=== PATIENT | female | born 1940 | race Caucasian/White ===

== ENCOUNTER 2017-06-05 17:13 | Inpatient (IN) | payer MEDICARE, OTHER ==
[2017-06-05] MEDS: SOD CHLORIDE 0.9% 1,000 ML IV (17:42)
[2017-06-05] MEDS: ONDANSETRON 4 MG INJ IV ×3 (17:42→21:48)
[2017-06-05] MEDS: morphine 4 MG/ML VIAL IV (17:43)
[2017-06-05 17:53] LABS: ABNORMAL IP MESSAGE 1; HEMATOCRIT 35.2 % (37.0-47.0); HEMOGLOBIN 12.1 g/dl (12.0-16.0); MEAN CORPUSCULAR HGB CONC 34.4 g/dl (32.0-37.0); MEAN CORPUSCULAR VOLUME 87.3 fl (82.0-101.0); MEAN PLATELET VOLUME 11.4 fl (7.4-10.4); NUCLEATED RED BLOOD CELLS% 0.2 /100WBC (0.0-0.0); PLATELET COUNT 253 10^3/UL (140-415); RED BLOOD COUNT 4.03 10^6/ul (4.20-5.40); RED CELL DISTRIBUTION WIDTH 13.7 % (11.5-14.5)
[2017-06-05 17:53] LABS: WHITE BLOOD COUNT 27.1 10^3/ul (4.8-10.8)
[2017-06-05 18:00] LABS: ADD MAN DIFF? YES; POSITIVE DIFF @See below
[2017-06-05 18:11] LABS: ALANINE AMINOTRANSFERASE 562 IU/L (13-69); ALBUMIN 3.3 g/dl (3.3-4.9); ALBUMIN/GLOBULIN RATIO 0.84; ALKALINE PHOSPHATASE 451 IU/L (42-121); ANION GAP 24 (8-16); ASPARTATE AMINO TRANSFERASE 499 IU/L (15-46); BILIRUBIN,INDIRECT 0.5 mg/dl (0-1.1); BLOOD UREA NITROGEN 67 mg/dl (7-20); CALCIUM 8.9 mg/dl (8.4-10.2); CARBON DIOXIDE 19 mmol/L (21-31); CHLORIDE 98 mmol/L (97-110); CREATININE 3.68 mg/dl (0.44-1.00); GLUCOSE 133 mg/dl (70-220); LIPASE 42 U/L (23-300); POTASSIUM 3.8 mmol/L (3.5-5.1); SODIUM 137 mmol/L (135-144); TOTAL PROTEIN 7.2 g/dl (6.1-8.1)
[2017-06-05 18:13] LABS: INR 1.17; PROTIME 15.1 Sec (11.9-14.9); PT RATIO 1.2
[2017-06-05 18:14] LABS: PARTIAL THROMBOPLASTIN TIME 28.7 Sec (25.0-35.0)
[2017-06-05 18:29] LABS: BAND NEUTROPHILS #M 4.8 10^3/ul (0.0-0.6); BAND NEUTROPHILS % (M) 18 % (0-4); GIANT THROMBO% (M) 1 % (0-0); LYMPHOCYTES #M 1.3 10^3/ul (0.8-2.9); LYMPHOCYTES % (M) 5 % (15-51); METAMYELOCYTES #M 0.5 10^3/ul (0.0-0.0); METAMYELOCYTES %M 2 % (0-0); MONOCYTE #M 2.4 10^3/ul (0.3-0.9); MONOCYTES % (M) 9 % (0-11); PLATELET ESTIMATE NORMAL; SEG NEUT #M 19.2 10^3/ul (1.6-7.5); SEGMENTED NEUTROPHILS (M) % 66 % (39-77); SMUDGE%M 1 % (0-0)
[2017-06-05] MEDS: PIPER-TAZO 3.375 GM IV (PMX) 100 ML IVPB (18:51)
[2017-06-05] MEDS: LACTATED RINGER'S 2,330 ML IV (18:53)
[2017-06-05 19:28] LABS: LACTIC ACID 4.1 mmol/L (0.5-2.0)
[2017-06-05 19:30] LABS: TROPONIN-I < 0.012 ng/ml (0.00-0.12)
[2017-06-05] MEDS: ACETAMINOPHEN 325 MG TAB PO (21:44)
[2017-06-05 22:06] LABS: LACTIC ACID 3.2 mmol/L (0.5-2.0)
[2017-06-06 00:29] LABS: LACTIC ACID 2.7 mmol/L (0.5-2.0)
[2017-06-06] MEDS: SOD CHLORIDE 0.9% 1,000 ML IV ×3 (01:46→16:00)
[2017-06-06] MEDS: ENOXAPARIN 80 MG/0.8 ML SYG SC (02:35)
[2017-06-06] MEDS: PIPER-TAZO 3.375 GM IV (PMX) 100 ML IVPB ×2 (06:30→18:21)
[2017-06-06] MEDS: PANTOPRAZOLE 40 MG INJ IV (06:30)
[2017-06-06 06:35] LABS: HAAIG REFLEX REFLEX FILED
[2017-06-06 06:39] LABS: ADD UMIC YES; UR ASCORBIC ACID NEGATIVE (NEGATIVE); UR BACTERIA FEW /HPF (NONE SEEN); UR BILIRUBIN (Dip) NEGATIVE (NEGATIVE); UR BLOOD (Dip) NEGATIVE (NEGATIVE); UR CLARITY CLOUDY (CLEAR); UR COLOR AMBER (YELLOW); UR GLUCOSE (Dip) NEGATIVE (NEGATIVE); UR KETONES (Dip) NEGATIVE (NEGATIVE); UR LEUKOCYTE ESTERASE (Dip) NEGATIVE Leu/ul (NEGATIVE); UR NITRITE (Dip) NEGATIVE (NEGATIVE); UR RBC 1 /HPF (0-5); UR SPECIFIC GRAVITY (Dip) 1.014 (1.003-1.030); UR SQUAMOUS EPITHELIAL CELL FEW /HPF (FEW); UR TOTAL PROTEIN (Dip) NEGATIVE (NEGATIVE); UR UROBILINOGEN (Dip) NEGATIVE (NEGATIVE); UR WBC 4 /HPF (0-5)
[2017-06-06 06:41] LABS: ABNORMAL IP MESSAGE 1; HEMATOCRIT 29.6 % (37.0-47.0); HEMOGLOBIN 10.4 g/dl (12.0-16.0); MEAN CORPUSCULAR HEMOGLOBIN 30.3 pg (29.0-33.0); MEAN CORPUSCULAR HGB CONC 35.1 g/dl (32.0-37.0); MEAN CORPUSCULAR VOLUME 86.3 fl (82.0-101.0); MEAN PLATELET VOLUME 11.4 fl (7.4-10.4); NUCLEATED RED BLOOD CELLS% 0.1 /100WBC (0.0-0.0); PLATELET COUNT 226 10^3/UL (140-415); RED BLOOD COUNT 3.43 10^6/ul (4.20-5.40)
[2017-06-06 06:41] LABS: WHITE BLOOD COUNT 33.9 10^3/ul (4.8-10.8)
[2017-06-06 06:52] LABS: ADD MAN DIFF? YES; POSITIVE DIFF @See below
[2017-06-06 07:01] LABS: ALANINE AMINOTRANSFERASE 425 IU/L (13-69); ALBUMIN 2.7 g/dl (3.3-4.9); ALBUMIN/GLOBULIN RATIO 0.79; ALKALINE PHOSPHATASE 341 IU/L (42-121); ANION GAP 19 (8-16); ASPARTATE AMINO TRANSFERASE 344 IU/L (15-46); BILIRUBIN,INDIRECT 0.5 mg/dl (0-1.1); BILIRUBIN,TOTAL 2.8 mg/dl (0.2-1.3); BLOOD UREA NITROGEN 72 mg/dl (7-20); CALCIUM 8.3 mg/dl (8.4-10.2); CARBON DIOXIDE 18 mmol/L (21-31); CHLORIDE 106 mmol/L (97-110); CREATININE 3.33 mg/dl (0.44-1.00); GLUCOSE 118 mg/dl (70-220); MAGNESIUM 2.2 mg/dl (1.7-2.5); POTASSIUM 4.6 mmol/L (3.5-5.1); SODIUM 138 mmol/L (135-144); TOTAL PROTEIN 6.1 g/dl (6.1-8.1)
[2017-06-06 07:11] LABS: BILIRUBIN,INDIRECT 0.4 mg/dl (0-1.1); BILIRUBIN,TOTAL 2.6 mg/dl (0.2-1.3)
[2017-06-06 07:21] LABS: AMYLASE < 30 U/L (11-123)
[2017-06-06 07:22] LABS: IRON 25 ug/dl (35-150)
[2017-06-06 07:29] LABS: CARCINOEMBRYONIC ANTIGEN 0.5 ng/ml (0.0-5.0)
[2017-06-06 07:33] LABS: % IRON SATURATION 13 % SAT (22-52); TOTAL IRON BINDING CAPACITY 186 ug/dl (241-421)
[2017-06-06 08:12] LABS: HEPATITIS B CORE ANTIBODY NEGATIVE (NEGATIVE); HEPATITIS C VIRAL ANTIBODY NEGATIVE (NEGATIVE)
[2017-06-06 08:13] LABS: BAND NEUTROPHILS #M 11.8 10^3/ul (0.0-0.6); BAND NEUTROPHILS % (M) 35 % (0-4); GIANT THROMBO% (M) 2 % (0-0); LYMPHOCYTES #M 2.3 10^3/ul (0.8-2.9); LYMPHOCYTES % (M) 7 % (15-51); MONOCYTE #M 0.6 10^3/ul (0.3-0.9); MONOCYTES % (M) 2 % (0-11); PLATELET ESTIMATE NORMAL; REACTIVE LYMPHOCYTES #M 0.3 10^3/ul (0.0-0.0); REACTIVE LYMPHOCYTES% (M) 1 % (0-0); SEG NEUT #M 22.6 10^3/ul (1.6-7.5); SEGMENTED NEUTROPHILS (M) % 55 % (39-77); SMUDGE%M 3 % (0-0)
[2017-06-06 08:18] LABS: HEPATITIS B SURFACE ANTIGEN NEGATIVE (NEGATIVE)
[2017-06-06] MEDS: SOD FERRIC GLUC COMPLX 125 MG in SOD CHLORIDE 0.9% 100 ML IVPB (16:49)
[2017-06-06 17:51] LABS: ALPHA FETOPROTEIN < 0.83 IU/L (0.00-7.21)
[2017-06-06 17:52] LABS: CANCER ANTIGEN 19-9 < 1.4 U/ml (0.0-37.0)
[2017-06-06 19:18] LABS: CREATININE,URINE RANDOM 91.14 mg/dl (20-320); PROTEIN/CREAT RATIO 0.29 RATIO
[2017-06-06] MEDS: ACETAMINOPHEN 650 MG SUPP PR (22:43)
[2017-06-06 23:58] LABS: LIPASE 38 U/L (23-300)
[2017-06-07] MEDS ORDERED: ENOXAPARIN 30 MG/0.3 ML SYG SC
[2017-06-07] MEDS: morphine 2 MG INJ IV (00:08)
[2017-06-07] MEDS: SOD CHLORIDE 0.9% 1,000 ML IV ×3 (00:19→18:11)
[2017-06-07 00:47] LABS: HEPATITIS C VIRAL ANTIBODY NEGATIVE (NEGATIVE)
[2017-06-07] MEDS: PIPER-TAZO 3.375 GM IV (PMX) 100 ML IVPB ×2 (05:22→18:11)
[2017-06-07] MEDS: PANTOPRAZOLE 40 MG INJ IV (05:22)
[2017-06-07] MEDS ORDERED: VANCOMYCIN IV PER PHARMACY XX (07:00)
[2017-06-07] MEDS: ENOXAPARIN 30 MG/0.3 ML SYG SC (08:20)
[2017-06-07 08:27] LABS: WHITE BLOOD COUNT 40.7 10^3/ul (4.8-10.8)
[2017-06-07 08:27] LABS: ABNORMAL IP MESSAGE 1; HEMATOCRIT 30.8 % (37.0-47.0); HEMOGLOBIN 10.9 g/dl (12.0-16.0); MEAN CORPUSCULAR HEMOGLOBIN 30.4 pg (29.0-33.0); MEAN CORPUSCULAR HGB CONC 35.4 g/dl (32.0-37.0); MEAN PLATELET VOLUME 11.7 fl (7.4-10.4); NUCLEATED RED BLOOD CELLS% 0.1 /100WBC (0.0-0.0); PLATELET COUNT 221 10^3/UL (140-415); RED BLOOD COUNT 3.58 10^6/ul (4.20-5.40); RED CELL DISTRIBUTION WIDTH 14.2 % (11.5-14.5)
[2017-06-07 08:36] LABS: ADD MAN DIFF? YES; POSITIVE DIFF @See below
[2017-06-07 08:46] LABS: AMYLASE 31 U/L (11-123)
[2017-06-07 09:18] LABS: HEMOGLOBIN A1C 5.5 % (0-5.9)
[2017-06-07 09:43] LABS: CARCINOEMBRYONIC ANTIGEN 0.4 ng/ml (0.0-5.0)
[2017-06-07] MEDS: VANCOMYCIN 1.75 GM in SOD CHLORIDE 0.9% 500 ML IVPB (09:47)
[2017-06-07 09:50] LABS: ALPHA FETOPROTEIN < 0.83 IU/L (0.00-7.21)
[2017-06-07 10:11] LABS: BAND NEUTROPHILS #M 13.4 10^3/ul (0.0-0.6); BAND NEUTROPHILS % (M) 33 % (0-4); HYPOCHROMASIA 1+ (0-0); LYMPHOCYTES #M 1.2 10^3/ul (0.8-2.9); LYMPHOCYTES % (M) 3 % (15-51); MONOCYTE #M 0.4 10^3/ul (0.3-0.9); MONOCYTES % (M) 1 % (0-11); PLATELET ESTIMATE NORMAL; POLYCHROMASIA 3+ (0-0); SEG NEUT #M 31.1 10^3/ul (1.6-7.5); SEGMENTED NEUTROPHILS (M) % 63 % (39-77); SMUDGE%M 4 % (0-0)
[2017-06-07 10:41] LABS: ALANINE AMINOTRANSFERASE 290 IU/L (13-69); ALBUMIN 2.1 g/dl (3.3-4.9); ALBUMIN/GLOBULIN RATIO 0.72; ALKALINE PHOSPHATASE 301 IU/L (42-121); ANION GAP 18 (8-16); ASPARTATE AMINO TRANSFERASE 161 IU/L (15-46); BILIRUBIN,INDIRECT 0.4 mg/dl (0-1.1); BILIRUBIN,TOTAL 2.9 mg/dl (0.2-1.3); BLOOD UREA NITROGEN 85 mg/dl (7-20); CALCIUM 7.8 mg/dl (8.4-10.2); CARBON DIOXIDE 18 mmol/L (21-31); CHLORIDE 112 mmol/L (97-110); CREATININE 2.72 mg/dl (0.44-1.00); GLUCOSE 104 mg/dl (70-220); MAGNESIUM 2.4 mg/dl (1.7-2.5); POTASSIUM 4.2 mmol/L (3.5-5.1); SODIUM 144 mmol/L (135-144)
[2017-06-07 16:30] LABS: RETICULOCYTE COUNT # 0.048 X10^6 (0.020-0.110); RETICULOCYTE COUNT % 1.4 % (0.5-1.5)
[2017-06-07 16:30] LABS: RETICULOCYTE RBC 3.43
[2017-06-07] MEDS: SOD FERRIC GLUC COMPLX 125 MG in SOD CHLORIDE 0.9% 100 ML IVPB (16:53)
[2017-06-07 17:13] LABS: IRON 44 ug/dl (35-150)
[2017-06-07 17:14] LABS: LACTATE DEHYDROGENASE 1128 IU/L (313-618)
[2017-06-07 17:14] LABS: URIC ACID 9.7 mg/dl (3.1-7.9)
[2017-06-07 17:22] LABS: % IRON SATURATION 26 % SAT (22-52); TOTAL IRON BINDING CAPACITY 170 ug/dl (241-421)
[2017-06-07 17:33] LABS: ERYTHROCYTE SEDIMENTATION RATE 115 mm/Hr (0-30)
[2017-06-07 17:41] LABS: THYROID STIMULATING HORMONE 0.375 MIU/L (0.465-4.680)
[2017-06-07 18:31] LABS: CANCER ANTIGEN 125 42.3 U/ml (0.0-35.0); CANCER ANTIGEN 19-9 < 1.4 U/ml (0.0-37.0)
[2017-06-07 20:01] LABS: FOLATE 19.2 ng/ml (2.8-20.0)
[2017-06-08] MEDS: SOD CHLORIDE 0.9% 1,000 ML IV (04:40)
[2017-06-08] MEDS: PIPER-TAZO 3.375 GM IV (PMX) 100 ML IVPB (04:47)
[2017-06-08] MEDS: PANTOPRAZOLE 40 MG INJ IV (04:47)
[2017-06-08 05:32] LABS: PROTEIN, TOTAL 4.9 g/dL (6.1-8.1)
[2017-06-08 09:09] LABS: WHITE BLOOD COUNT 48.6 10^3/ul (4.8-10.8)
[2017-06-08 09:09] LABS: ABNORMAL IP MESSAGE 1; HEMATOCRIT 27.4 % (37.0-47.0); HEMOGLOBIN 9.7 g/dl (12.0-16.0); MEAN CORPUSCULAR HEMOGLOBIN 30.1 pg (29.0-33.0); MEAN CORPUSCULAR HGB CONC 35.4 g/dl (32.0-37.0); MEAN CORPUSCULAR VOLUME 85.1 fl (82.0-101.0); MEAN PLATELET VOLUME 11.7 fl (7.4-10.4); NUCLEATED RED BLOOD CELLS% 0.2 /100WBC (0.0-0.0); PLATELET COUNT 213 10^3/UL (140-415); RED BLOOD COUNT 3.22 10^6/ul (4.20-5.40); RED CELL DISTRIBUTION WIDTH 14.5 % (11.5-14.5)
[2017-06-08 09:10] LABS: ADD MAN DIFF? YES; POSITIVE DIFF @See below
[2017-06-08] MEDS: ENOXAPARIN 30 MG/0.3 ML SYG SC (09:32)
[2017-06-08 09:33] LABS: ALANINE AMINOTRANSFERASE 241 IU/L (13-69); ALBUMIN 2.3 g/dl (3.3-4.9); ALBUMIN/GLOBULIN RATIO 0.67; ALKALINE PHOSPHATASE 378 IU/L (42-121); ANION GAP 18 (8-16); ASPARTATE AMINO TRANSFERASE 159 IU/L (15-46); BILIRUBIN,INDIRECT 0.5 mg/dl (0-1.1); BILIRUBIN,TOTAL 2.8 mg/dl (0.2-1.3); BLOOD UREA NITROGEN 84 mg/dl (7-20); CALCIUM 8.1 mg/dl (8.4-10.2); CARBON DIOXIDE 18 mmol/L (21-31); CHLORIDE 112 mmol/L (97-110); CREATININE 2.83 mg/dl (0.44-1.00); GLUCOSE 105 mg/dl (70-220); MAGNESIUM 2.6 mg/dl (1.7-2.5); PHOSPHORUS 6.8 mg/dl (2.5-4.9); POTASSIUM 3.7 mmol/L (3.5-5.1); SODIUM 144 mmol/L (135-144); TOTAL PROTEIN 5.7 g/dl (6.1-8.1)
[2017-06-08] MEDS: FUROSEMIDE 40 MG INJ IV (09:33)
[2017-06-08 09:53] LABS: ANISOCYTOSIS 1+ (0-0); BAND NEUTROPHILS #M 6.8 10^3/ul (0.0-0.6); BAND NEUTROPHILS % (M) 14 % (0-4); BASOPHIL #M 0.4 10^3/ul (0.0-0.0); BASOPHILS % (M) 1 % (0-2); LYMPHOCYTES #M 1.4 10^3/ul (0.8-2.9); LYMPHOCYTES % (M) 3 % (15-51); METAMYELOCYTES #M 2.4 10^3/ul (0.0-0.0); METAMYELOCYTES %M 5 % (0-0); MONOCYTE #M 0.4 10^3/ul (0.3-0.9); MONOCYTES % (M) 1 % (0-11); MYELOCYTES #M 0.9 10^3/ul (0.0-0.0); MYELOCYTES % (M) 2 % (0-0); PLATELET ESTIMATE NORMAL; POIKILOCYTOSIS 1+ (0-0); PROMYELOCYTES #M 1.4 10^3/ul (0-0); PROMYELOCYTES % (M) 3 % (0-0); SEG NEUT #M 37.8 10^3/ul (1.6-7.5); SEGMENTED NEUTROPHILS (M) % 71 % (39-77)
[2017-06-08] MEDS: PIPER-TAZO 2.25 GM (PMX) 50 ML IVPB ×2 (11:53→17:40)
[2017-06-08 12:33] LABS: CA27.29 39 U/mL (<38)
[2017-06-08] MEDS: SOD FERRIC GLUC COMPLX 125 MG in SOD CHLORIDE 0.9% 100 ML IVPB (17:38)
[2017-06-08 20:38] LABS: CANCER ANTIGEN 15-3 23 U/mL (<32)
[2017-06-08 21:22] LABS: PTH CALCIUM 7.7 mg/dL (8.6-10.4)
[2017-06-08] MEDS: NA PHOSPHATE/BIPHOS 133 ML ENEMA PR (22:00)
[2017-06-08] MEDS: GUAIFENESIN/CODEINE 5ML CUP PO (22:25)
[2017-06-08] MEDS: DOCUSATE SODIUM 100 MG CAP PO (22:25)
[2017-06-09] MEDS: PIPER-TAZO 2.25 GM (PMX) 50 ML IVPB ×4 (00:57→18:14)
[2017-06-09 06:15] LABS: ABNORMAL IP MESSAGE 1; HEMATOCRIT 27.7 % (37.0-47.0); MEAN CORPUSCULAR HEMOGLOBIN 30.6 pg (29.0-33.0); MEAN CORPUSCULAR HGB CONC 36.1 g/dl (32.0-37.0); MEAN CORPUSCULAR VOLUME 84.7 fl (82.0-101.0); MEAN PLATELET VOLUME 11.8 fl (7.4-10.4); NUCLEATED RED BLOOD CELLS% 0.2 /100WBC (0.0-0.0); PLATELET COUNT 204 10^3/UL (140-415); RED BLOOD COUNT 3.27 10^6/ul (4.20-5.40); RED CELL DISTRIBUTION WIDTH 14.2 % (11.5-14.5)
[2017-06-09 06:15] LABS: WHITE BLOOD COUNT 49.8 10^3/ul (4.8-10.8)
[2017-06-09] MEDS: PANTOPRAZOLE 40 MG INJ IV (06:16)
[2017-06-09 06:20] LABS: ADD MAN DIFF? YES; POSITIVE DIFF @See below
[2017-06-09 06:32] LABS: ALANINE AMINOTRANSFERASE 273 IU/L (13-69); ALBUMIN 2.4 g/dl (3.3-4.9); ALKALINE PHOSPHATASE 465 IU/L (42-121); ANION GAP 17 (8-16); ASPARTATE AMINO TRANSFERASE 218 IU/L (15-46); BLOOD UREA NITROGEN 78 mg/dl (7-20); CARBON DIOXIDE 20 mmol/L (21-31); CHLORIDE 112 mmol/L (97-110); CREATININE 2.65 mg/dl (0.44-1.00); GLUCOSE 116 mg/dl (70-220); MAGNESIUM 2.4 mg/dl (1.7-2.5); PHOSPHORUS 6.3 mg/dl (2.5-4.9); POTASSIUM 3.7 mmol/L (3.5-5.1); SODIUM 145 mmol/L (135-144); TOTAL PROTEIN 5.8 g/dl (6.1-8.1)
[2017-06-09 06:43] LABS: VANCOMYCIN,RANDOM 10.5 ug/ml
[2017-06-09 06:46] LABS: BILIRUBIN,INDIRECT 0.8 mg/dl (0-1.1); BILIRUBIN,TOTAL 4.1 mg/dl (0.2-1.3)
[2017-06-09 08:00] LABS: CREATININE,URINE RANDOM 67.96 mg/dl (20-320)
[2017-06-09 08:09] LABS: SODIUM,URINE RANDOM < 13 mmol/L (30-90)
[2017-06-09] MEDS: ENOXAPARIN 30 MG/0.3 ML SYG SC (09:00)
[2017-06-09 09:01] LABS: ANISOCYTOSIS 1+ (0-0); BAND NEUTROPHILS #M 4.9 10^3/ul (0.0-0.6); BAND NEUTROPHILS % (M) 10 % (0-4); BASOPHIL #M 0.4 10^3/ul (0.0-0.0); BASOPHILS % (M) 1 % (0-2); GIANT THROMBO% (M) 2 % (0-0); HYPOCHROMASIA 1+ (0-0); LYMPHOCYTES #M 2.9 10^3/ul (0.8-2.9); LYMPHOCYTES % (M) 6 % (15-51); METAMYELOCYTES #M 0.9 10^3/ul (0.0-0.0); METAMYELOCYTES %M 2 % (0-0); MONOCYTE #M 2.4 10^3/ul (0.3-0.9); MONOCYTES % (M) 5 % (0-11); MYELOCYTES #M 0.9 10^3/ul (0.0-0.0); MYELOCYTES % (M) 2 % (0-0); PLATELET ESTIMATE NORMAL; POLYCHROMASIA 1+ (0-0); PROMYELOCYTES #M 1.9 10^3/ul (0-0); PROMYELOCYTES % (M) 4 % (0-0); REACTIVE LYMPHOCYTES #M 0.9 10^3/ul (0.0-0.0); REACTIVE LYMPHOCYTES% (M) 2 % (0-0); SEG NEUT #M 36.3 10^3/ul (1.6-7.5); SEGMENTED NEUTROPHILS (M) % 68 % (39-77); SPHEROCYTES 1+ (0-0)
[2017-06-09 09:02] LABS: ALBUMIN 1.8 g/dL (3.8-4.8); ALBUMIN 1.9 g/dL (3.8-4.8); ALPHA-1-GLOBULINS 0.5 g/dL (0.2-0.3); ALPHA-1-GLOBULINS 0.6 g/dL (0.2-0.3); ALPHA-2-GLOBULINS 0.9 g/dL (0.5-0.9); BETA 2 GLOBULINS 0.5 g/dL (0.2-0.5); BETA 2 GLOBULINS 0.6 g/dL (0.2-0.5); BETA GLOBULINS 0.3 g/dL (0.4-0.6); GAMMA GLOBULINS 0.8 g/dL (0.8-1.7)
[2017-06-09] MEDS: DOCUSATE SODIUM 100 MG CAP PO ×2 (09:29→21:00)
[2017-06-09] MEDS: LACTULOSE 30ML CUP PO (12:45)
[2017-06-09] MEDS: FUROSEMIDE 20 MG INJ IV (12:46)
[2017-06-09 12:53] LABS: PTH INTACT 111 pg/mL (14-64)
[2017-06-09] MEDS: LACTATED RINGER'S 500 ML IV (18:14)
[2017-06-09] MEDS: VANCOMYCIN 1.25 GM in SOD CHLORIDE 0.9% 250 ML IVPB (18:14)
[2017-06-09 19:42] LABS: ERYTHROPOIETIN 44.9 mIU/mL (2.6-18.5)
[2017-06-10] MEDS: PIPER-TAZO 2.25 GM (PMX) 50 ML IVPB ×4 (00:18→17:35)
[2017-06-10] MEDS: PANTOPRAZOLE 40 MG INJ IV (05:54)
[2017-06-10] MEDS: DOCUSATE SODIUM 100 MG CAP PO ×2 (08:41→21:46)
[2017-06-10 09:08] LABS: WHITE BLOOD COUNT 42.1 10^3/ul (4.8-10.8)
[2017-06-10 09:08] LABS: ABNORMAL IP MESSAGE 1; HEMATOCRIT 27.5 % (37.0-47.0); HEMOGLOBIN 9.9 g/dl (12.0-16.0); MEAN CORPUSCULAR HEMOGLOBIN 30.7 pg (29.0-33.0); MEAN CORPUSCULAR VOLUME 85.1 fl (82.0-101.0); MEAN PLATELET VOLUME 11.7 fl (7.4-10.4); NUCLEATED RED BLOOD CELLS% 0.1 /100WBC (0.0-0.0); PLATELET COUNT 213 10^3/UL (140-415); RED BLOOD COUNT 3.23 10^6/ul (4.20-5.40); RED CELL DISTRIBUTION WIDTH 14.5 % (11.5-14.5)
[2017-06-10 09:14] LABS: POSITIVE DIFF @See below
[2017-06-10 09:15] LABS: ADD MAN DIFF? YES
[2017-06-10 09:27] LABS: ANION GAP 15 (8-16); BLOOD UREA NITROGEN 64 mg/dl (7-20); CARBON DIOXIDE 23 mmol/L (21-31); CHLORIDE 112 mmol/L (97-110); CREATININE 1.94 mg/dl (0.44-1.00); GLUCOSE 118 mg/dl (70-220); POTASSIUM 3.5 mmol/L (3.5-5.1); SODIUM 146 mmol/L (135-144)
[2017-06-10] MEDS: ENOXAPARIN 30 MG/0.3 ML SYG SC (09:49)
[2017-06-10 10:21] LABS: ANISOCYTOSIS 1+ (0-0); BAND NEUTROPHILS % (M) 12 % (0-4); EOSINOPHILS % (M) 2 % (0-7); ERYTHROBLAST% (NRBC) (M) 1 % (0-0); GIANT THROMBO% (M) 1 % (0-0); HYPOCHROMASIA 1+ (0-0); LYMPHOCYTES #M 4.2 10^3/ul (0.8-2.9); LYMPHOCYTES % (M) 10 % (15-51); METAMYELOCYTES #M 1.2 10^3/ul (0.0-0.0); METAMYELOCYTES %M 3 % (0-0); MONOCYTE #M 1.2 10^3/ul (0.3-0.9); MONOCYTES % (M) 3 % (0-11); MYELOCYTES #M 0.4 10^3/ul (0.0-0.0); MYELOCYTES % (M) 1 % (0-0); PLATELET ESTIMATE NORMAL; POLYCHROMASIA 2+ (0-0); SEG NEUT #M 31.2 10^3/ul (1.6-7.5); SEGMENTED NEUTROPHILS (M) % 69 % (39-77); SMUDGE%M 2 % (0-0); TARGET CELLS 1+ (0-0)
[2017-06-10] MEDS: SOD CHLORIDE 0.45% 1,000 ML IV (12:57)
[2017-06-10 13:41] LABS: OCCULT BLOOD STOOL NEGATIVE (NEGATIVE)
[2017-06-10 14:32] LABS: PROLACTIN 38.3 ng/mL
[2017-06-10] MEDS: FUROSEMIDE 20 MG INJ IV (18:04)
[2017-06-10] MEDS: LUBIPROSTONE 24 MCG CAP PO (21:46)
[2017-06-11] MEDS: PIPER-TAZO 2.25 GM (PMX) 50 ML IVPB ×4 (01:18→17:30)
[2017-06-11] MEDS: SOD CHLORIDE 0.45% 1,000 ML IV (02:50)
[2017-06-11] MEDS: PANTOPRAZOLE 40 MG INJ IV (05:38)
[2017-06-11 05:50] LABS: ABNORMAL IP MESSAGE 1; HEMATOCRIT 26.9 % (37.0-47.0); HEMOGLOBIN 9.7 g/dl (12.0-16.0); MEAN CORPUSCULAR HEMOGLOBIN 30.4 pg (29.0-33.0); MEAN CORPUSCULAR HGB CONC 36.1 g/dl (32.0-37.0); MEAN CORPUSCULAR VOLUME 84.3 fl (82.0-101.0); MEAN PLATELET VOLUME 11.8 fl (7.4-10.4); NUCLEATED RED BLOOD CELLS% 0.1 /100WBC (0.0-0.0); PLATELET COUNT 223 10^3/UL (140-415); RED BLOOD COUNT 3.19 10^6/ul (4.20-5.40); RED CELL DISTRIBUTION WIDTH 14.1 % (11.5-14.5)
[2017-06-11 05:50] LABS: WHITE BLOOD COUNT 39.1 10^3/ul (4.8-10.8)
[2017-06-11 05:52] LABS: ADD MAN DIFF? YES; POSITIVE DIFF @See below
[2017-06-11 06:11] LABS: VANCOMYCIN,RANDOM 11.4 ug/ml
[2017-06-11 06:12] LABS: ALANINE AMINOTRANSFERASE 188 IU/L (13-69); ALBUMIN 2.4 g/dl (3.3-4.9); ALBUMIN/GLOBULIN RATIO 0.66; ALKALINE PHOSPHATASE 571 IU/L (42-121); ANION GAP 17 (8-16); ASPARTATE AMINO TRANSFERASE 106 IU/L (15-46); BILIRUBIN,INDIRECT 1.1 mg/dl (0-1.1); BILIRUBIN,TOTAL 4.9 mg/dl (0.2-1.3); BLOOD UREA NITROGEN 56 mg/dl (7-20); CARBON DIOXIDE 22 mmol/L (21-31); CHLORIDE 110 mmol/L (97-110); CREATININE 1.79 mg/dl (0.44-1.00); GLUCOSE 113 mg/dl (70-220); SODIUM 146 mmol/L (135-144)
[2017-06-11 07:34] LABS: ANISOCYTOSIS 1+ (0-0); BAND NEUTROPHILS #M 3.9 10^3/ul (0.0-0.6); BAND NEUTROPHILS % (M) 10 % (0-4); GIANT THROMBO% (M) 1 % (0-0); LYMPHOCYTES #M 1.5 10^3/ul (0.8-2.9); LYMPHOCYTES % (M) 4 % (15-51); METAMYELOCYTES #M 0.7 10^3/ul (0.0-0.0); METAMYELOCYTES %M 2 % (0-0); MONOCYTE #M 1.1 10^3/ul (0.3-0.9); MONOCYTES % (M) 3 % (0-11); MYELOCYTES #M 1.1 10^3/ul (0.0-0.0); MYELOCYTES % (M) 3 % (0-0); PLATELET ESTIMATE NORMAL; POLYCHROMASIA 2+ (0-0); SEGMENTED NEUTROPHILS (M) % 78 % (39-77); SMUDGE%M 2 % (0-0)
[2017-06-11] MEDS: LUBIPROSTONE 24 MCG CAP PO ×2 (08:19→22:27)
[2017-06-11] MEDS: CHOLECALCIFEROL 2,000 UNIT CAP PO (08:19)
[2017-06-11] MEDS: DOCUSATE SODIUM 100 MG CAP PO ×2 (08:19→22:27)
[2017-06-11] MEDS: POTASSIUM CHLORIDE 20 MEQ POWDER FOR ORAL SOLN PO (08:20)
[2017-06-11] MEDS: ENOXAPARIN 30 MG/0.3 ML SYG SC (08:36)
[2017-06-11] MEDS: D5W + KCL 20 MEQ 1,000 ML IV (11:17)
[2017-06-11] MEDS: VANCOMYCIN 1.25 GM in SOD CHLORIDE 0.9% 250 ML IVPB (14:04)
[2017-06-12] MEDS: D5W + KCL 20 MEQ 1,000 ML IV ×3 (02:06→23:10)
[2017-06-12] MEDS: PIPER-TAZO 2.25 GM (PMX) 50 ML IVPB ×5 (02:06→23:18)
[2017-06-12] MEDS: PANTOPRAZOLE 40 MG INJ IV (06:28)
[2017-06-12 06:53] LABS: WHITE BLOOD COUNT 30.7 10^3/ul (4.8-10.8)
[2017-06-12 06:53] LABS: ABNORMAL IP MESSAGE 1; HEMATOCRIT 25.1 % (37.0-47.0); HEMOGLOBIN 8.8 g/dl (12.0-16.0); MEAN CORPUSCULAR HGB CONC 35.1 g/dl (32.0-37.0); MEAN CORPUSCULAR VOLUME 85.7 fl (82.0-101.0); MEAN PLATELET VOLUME 11.9 fl (7.4-10.4); NUCLEATED RED BLOOD CELLS% 0.1 /100WBC (0.0-0.0); PLATELET COUNT 252 10^3/UL (140-415); RED BLOOD COUNT 2.93 10^6/ul (4.20-5.40); RED CELL DISTRIBUTION WIDTH 14.8 % (11.5-14.5)
[2017-06-12 07:05] LABS: ADD MAN DIFF? YES; POSITIVE DIFF @See below
[2017-06-12 07:10] LABS: ALANINE AMINOTRANSFERASE 134 IU/L (13-69); ALBUMIN 2.3 g/dl (3.3-4.9); ALBUMIN/GLOBULIN RATIO 0.62; ALKALINE PHOSPHATASE 645 IU/L (42-121); ANION GAP 13 (8-16); ASPARTATE AMINO TRANSFERASE 88 IU/L (15-46); BILIRUBIN,TOTAL 2.6 mg/dl (0.2-1.3); BLOOD UREA NITROGEN 43 mg/dl (7-20); CALCIUM 7.8 mg/dl (8.4-10.2); CARBON DIOXIDE 24 mmol/L (21-31); CHLORIDE 111 mmol/L (97-110); GLUCOSE 141 mg/dl (70-220); MAGNESIUM 1.7 mg/dl (1.7-2.5); POTASSIUM 3.5 mmol/L (3.5-5.1); SODIUM 144 mmol/L (135-144)
[2017-06-12] MEDS: ENOXAPARIN 30 MG/0.3 ML SYG SC (08:42)
[2017-06-12] MEDS: DOCUSATE SODIUM 100 MG CAP PO ×2 (08:42→20:22)
[2017-06-12] MEDS: LUBIPROSTONE 24 MCG CAP PO ×2 (08:42→20:21)
[2017-06-12] MEDS: CHOLECALCIFEROL 2,000 UNIT CAP PO (08:42)
[2017-06-12 10:28] LABS: ANISOCYTOSIS 1+ (0-0); BAND NEUTROPHILS #M 2.4 10^3/ul (0.0-0.6); BAND NEUTROPHILS % (M) 8 % (0-4); LYMPHOCYTES #M 1.8 10^3/ul (0.8-2.9); LYMPHOCYTES % (M) 6 % (15-51); METAMYELOCYTES #M 0.3 10^3/ul (0.0-0.0); METAMYELOCYTES %M 1 % (0-0); MONOCYTE #M 0.3 10^3/ul (0.3-0.9); MONOCYTES % (M) 1 % (0-11); PLATELET ESTIMATE NORMAL; REACTIVE LYMPHOCYTES #M 0.3 10^3/ul (0.0-0.0); REACTIVE LYMPHOCYTES% (M) 1 % (0-0); SEG NEUT #M 26.2 10^3/ul (1.6-7.5); SEGMENTED NEUTROPHILS (M) % 83 % (39-77); SMUDGE%M 7 % (0-0)
[2017-06-12] MEDS: LIDOCAINE 1% (MDV) 10 ML INJ (10:40)
[2017-06-12] MEDS: FENTAnyl 50 MCG/ML VIAL (10:45)
[2017-06-12] MEDS: MIDAZOLAM 1 MG/ML 2 ML INJ (10:50)
[2017-06-12] MEDS: POTASSIUM CHLORIDE (SR) 10 MEQ TAB PO (12:11)
[2017-06-12] MEDS: VANCOMYCIN 1 GM 250 ML IVPB (15:00)
[2017-06-13] MEDS: PIPER-TAZO 2.25 GM (PMX) 50 ML IVPB ×3 (05:43→18:01)
[2017-06-13] MEDS: PANTOPRAZOLE 40 MG INJ IV (05:43)
[2017-06-13] MEDS: LUBIPROSTONE 24 MCG CAP PO ×2 (09:13→22:15)
[2017-06-13] MEDS: CHOLECALCIFEROL 2,000 UNIT CAP PO (09:14)
[2017-06-13] MEDS: DOCUSATE SODIUM 100 MG CAP PO ×2 (09:19→21:00)
[2017-06-13] MEDS: ENOXAPARIN 30 MG/0.3 ML SYG SC (09:34)
[2017-06-13] MEDS: VANCOMYCIN 1 GM 250 ML IVPB (14:46)
[2017-06-13] MEDS: D5W + KCL 20 MEQ 1,000 ML IV ×2 (15:50→18:59)
[2017-06-14] MEDS: PIPER-TAZO 2.25 GM (PMX) 50 ML IVPB ×4 (06:33→18:18)
[2017-06-14] MEDS: PANTOPRAZOLE 40 MG INJ IV (06:33)
[2017-06-14 07:10] LABS: ABNORMAL IP MESSAGE 1; HEMATOCRIT 27.4 % (37.0-47.0); HEMOGLOBIN 9.4 g/dl (12.0-16.0); MEAN CORPUSCULAR HEMOGLOBIN 31.2 pg (29.0-33.0); MEAN CORPUSCULAR HGB CONC 34.3 g/dl (32.0-37.0); MEAN PLATELET VOLUME 11.4 fl (7.4-10.4); NUCLEATED RED BLOOD CELLS% 0.1 /100WBC (0.0-0.0); PLATELET COUNT 327 10^3/UL (140-415); POSITIVE DIFF @See below; RED BLOOD COUNT 3.01 10^6/ul (4.20-5.40); RED CELL DISTRIBUTION WIDTH 17.6 % (11.5-14.5)
[2017-06-14 07:10] LABS: WHITE BLOOD COUNT 28.9 10^3/ul (4.8-10.8)
[2017-06-14 07:11] LABS: ADD MAN DIFF? YES
[2017-06-14 07:33] LABS: BLOOD UREA NITROGEN 25 mg/dl (7-20)
[2017-06-14 07:33] LABS: CREATININE 0.91 mg/dl (0.44-1.00)
[2017-06-14] MEDS: DOCUSATE SODIUM 100 MG CAP PO ×2 (08:31→21:00)
[2017-06-14] MEDS: LUBIPROSTONE 24 MCG CAP PO ×2 (08:31→21:00)
[2017-06-14] MEDS: CHOLECALCIFEROL 2,000 UNIT CAP PO (08:31)
[2017-06-14] MEDS: ENOXAPARIN 30 MG/0.3 ML SYG SC (08:34)
[2017-06-14 09:39] LABS: ANISOCYTOSIS 2+ (0-0); BAND NEUTROPHILS #M 2.3 10^3/ul (0.0-0.6); BAND NEUTROPHILS % (M) 8 % (0-4); GIANT THROMBO% (M) 1 % (0-0); HYPOCHROMASIA 1+ (0-0); LYMPHOCYTES #M 1.4 10^3/ul (0.8-2.9); LYMPHOCYTES % (M) 5 % (15-51); PLATELET ESTIMATE NORMAL; POLYCHROMASIA 1+ (0-0); REACTIVE LYMPHOCYTES #M 0.2 10^3/ul (0.0-0.0); REACTIVE LYMPHOCYTES% (M) 1 % (0-0); SEG NEUT #M 25.5 10^3/ul (1.6-7.5); SEGMENTED NEUTROPHILS (M) % 86 % (39-77); SMUDGE%M 1 % (0-0)
[2017-06-14] MEDS: FUROSEMIDE 20 MG INJ IV ×2 (13:54→18:18)
[2017-06-14] MEDS: VANCOMYCIN 1 GM 250 ML IVPB (15:06)
[2017-06-14] MEDS ORDERED: AMIODARONE 900 MG in DEXTROSE 5% 482 ML IV (18:00)
[2017-06-14 18:39] LABS: ADD MAN DIFF? NO
[2017-06-14 18:43] LABS: ABNORMAL IP MESSAGE 1; BASOPHIL # 0.1 10^3/ul (0.0-0.1); BASOPHILS % 0.2 % (0.0-2.0); EOSINOPHILS % 0.1 % (0.0-7.0); HEMATOCRIT 30.6 % (37.0-47.0); HEMOGLOBIN 10.4 g/dl (12.0-16.0); LYMPHOCYTES # 1.7 10^3/ul (0.8-2.9); LYMPHOCYTES % 5.8 % (15.0-51.0); MEAN CORPUSCULAR HEMOGLOBIN 31.1 pg (29.0-33.0); MEAN CORPUSCULAR VOLUME 91.6 fl (82.0-101.0); MEAN PLATELET VOLUME 11.5 fl (7.4-10.4); MONOCYTE # 0.8 10^3/ul (0.3-0.9); MONOCYTES % 2.6 % (0.0-11.0); NEUTROPHIL # 26.3 10^3/ul (1.6-7.5); NEUTROPHILS % 89.7 % (39.0-77.0); NUCLEATED RED BLOOD CELLS% 0.1 /100WBC (0.0-0.0); PLATELET COUNT 374 10^3/UL (140-415); RED BLOOD COUNT 3.34 10^6/ul (4.20-5.40); RED CELL DISTRIBUTION WIDTH 17.5 % (11.5-14.5)
[2017-06-14 18:43] LABS: WHITE BLOOD COUNT 29.4 10^3/ul (4.8-10.8)
[2017-06-14 18:50] LABS: POSITIVE DIFF @See below
[2017-06-14 19:10] LABS: ANION GAP 16 (8-16)
[2017-06-14 19:11] LABS: CHLORIDE 109 mmol/L (97-110); POTASSIUM 3.9 mmol/L (3.5-5.1); SODIUM 141 mmol/L (135-144)
[2017-06-14 19:12] LABS: BLOOD UREA NITROGEN 25 mg/dl (7-20); CARBON DIOXIDE 20 mmol/L (21-31); CREATININE 1.05 mg/dl (0.44-1.00); GLUCOSE 157 mg/dl (70-220)
[2017-06-14] MEDS: METOPROLOL 5 MG INJ IV (19:29)
[2017-06-15] MEDS: PIPER-TAZO 2.25 GM (PMX) 50 ML IVPB ×4 (00:56→19:35)
[2017-06-15] MEDS: GUAIFENESIN/CODEINE 5ML CUP PO ×2 (06:42→19:33)
[2017-06-15] MEDS: PANTOPRAZOLE 40 MG INJ IV (06:44)
[2017-06-15 08:21] LABS: ADD MAN DIFF? NO
[2017-06-15 08:30] LABS: WHITE BLOOD COUNT 25.1 10^3/ul (4.8-10.8)
[2017-06-15 08:30] LABS: ABNORMAL IP MESSAGE 1; BASOPHIL # 0.1 10^3/ul (0.0-0.1); BASOPHILS % 0.2 % (0.0-2.0); EOSINOPHILS % 0.1 % (0.0-7.0); HEMATOCRIT 27.7 % (37.0-47.0); HEMOGLOBIN 9.2 g/dl (12.0-16.0); LYMPHOCYTES # 1.9 10^3/ul (0.8-2.9); LYMPHOCYTES % 7.5 % (15.0-51.0); MEAN CORPUSCULAR HEMOGLOBIN 30.7 pg (29.0-33.0); MEAN CORPUSCULAR HGB CONC 33.2 g/dl (32.0-37.0); MEAN CORPUSCULAR VOLUME 92.3 fl (82.0-101.0); MEAN PLATELET VOLUME 11.3 fl (7.4-10.4); MONOCYTE # 0.9 10^3/ul (0.3-0.9); MONOCYTES % 3.6 % (0.0-11.0); NEUTROPHIL # 21.9 10^3/ul (1.6-7.5); NEUTROPHILS % 87.1 % (39.0-77.0); PLATELET COUNT 373 10^3/UL (140-415); RED CELL DISTRIBUTION WIDTH 18.2 % (11.5-14.5)
[2017-06-15 08:49] LABS: POSITIVE DIFF @See below
[2017-06-15] MEDS: CHOLECALCIFEROL 2,000 UNIT CAP PO (08:59)
[2017-06-15] MEDS: DOCUSATE SODIUM 100 MG CAP PO ×2 (09:00→19:57)
[2017-06-15] MEDS: LUBIPROSTONE 24 MCG CAP PO ×2 (09:00→19:57)
[2017-06-15] MEDS: ENOXAPARIN 30 MG/0.3 ML SYG SC (09:01)
[2017-06-15] MEDS: METOPROLOL 5 MG INJ IV (10:42)
[2017-06-15] MEDS: VANCOMYCIN 1 GM 250 ML IVPB (14:00)
[2017-06-15] MEDS: FUROSEMIDE 40 MG INJ IV ×2 (14:18→19:26)
[2017-06-15] MEDS: METOPROLOL 25 MG TAB PO ×2 (14:18→22:00)
[2017-06-15] MEDS: AMIODARONE 900 MG in DEXTROSE 5% 482 ML IV ×2 (14:30→14:45)
[2017-06-15 14:33] LABS: VANCOMYCIN,TROUGH 11.6 ug/ml (10.0-20.0)
[2017-06-15] MEDS: AMIODARONE 150MG/D5W BOLUS 100 ML IV (14:53)
[2017-06-15] MEDS: VANCOMYCIN 1.25 GM in SOD CHLORIDE 0.9% 250 ML IVPB (16:13)
[2017-06-16] MEDS: PIPER-TAZO 2.25 GM (PMX) 50 ML IVPB ×5 (00:01→23:33)
[2017-06-16] MEDS: METOPROLOL 5 MG INJ IV (04:10)
[2017-06-16] MEDS: PANTOPRAZOLE 40 MG INJ IV (06:10)
[2017-06-16] MEDS: FUROSEMIDE 40 MG INJ IV ×3 (06:11→22:00)
[2017-06-16] MEDS: DOCUSATE SODIUM 100 MG CAP PO ×2 (08:49→21:00)
[2017-06-16] MEDS: LUBIPROSTONE 24 MCG CAP PO ×2 (08:49→22:03)
[2017-06-16] MEDS: CHOLECALCIFEROL 2,000 UNIT CAP PO (08:49)
[2017-06-16] MEDS: METOPROLOL 25 MG TAB PO ×3 (08:50→17:07)
[2017-06-16] MEDS: ENOXAPARIN 30 MG/0.3 ML SYG SC (08:59)
[2017-06-16] MEDS: AMIODARONE 900 MG in DEXTROSE 5% 482 ML IV (14:43)
[2017-06-16 15:34] LABS: ADD MAN DIFF? NO
[2017-06-16 15:36] LABS: BASOPHILS % 0.2 % (0.0-2.0); EOSINOPHILS % 0.1 % (0.0-7.0); HEMATOCRIT 28.4 % (37.0-47.0); HEMOGLOBIN 9.5 g/dl (12.0-16.0); LYMPHOCYTES # 1.2 10^3/ul (0.8-2.9); LYMPHOCYTES % 6.1 % (15.0-51.0); MEAN CORPUSCULAR HEMOGLOBIN 31.1 pg (29.0-33.0); MEAN CORPUSCULAR HGB CONC 33.5 g/dl (32.0-37.0); MEAN CORPUSCULAR VOLUME 93.1 fl (82.0-101.0); MONOCYTE # 0.9 10^3/ul (0.3-0.9); MONOCYTES % 4.4 % (0.0-11.0); NEUTROPHIL # 16.9 10^3/ul (1.6-7.5); NEUTROPHILS % 88.3 % (39.0-77.0); PLATELET COUNT 430 10^3/UL (140-415); RED BLOOD COUNT 3.05 10^6/ul (4.20-5.40); RED CELL DISTRIBUTION WIDTH 18.8 % (11.5-14.5)
[2017-06-16 15:36] LABS: WHITE BLOOD COUNT 19.1 10^3/ul (4.8-10.8)
[2017-06-16 15:56] LABS: ALANINE AMINOTRANSFERASE 92 IU/L (13-69); ALBUMIN 2.5 g/dl (3.3-4.9); ALKALINE PHOSPHATASE 872 IU/L (42-121); ANION GAP 13 (8-16); ASPARTATE AMINO TRANSFERASE 86 IU/L (15-46); BILIRUBIN,INDIRECT 0.8 mg/dl (0-1.1); BILIRUBIN,TOTAL 0.8 mg/dl (0.2-1.3); BLOOD UREA NITROGEN 29 mg/dl (7-20); CALCIUM 7.6 mg/dl (8.4-10.2); CARBON DIOXIDE 26 mmol/L (21-31); CHLORIDE 109 mmol/L (97-110); CREATININE 1.33 mg/dl (0.44-1.00); GLUCOSE 113 mg/dl (70-220); POTASSIUM 3.3 mmol/L (3.5-5.1); SODIUM 145 mmol/L (135-144); TOTAL PROTEIN 6.6 g/dl (6.1-8.1)
[2017-06-16] MEDS: VANCOMYCIN 1.25 GM in SOD CHLORIDE 0.9% 250 ML IVPB (16:00)
[2017-06-16] MEDS: POTASSIUM CHLORIDE (SR) 20 MEQ TAB PO ×2 (18:08→22:03)
[2017-06-17] MEDS: METOPROLOL 25 MG TAB PO ×2 (01:19→09:19)
[2017-06-17] MEDS: PANTOPRAZOLE 40 MG INJ IV (06:02)
[2017-06-17] MEDS: PIPER-TAZO 2.25 GM (PMX) 50 ML IVPB ×3 (06:02→18:19)
[2017-06-17] MEDS: FUROSEMIDE 40 MG INJ IV ×3 (06:03→21:35)
[2017-06-17 08:21] LABS: ADD MAN DIFF? NO
[2017-06-17 08:33] LABS: WHITE BLOOD COUNT 16.5 10^3/ul (4.8-10.8)
[2017-06-17 08:33] LABS: BASOPHILS % 0.1 % (0.0-2.0); EOSINOPHILS % 0.1 % (0.0-7.0); HEMATOCRIT 28.1 % (37.0-47.0); HEMOGLOBIN 9.2 g/dl (12.0-16.0); LYMPHOCYTES # 1.2 10^3/ul (0.8-2.9); LYMPHOCYTES % 7.4 % (15.0-51.0); MEAN CORPUSCULAR HEMOGLOBIN 30.6 pg (29.0-33.0); MEAN CORPUSCULAR HGB CONC 32.7 g/dl (32.0-37.0); MEAN CORPUSCULAR VOLUME 93.4 fl (82.0-101.0); MEAN PLATELET VOLUME 10.9 fl (7.4-10.4); MONOCYTE # 0.8 10^3/ul (0.3-0.9); MONOCYTES % 4.6 % (0.0-11.0); NEUTROPHIL # 14.4 10^3/ul (1.6-7.5); PLATELET COUNT 444 10^3/UL (140-415); RED BLOOD COUNT 3.01 10^6/ul (4.20-5.40); RED CELL DISTRIBUTION WIDTH 19.4 % (11.5-14.5)
[2017-06-17 08:51] LABS: ANION GAP 16 (8-16); BLOOD UREA NITROGEN 30 mg/dl (7-20); CALCIUM 7.7 mg/dl (8.4-10.2); CARBON DIOXIDE 27 mmol/L (21-31); CHLORIDE 108 mmol/L (97-110); CREATININE 1.28 mg/dl (0.44-1.00); GLUCOSE 117 mg/dl (70-220); POTASSIUM 3.5 mmol/L (3.5-5.1); SODIUM 147 mmol/L (135-144)
[2017-06-17 08:54] LABS: MAGNESIUM 1.4 mg/dl (1.7-2.5)
[2017-06-17] MEDS: DOCUSATE SODIUM 100 MG CAP PO ×2 (09:00→21:00)
[2017-06-17 09:01] LABS: IRON 74 ug/dl (35-150)
[2017-06-17 09:10] LABS: % IRON SATURATION 34 % SAT (22-52); TOTAL IRON BINDING CAPACITY 220 ug/dl (241-421)
[2017-06-17] MEDS: CHOLECALCIFEROL 2,000 UNIT CAP PO (09:17)
[2017-06-17] MEDS: LUBIPROSTONE 24 MCG CAP PO ×2 (09:17→21:34)
[2017-06-17] MEDS: ENOXAPARIN 30 MG/0.3 ML SYG SC (09:24)
[2017-06-17] MEDS: AMIODARONE 900 MG in DEXTROSE 5% 482 ML IV (10:00)
[2017-06-17 10:21] LABS: ERYTHROCYTE SEDIMENTATION RATE 117 mm/Hr (0-30)
[2017-06-17 11:15] LABS: PHOSPHORUS 3.9 mg/dl (2.5-4.9)
[2017-06-17] MEDS: POTASSIUM CHLORIDE (SR) 20 MEQ TAB PO ×2 (11:19→21:35)
[2017-06-17] MEDS: FUROSEMIDE 40 MG INJ IM (11:19)
[2017-06-17] MEDS: MAGNESIUM SULFATE 2 GM/50 ML 50 ML IVPB (11:20)
[2017-06-17 11:29] LABS: C-REACTIVE PROTEIN 7.9 mg/dl (0.0-0.9)
[2017-06-17] MEDS: VANCOMYCIN 1.25 GM in SOD CHLORIDE 0.9% 250 ML IVPB (16:28)
[2017-06-17] MEDS: METOPROLOL 50 MG TAB PO (18:21)
[2017-06-18] MEDS: METOPROLOL 50 MG TAB PO ×4 (00:39→18:00)
[2017-06-18] MEDS: PIPER-TAZO 2.25 GM (PMX) 50 ML IVPB ×4 (00:39→18:38)
[2017-06-18] MEDS: METOPROLOL 5 MG INJ IV (01:56)
[2017-06-18] MEDS: DIGOXIN 500 MCG INJ IV (04:38)
[2017-06-18] MEDS: PANTOPRAZOLE 40 MG INJ IV (06:16)
[2017-06-18] MEDS: FUROSEMIDE 40 MG INJ IV ×3 (06:17→20:46)
[2017-06-18] MEDS: LUBIPROSTONE 24 MCG CAP PO ×2 (08:15→20:44)
[2017-06-18] MEDS: ENOXAPARIN 30 MG/0.3 ML SYG SC (08:16)
[2017-06-18] MEDS: POTASSIUM CHLORIDE (SR) 20 MEQ TAB PO ×2 (08:16→20:46)
[2017-06-18] MEDS: DOCUSATE SODIUM 100 MG CAP PO ×2 (08:16→20:44)
[2017-06-18] MEDS: CHOLECALCIFEROL 2,000 UNIT CAP PO (08:16)
[2017-06-18] MEDS: MAGNESIUM SULFATE 2 GM/50 ML 50 ML IVPB (09:20)
[2017-06-18 09:26] LABS: ADD MAN DIFF? NO
[2017-06-18 09:31] LABS: BASOPHILS % 0.3 % (0.0-2.0); EOSINOPHILS % 0.1 % (0.0-7.0); HEMATOCRIT 29.1 % (37.0-47.0); HEMOGLOBIN 9.4 g/dl (12.0-16.0); LYMPHOCYTES # 0.8 10^3/ul (0.8-2.9); LYMPHOCYTES % 6.6 % (15.0-51.0); MEAN CORPUSCULAR HEMOGLOBIN 30.6 pg (29.0-33.0); MEAN CORPUSCULAR HGB CONC 32.3 g/dl (32.0-37.0); MEAN CORPUSCULAR VOLUME 94.8 fl (82.0-101.0); MEAN PLATELET VOLUME 10.6 fl (7.4-10.4); MONOCYTE # 0.5 10^3/ul (0.3-0.9); MONOCYTES % 4.1 % (0.0-11.0); NEUTROPHIL # 10.3 10^3/ul (1.6-7.5); PLATELET COUNT 419 10^3/UL (140-415); RED BLOOD COUNT 3.07 10^6/ul (4.20-5.40); RED CELL DISTRIBUTION WIDTH 19.9 % (11.5-14.5)
[2017-06-18 09:31] LABS: WHITE BLOOD COUNT 11.7 10^3/ul (4.8-10.8)
[2017-06-18 09:46] LABS: IRON 52 ug/dl (35-150)
[2017-06-18 09:56] LABS: % IRON SATURATION 24 % SAT (22-52); TOTAL IRON BINDING CAPACITY 218 ug/dl (241-421)
[2017-06-18] MEDS: MIDAZOLAM 1 MG/ML 2 ML INJ (11:11)
[2017-06-18] MEDS: FENTAnyl 50 MCG/ML VIAL ×2 (11:12)
[2017-06-18] MEDS: LIDOCAINE 1% (MDV) 10 ML INJ ×2 (11:52→15:00)
[2017-06-18] MEDS ORDERED: FENTAnyl 50 MCG/ML VIAL (13:09)
[2017-06-18] MEDS ORDERED: METOCLOPRAMIDE 10 MG INJ IV (13:30)
[2017-06-18] MEDS ORDERED: DIPHENHYDRAMINE 50 MG INJ IV (13:30)
[2017-06-18] MEDS ORDERED: FENTAnyl 50 MCG/ML VIAL IV ×3 (13:30)
[2017-06-18] MEDS ORDERED: ONDANSETRON 4 MG INJ IV (13:30)
[2017-06-18] MEDS ORDERED: MEPERIDINE 25 MG INJ IV (13:30)
[2017-06-18] MEDS ORDERED: LABETALOL HCL 20MG INJ IV (13:30)
[2017-06-18] MEDS ORDERED: HYDROmorphONE (0.2 MG/ML) 10ML SYG IV ×3 (13:30)
[2017-06-18] MEDS ORDERED: EPHEDrine SULFATE 50 MG/5 ML SYG IV (13:30)
[2017-06-18] MEDS: FENTAnyl 50 MCG/ML VIAL IV (13:58)
[2017-06-18] MEDS: VANCOMYCIN 1.25 GM in SOD CHLORIDE 0.9% 250 ML IVPB (20:46)
[2017-06-19] MEDS: PIPER-TAZO 2.25 GM (PMX) 50 ML IVPB ×4 (00:42→17:12)
[2017-06-19] MEDS: METOPROLOL 50 MG TAB PO ×4 (00:42→17:13)
[2017-06-19] MEDS: PANTOPRAZOLE 40 MG INJ IV (05:11)
[2017-06-19] MEDS: FUROSEMIDE 40 MG INJ IV ×3 (05:12→22:04)
[2017-06-19] MEDS: MAGNESIUM SULFATE 2 GM/50 ML 50 ML IVPB (08:44)
[2017-06-19] MEDS: DOCUSATE SODIUM 100 MG CAP PO ×2 (08:45→20:19)
[2017-06-19] MEDS: CHOLECALCIFEROL 2,000 UNIT CAP PO (08:45)
[2017-06-19] MEDS: LUBIPROSTONE 24 MCG CAP PO ×2 (08:45→20:19)
[2017-06-19] MEDS: POTASSIUM CHLORIDE (SR) 20 MEQ TAB PO ×2 (08:45→20:21)
[2017-06-19] MEDS: ENOXAPARIN 30 MG/0.3 ML SYG SC (08:56)
[2017-06-19 12:26] LABS: ADD MAN DIFF? NO
[2017-06-19 12:38] LABS: BASOPHILS % 0.1 % (0.0-2.0); EOSINOPHILS % 0.3 % (0.0-7.0); HEMATOCRIT 29.5 % (37.0-47.0); HEMOGLOBIN 9.6 g/dl (12.0-16.0); LYMPHOCYTES # 0.6 10^3/ul (0.8-2.9); LYMPHOCYTES % 6.3 % (15.0-51.0); MEAN CORPUSCULAR HEMOGLOBIN 31.6 pg (29.0-33.0); MEAN CORPUSCULAR HGB CONC 32.5 g/dl (32.0-37.0); MEAN PLATELET VOLUME 10.6 fl (7.4-10.4); MONOCYTE # 0.4 10^3/ul (0.3-0.9); MONOCYTES % 3.7 % (0.0-11.0); NEUTROPHIL # 8.8 10^3/ul (1.6-7.5); NUCLEATED RED BLOOD CELLS # 0.1 10^3/ul (0.0-0.0); NUCLEATED RED BLOOD CELLS% 0.5 /100WBC (0.0-0.0); PLATELET COUNT 327 10^3/UL (140-415); RED BLOOD COUNT 3.04 10^6/ul (4.20-5.40)
[2017-06-19 12:38] LABS: WHITE BLOOD COUNT 9.9 10^3/ul (4.8-10.8)
[2017-06-19 12:54] LABS: BLOOD UREA NITROGEN 32 mg/dl (7-20)
[2017-06-19 12:54] LABS: CREATININE 1.33 mg/dl (0.44-1.00)
[2017-06-19 15:44] LABS: VANCOMYCIN,TROUGH 20.3 ug/ml (10.0-20.0)
[2017-06-19] MEDS: VANCOMYCIN 1 GM 250 ML IVPB (20:21)
[2017-06-20] MEDS: PIPER-TAZO 2.25 GM (PMX) 50 ML IVPB ×5 (00:18→23:45)
[2017-06-20] MEDS: METOPROLOL 50 MG TAB PO ×5 (00:21→23:43)
[2017-06-20] MEDS: FUROSEMIDE 40 MG INJ IV ×3 (05:52→22:40)
[2017-06-20] MEDS: PANTOPRAZOLE 40 MG INJ IV (05:53)
[2017-06-20 07:15] LABS: ADD MAN DIFF? NO
[2017-06-20 07:19] LABS: WHITE BLOOD COUNT 8.6 10^3/ul (4.8-10.8)
[2017-06-20 07:19] LABS: EOSINOPHILS # 0.1 10^3/ul (0.0-0.5); EOSINOPHILS % 0.6 % (0.0-7.0); HEMATOCRIT 26.3 % (37.0-47.0); HEMOGLOBIN 8.5 g/dl (12.0-16.0); LYMPHOCYTES # 0.7 10^3/ul (0.8-2.9); LYMPHOCYTES % 8.1 % (15.0-51.0); MEAN CORPUSCULAR HEMOGLOBIN 31.4 pg (29.0-33.0); MEAN CORPUSCULAR HGB CONC 32.3 g/dl (32.0-37.0); MEAN PLATELET VOLUME 10.8 fl (7.4-10.4); MONOCYTE # 0.4 10^3/ul (0.3-0.9); MONOCYTES % 4.8 % (0.0-11.0); NEUTROPHIL # 7.4 10^3/ul (1.6-7.5); PLATELET COUNT 257 10^3/UL (140-415); RED BLOOD COUNT 2.71 10^6/ul (4.20-5.40); RED CELL DISTRIBUTION WIDTH 19.9 % (11.5-14.5)
[2017-06-20] MEDS: DOCUSATE SODIUM 100 MG CAP PO ×2 (08:15→20:20)
[2017-06-20] MEDS: LUBIPROSTONE 24 MCG CAP PO ×2 (08:15→20:20)
[2017-06-20] MEDS: POTASSIUM CHLORIDE (SR) 20 MEQ TAB PO ×2 (08:16→20:18)
[2017-06-20] MEDS: CHOLECALCIFEROL 2,000 UNIT CAP PO (08:16)
[2017-06-20] MEDS: ENOXAPARIN 30 MG/0.3 ML SYG SC (08:18)
[2017-06-20] MEDS: VANCOMYCIN 1 GM 250 ML IVPB (20:14)
[2017-06-21] MEDS: PANTOPRAZOLE 40 MG INJ IV (05:40)
[2017-06-21] MEDS: FUROSEMIDE 40 MG INJ IV (05:41)
[2017-06-21] MEDS: METOPROLOL 50 MG TAB PO ×2 (05:41→20:11)
[2017-06-21 06:10] LABS: ADD MAN DIFF? NO
[2017-06-21 06:13] LABS: WHITE BLOOD COUNT 7.2 10^3/ul (4.8-10.8)
[2017-06-21 06:13] LABS: BASOPHILS % 0.1 % (0.0-2.0); EOSINOPHILS % 0.4 % (0.0-7.0); HEMOGLOBIN 8.8 g/dl (12.0-16.0); LYMPHOCYTES # 0.9 10^3/ul (0.8-2.9); LYMPHOCYTES % 12.7 % (15.0-51.0); MEAN CORPUSCULAR HEMOGLOBIN 31.5 pg (29.0-33.0); MEAN CORPUSCULAR HGB CONC 32.6 g/dl (32.0-37.0); MEAN CORPUSCULAR VOLUME 96.8 fl (82.0-101.0); MEAN PLATELET VOLUME 10.9 fl (7.4-10.4); MONOCYTE # 0.3 10^3/ul (0.3-0.9); MONOCYTES % 3.9 % (0.0-11.0); NEUTROPHILS % 82.6 % (39.0-77.0); PLATELET COUNT 224 10^3/UL (140-415); RED BLOOD COUNT 2.79 10^6/ul (4.20-5.40); RED CELL DISTRIBUTION WIDTH 19.5 % (11.5-14.5)
[2017-06-21] MEDS: PIPER-TAZO 2.25 GM (PMX) 50 ML IVPB (06:22)
[2017-06-21 06:43] LABS: ALANINE AMINOTRANSFERASE 59 IU/L (13-69); ALBUMIN 2.3 g/dl (3.3-4.9); ALBUMIN/GLOBULIN RATIO 0.63; ALKALINE PHOSPHATASE 446 IU/L (42-121); ASPARTATE AMINO TRANSFERASE 48 IU/L (15-46); BILIRUBIN,INDIRECT 0.5 mg/dl (0-1.1); BILIRUBIN,TOTAL 0.5 mg/dl (0.2-1.3); BLOOD UREA NITROGEN 27 mg/dl (7-20); CALCIUM 7.4 mg/dl (8.4-10.2); CHLORIDE 100 mmol/L (97-110); CREATININE 1.36 mg/dl (0.44-1.00); GLUCOSE 99 mg/dl (70-220); MAGNESIUM 1.5 mg/dl (1.7-2.5); PHOSPHORUS 3.4 mg/dl (2.5-4.9); SODIUM 147 mmol/L (135-144); TOTAL PROTEIN 5.9 g/dl (6.1-8.1)
[2017-06-21 06:44] LABS: IRON 44 ug/dl (35-150)
[2017-06-21 06:52] LABS: ANION GAP 9 (8-16)
[2017-06-21 06:53] LABS: % IRON SATURATION 22 % SAT (22-52); TOTAL IRON BINDING CAPACITY 200 ug/dl (241-421)
[2017-06-21 06:54] LABS: CARBON DIOXIDE 41 mmol/L (21-31); POTASSIUM 2.6 mmol/L (3.5-5.1)
[2017-06-21] MEDS ORDERED: POTASSIUM CHLORIDE (SR) 20 MEQ TAB PO ×3 (06:57→21:00)
[2017-06-21] MEDS ORDERED: POTASSIUM CHLORIDE 100 ML IVPB (08:30)
[2017-06-21] MEDS: DOCUSATE SODIUM 100 MG CAP PO ×3 (09:00→20:13)
[2017-06-21] MEDS: POTASSIUM CHLORIDE (SR) 20 MEQ TAB PO ×2 (09:09→12:49)
[2017-06-21] MEDS: LUBIPROSTONE 24 MCG CAP PO ×2 (09:09→20:12)
[2017-06-21] MEDS: POTASSIUM CHLORIDE 100 ML IVPB (09:09)
[2017-06-21] MEDS: CHOLECALCIFEROL 2,000 UNIT CAP PO (09:09)
[2017-06-21] MEDS: ENOXAPARIN 30 MG/0.3 ML SYG SC (09:11)
[2017-06-21] MEDS: CEFTRIAXONE 2 GM/50 ML (PMX) 50 ML IVPB (12:49)
[2017-06-21] MEDS: MAGNESIUM SULFATE 2 GM/50 ML 50 ML IVPB (13:43)
[2017-06-22] MEDS: PANTOPRAZOLE 40 MG INJ IV (05:53)
[2017-06-22 06:10] LABS: ADD MAN DIFF? NO
[2017-06-22 06:13] LABS: WHITE BLOOD COUNT 6.8 10^3/ul (4.8-10.8)
[2017-06-22 06:13] LABS: BASOPHILS % 0.1 % (0.0-2.0); EOSINOPHILS # 0.1 10^3/ul (0.0-0.5); EOSINOPHILS % 0.7 % (0.0-7.0); HEMATOCRIT 26.8 % (37.0-47.0); HEMOGLOBIN 8.5 g/dl (12.0-16.0); LYMPHOCYTES # 1.1 10^3/ul (0.8-2.9); LYMPHOCYTES % 16.6 % (15.0-51.0); MEAN CORPUSCULAR HEMOGLOBIN 31.3 pg (29.0-33.0); MEAN CORPUSCULAR HGB CONC 31.7 g/dl (32.0-37.0); MEAN CORPUSCULAR VOLUME 98.5 fl (82.0-101.0); MEAN PLATELET VOLUME 10.9 fl (7.4-10.4); MONOCYTE # 0.4 10^3/ul (0.3-0.9); MONOCYTES % 5.1 % (0.0-11.0); NEUTROPHIL # 5.3 10^3/ul (1.6-7.5); NEUTROPHILS % 77.2 % (39.0-77.0); PLATELET COUNT 172 10^3/UL (140-415); RED BLOOD COUNT 2.72 10^6/ul (4.20-5.40); RED CELL DISTRIBUTION WIDTH 19.1 % (11.5-14.5)
[2017-06-22] MEDS: MAGNESIUM SULFATE 2 GM/50 ML 50 ML IVPB (08:45)
[2017-06-22] MEDS: ENOXAPARIN 30 MG/0.3 ML SYG SC (08:48)
[2017-06-22] MEDS: CHOLECALCIFEROL 2,000 UNIT CAP PO (08:49)
[2017-06-22] MEDS: METOPROLOL 50 MG TAB PO ×2 (08:50→20:28)
[2017-06-22] MEDS: DOCUSATE SODIUM 100 MG CAP PO (08:51)
[2017-06-22] MEDS: LUBIPROSTONE 24 MCG CAP PO (08:56)
[2017-06-22] MEDS: CEFTRIAXONE 2 GM/50 ML (PMX) 50 ML IVPB (12:44)
[2017-06-22 15:24] LABS: ANION GAP 8 (8-16)
[2017-06-22 15:25] LABS: ALANINE AMINOTRANSFERASE 54 IU/L (13-69); ALBUMIN 2.3 g/dl (3.3-4.9); ALKALINE PHOSPHATASE 386 IU/L (42-121); ASPARTATE AMINO TRANSFERASE 44 IU/L (15-46); BILIRUBIN,INDIRECT 0.2 mg/dl (0-1.1); BILIRUBIN,TOTAL 0.2 mg/dl (0.2-1.3); BLOOD UREA NITROGEN 22 mg/dl (7-20); CALCIUM 7.5 mg/dl (8.4-10.2); CARBON DIOXIDE 36 mmol/L (21-31); CHLORIDE 101 mmol/L (97-110); CREATININE 1.06 mg/dl (0.44-1.00); GLUCOSE 125 mg/dl (70-220); POTASSIUM 3.1 mmol/L (3.5-5.1); SODIUM 142 mmol/L (135-144); TOTAL PROTEIN 6.1 g/dl (6.1-8.1)
[2017-06-22] MEDS: POTASSIUM CHLORIDE 20 MEQ POWDER FOR ORAL SOLN PO (17:52)
[2017-06-22] MEDS: POTASSIUM CHLORIDE 100 ML IVPB (17:52)
[2017-06-23 06:17] LABS: ADD MAN DIFF? NO
[2017-06-23 06:20] LABS: BASOPHILS % 0.3 % (0.0-2.0); EOSINOPHILS # 0.1 10^3/ul (0.0-0.5); EOSINOPHILS % 1.1 % (0.0-7.0); HEMATOCRIT 28.7 % (37.0-47.0); HEMOGLOBIN 9.2 g/dl (12.0-16.0); LYMPHOCYTES # 1.3 10^3/ul (0.8-2.9); LYMPHOCYTES % 18.2 % (15.0-51.0); MEAN CORPUSCULAR HEMOGLOBIN 31.6 pg (29.0-33.0); MEAN CORPUSCULAR HGB CONC 32.1 g/dl (32.0-37.0); MEAN CORPUSCULAR VOLUME 98.6 fl (82.0-101.0); MEAN PLATELET VOLUME 11.2 fl (7.4-10.4); MONOCYTE # 0.4 10^3/ul (0.3-0.9); MONOCYTES % 5.7 % (0.0-11.0); NEUTROPHIL # 5.2 10^3/ul (1.6-7.5); NEUTROPHILS % 74.1 % (39.0-77.0); PLATELET COUNT 166 10^3/UL (140-415); RED BLOOD COUNT 2.91 10^6/ul (4.20-5.40); RED CELL DISTRIBUTION WIDTH 18.8 % (11.5-14.5)
[2017-06-23 06:50] LABS: ALANINE AMINOTRANSFERASE 49 IU/L (13-69); ALBUMIN 2.5 g/dl (3.3-4.9); ALBUMIN/GLOBULIN RATIO 0.64; ALKALINE PHOSPHATASE 392 IU/L (42-121); ANION GAP 11 (8-16); ASPARTATE AMINO TRANSFERASE 45 IU/L (15-46); BILIRUBIN,INDIRECT 0.3 mg/dl (0-1.1); BILIRUBIN,TOTAL 0.3 mg/dl (0.2-1.3); BLOOD UREA NITROGEN 22 mg/dl (7-20); CALCIUM 7.6 mg/dl (8.4-10.2); CARBON DIOXIDE 32 mmol/L (21-31); CHLORIDE 100 mmol/L (97-110); CREATININE 1.07 mg/dl (0.44-1.00); GLUCOSE 116 mg/dl (70-220); POTASSIUM 3.8 mmol/L (3.5-5.1); SODIUM 139 mmol/L (135-144); TOTAL PROTEIN 6.4 g/dl (6.1-8.1)
[2017-06-23] MEDS: METOPROLOL 50 MG TAB PO ×2 (08:58→21:25)
[2017-06-23] MEDS: CHOLECALCIFEROL 2,000 UNIT CAP PO (08:58)
[2017-06-23] MEDS: ENOXAPARIN 30 MG/0.3 ML SYG SC (09:02)
[2017-06-23] MEDS: MAGNESIUM SULFATE 2 GM/50 ML 50 ML IVPB (09:25)
[2017-06-23] MEDS: FUROSEMIDE 20 MG INJ IV (11:51)
[2017-06-23] MEDS: CEFTRIAXONE 2 GM/50 ML (PMX) 50 ML IVPB (11:52)
[2017-06-23] MEDS ORDERED: VANCOMYCIN IV PER PHARMACY XX (13:00)
[2017-06-23] MEDS: MEROPENEM 500MG/50 ML (PMX) 50 ML IVPB ×2 (14:33→21:28)
[2017-06-23] MEDS: VANCOMYCIN 1.5 GM in SOD CHLORIDE 0.9% 250 ML IVPB (16:08)
[2017-06-23] MEDS: ACETAMINOPHEN 500 MG TAB PO (21:25)
[2017-06-24] MEDS: MEROPENEM 500MG/50 ML (PMX) 50 ML IVPB ×3 (05:19→21:35)
[2017-06-24 06:32] LABS: ADD MAN DIFF? NO
[2017-06-24 06:40] LABS: BASOPHILS % 0.3 % (0.0-2.0); EOSINOPHILS # 0.1 10^3/ul (0.0-0.5); EOSINOPHILS % 1.6 % (0.0-7.0); HEMATOCRIT 27.9 % (37.0-47.0); HEMOGLOBIN 8.9 g/dl (12.0-16.0); LYMPHOCYTES # 1.7 10^3/ul (0.8-2.9); LYMPHOCYTES % 21.7 % (15.0-51.0); MEAN CORPUSCULAR HEMOGLOBIN 31.4 pg (29.0-33.0); MEAN CORPUSCULAR HGB CONC 31.9 g/dl (32.0-37.0); MEAN CORPUSCULAR VOLUME 98.6 fl (82.0-101.0); MEAN PLATELET VOLUME 11.4 fl (7.4-10.4); MONOCYTE # 0.4 10^3/ul (0.3-0.9); NEUTROPHIL # 5.4 10^3/ul (1.6-7.5); NEUTROPHILS % 70.7 % (39.0-77.0); PLATELET COUNT 157 10^3/UL (140-415); RED BLOOD COUNT 2.83 10^6/ul (4.20-5.40); RED CELL DISTRIBUTION WIDTH 18.6 % (11.5-14.5)
[2017-06-24 06:40] LABS: WHITE BLOOD COUNT 7.6 10^3/ul (4.8-10.8)
[2017-06-24 07:02] LABS: ALANINE AMINOTRANSFERASE 47 IU/L (13-69); ALBUMIN 2.2 g/dl (3.3-4.9); ALBUMIN/GLOBULIN RATIO 0.57; ALKALINE PHOSPHATASE 358 IU/L (42-121); ANION GAP 9 (8-16); ASPARTATE AMINO TRANSFERASE 38 IU/L (15-46); BILIRUBIN,INDIRECT 0.3 mg/dl (0-1.1); BILIRUBIN,TOTAL 0.3 mg/dl (0.2-1.3); BLOOD UREA NITROGEN 23 mg/dl (7-20); CALCIUM 7.5 mg/dl (8.4-10.2); CARBON DIOXIDE 34 mmol/L (21-31); CHLORIDE 102 mmol/L (97-110); CREATININE 1.08 mg/dl (0.44-1.00); GLUCOSE 119 mg/dl (70-220); POTASSIUM 3.6 mmol/L (3.5-5.1); SODIUM 141 mmol/L (135-144)
[2017-06-24] MEDS ORDERED: FUROSEMIDE 20 MG TAB PO (09:00)
[2017-06-24] MEDS: CHOLECALCIFEROL 2,000 UNIT CAP PO (09:50)
[2017-06-24] MEDS: METOPROLOL 50 MG TAB PO ×2 (09:51→21:35)
[2017-06-24] MEDS: POTASSIUM CHLORIDE 20 MEQ POWDER FOR ORAL SOLN PO (09:51)
[2017-06-24] MEDS: ENOXAPARIN 30 MG/0.3 ML SYG SC (10:00)
[2017-06-24] MEDS: FUROSEMIDE 20 MG INJ IV ×2 (10:01→17:59)
[2017-06-24 10:40] LABS: PHOSPHORUS 3.2 mg/dl (2.5-4.9)
[2017-06-24 10:40] LABS: MAGNESIUM 2.5 mg/dl (1.7-2.5)
[2017-06-24] MEDS: ACETAMINOPHEN 500 MG TAB PO (14:44)
[2017-06-24] MEDS: VANCOMYCIN 1.25 GM in SOD CHLORIDE 0.9% 250 ML IVPB (16:38)
[2017-06-25] MEDS: MEROPENEM 500MG/50 ML (PMX) 50 ML IVPB ×3 (05:05→21:40)
[2017-06-25] MEDS: FUROSEMIDE 20 MG INJ IV ×3 (05:05→21:02)
[2017-06-25 06:30] LABS: ADD MAN DIFF? NO
[2017-06-25 06:31] LABS: WHITE BLOOD COUNT 7.7 10^3/ul (4.8-10.8)
[2017-06-25 06:31] LABS: BASOPHILS % 0.4 % (0.0-2.0); EOSINOPHILS # 0.1 10^3/ul (0.0-0.5); EOSINOPHILS % 1.2 % (0.0-7.0); HEMATOCRIT 29.4 % (37.0-47.0); HEMOGLOBIN 9.2 g/dl (12.0-16.0); LYMPHOCYTES # 1.9 10^3/ul (0.8-2.9); LYMPHOCYTES % 24.3 % (15.0-51.0); MEAN CORPUSCULAR HEMOGLOBIN 31.2 pg (29.0-33.0); MEAN CORPUSCULAR HGB CONC 31.3 g/dl (32.0-37.0); MEAN CORPUSCULAR VOLUME 99.7 fl (82.0-101.0); MEAN PLATELET VOLUME 11.3 fl (7.4-10.4); MONOCYTE # 0.4 10^3/ul (0.3-0.9); MONOCYTES % 5.7 % (0.0-11.0); NEUTROPHIL # 5.2 10^3/ul (1.6-7.5); NEUTROPHILS % 67.4 % (39.0-77.0); PLATELET COUNT 165 10^3/UL (140-415); RED BLOOD COUNT 2.95 10^6/ul (4.20-5.40); RED CELL DISTRIBUTION WIDTH 18.5 % (11.5-14.5)
[2017-06-25 07:42] LABS: ALANINE AMINOTRANSFERASE 51 IU/L (13-69); ALBUMIN 2.3 g/dl (3.3-4.9); ALKALINE PHOSPHATASE 399 IU/L (42-121); ANION GAP 13 (8-16); ASPARTATE AMINO TRANSFERASE 61 IU/L (15-46); BILIRUBIN,INDIRECT 0.3 mg/dl (0-1.1); BILIRUBIN,TOTAL 0.3 mg/dl (0.2-1.3); BLOOD UREA NITROGEN 26 mg/dl (7-20); CALCIUM 7.4 mg/dl (8.4-10.2); CARBON DIOXIDE 29 mmol/L (21-31); CHLORIDE 100 mmol/L (97-110); CREATININE 0.98 mg/dl (0.44-1.00); GLUCOSE 100 mg/dl (70-220); POTASSIUM 4.2 mmol/L (3.5-5.1); SODIUM 138 mmol/L (135-144); TOTAL PROTEIN 6.1 g/dl (6.1-8.1)
[2017-06-25] MEDS: CHOLECALCIFEROL 2,000 UNIT CAP PO (09:41)
[2017-06-25] MEDS: METOPROLOL 50 MG TAB PO ×2 (09:42→21:02)
[2017-06-25] MEDS: ENOXAPARIN 30 MG/0.3 ML SYG SC (09:43)
[2017-06-25] MEDS: VANCOMYCIN 1.25 GM in SOD CHLORIDE 0.9% 250 ML IVPB (16:07)
[2017-06-26] MEDS: FUROSEMIDE 20 MG INJ IV (04:29)
[2017-06-26] MEDS: MEROPENEM 500MG/50 ML (PMX) 50 ML IVPB ×3 (05:38→21:28)
[2017-06-26] MEDS: CHOLECALCIFEROL 2,000 UNIT CAP PO (09:15)
[2017-06-26] MEDS: METOPROLOL 50 MG TAB PO ×2 (09:15→21:29)
[2017-06-26] MEDS: ENOXAPARIN 30 MG/0.3 ML SYG SC (09:17)
[2017-06-26 11:02] LABS: ADD MAN DIFF? NO
[2017-06-26 11:06] LABS: WHITE BLOOD COUNT 8.6 10^3/ul (4.8-10.8)
[2017-06-26 11:06] LABS: BASOPHILS % 0.2 % (0.0-2.0); EOSINOPHILS # 0.2 10^3/ul (0.0-0.5); HEMATOCRIT 27.6 % (37.0-47.0); HEMOGLOBIN 8.7 g/dl (12.0-16.0); LYMPHOCYTES # 1.8 10^3/ul (0.8-2.9); LYMPHOCYTES % 21.3 % (15.0-51.0); MEAN CORPUSCULAR HEMOGLOBIN 31.2 pg (29.0-33.0); MEAN CORPUSCULAR HGB CONC 31.5 g/dl (32.0-37.0); MEAN CORPUSCULAR VOLUME 98.9 fl (82.0-101.0); MEAN PLATELET VOLUME 10.7 fl (7.4-10.4); MONOCYTE # 0.6 10^3/ul (0.3-0.9); MONOCYTES % 6.5 % (0.0-11.0); NEUTROPHILS % 69.1 % (39.0-77.0); PLATELET COUNT 214 10^3/UL (140-415); RED BLOOD COUNT 2.79 10^6/ul (4.20-5.40); RED CELL DISTRIBUTION WIDTH 18.2 % (11.5-14.5)
[2017-06-26 11:35] LABS: ALANINE AMINOTRANSFERASE 49 IU/L (13-69); ALBUMIN 2.3 g/dl (3.3-4.9); ALBUMIN/GLOBULIN RATIO 0.62; ALKALINE PHOSPHATASE 410 IU/L (42-121); ANION GAP 10 (8-16); ASPARTATE AMINO TRANSFERASE 55 IU/L (15-46); BILIRUBIN,INDIRECT 0.2 mg/dl (0-1.1); BILIRUBIN,TOTAL 0.2 mg/dl (0.2-1.3); BLOOD UREA NITROGEN 27 mg/dl (7-20); CALCIUM 7.4 mg/dl (8.4-10.2); CARBON DIOXIDE 33 mmol/L (21-31); CHLORIDE 99 mmol/L (97-110); CREATININE 1.01 mg/dl (0.44-1.00); GLUCOSE 135 mg/dl (70-220); POTASSIUM 3.2 mmol/L (3.5-5.1); SODIUM 139 mmol/L (135-144)
[2017-06-26] MEDS ORDERED: POTASSIUM CHLORIDE (SR) 20 MEQ TAB PO (13:00)
[2017-06-26] MEDS: POTASSIUM CHLORIDE 20 MEQ POWDER FOR ORAL SOLN PO (13:25)
[2017-06-26] MEDS: POTASSIUM CHLORIDE 100 ML IVPB (14:01)
[2017-06-26 15:42] LABS: VANCOMYCIN,TROUGH 14.6 ug/ml (10.0-20.0)
[2017-06-26] MEDS: VANCOMYCIN 1.25 GM in SOD CHLORIDE 0.9% 250 ML IVPB (16:45)
[2017-06-26] MEDS: FUROSEMIDE 40 MG INJ IV (18:14)
[2017-06-27 04:29] LABS: ADD MAN DIFF? NO
[2017-06-27 04:30] LABS: BASOPHILS % 0.4 % (0.0-2.0); EOSINOPHILS # 0.2 10^3/ul (0.0-0.5); EOSINOPHILS % 2.1 % (0.0-7.0); HEMATOCRIT 27.8 % (37.0-47.0); HEMOGLOBIN 8.6 g/dl (12.0-16.0); LYMPHOCYTES # 2.8 10^3/ul (0.8-2.9); LYMPHOCYTES % 27.9 % (15.0-51.0); MEAN CORPUSCULAR HEMOGLOBIN 30.6 pg (29.0-33.0); MEAN CORPUSCULAR HGB CONC 30.9 g/dl (32.0-37.0); MEAN CORPUSCULAR VOLUME 98.9 fl (82.0-101.0); MONOCYTE # 0.7 10^3/ul (0.3-0.9); MONOCYTES % 6.5 % (0.0-11.0); NEUTROPHIL # 6.2 10^3/ul (1.6-7.5); NEUTROPHILS % 62.1 % (39.0-77.0); PLATELET COUNT 237 10^3/UL (140-415); RED BLOOD COUNT 2.81 10^6/ul (4.20-5.40); RED CELL DISTRIBUTION WIDTH 18.1 % (11.5-14.5)
[2017-06-27 04:53] LABS: POTASSIUM 4.2 mmol/L (3.5-5.1)
[2017-06-27 04:53] LABS: MAGNESIUM 1.8 mg/dl (1.7-2.5)
[2017-06-27 04:55] LABS: C-REACTIVE PROTEIN 5.9 mg/dl (0.0-0.9)
[2017-06-27 04:55] LABS: ALANINE AMINOTRANSFERASE 61 IU/L (13-69); ALBUMIN 2.3 g/dl (3.3-4.9); ALBUMIN/GLOBULIN RATIO 0.62; ALKALINE PHOSPHATASE 426 IU/L (42-121); ANION GAP 10 (8-16); ASPARTATE AMINO TRANSFERASE 58 IU/L (15-46); BILIRUBIN,INDIRECT 0.3 mg/dl (0-1.1); BILIRUBIN,TOTAL 0.3 mg/dl (0.2-1.3); BLOOD UREA NITROGEN 28 mg/dl (7-20); CALCIUM 7.6 mg/dl (8.4-10.2); CARBON DIOXIDE 33 mmol/L (21-31); CHLORIDE 101 mmol/L (97-110); CREATININE 1.03 mg/dl (0.44-1.00); GLUCOSE 94 mg/dl (70-220); POTASSIUM 4.2 mmol/L (3.5-5.1); SODIUM 140 mmol/L (135-144)
[2017-06-27] MEDS: MEROPENEM 500MG/50 ML (PMX) 50 ML IVPB ×3 (05:28→21:59)
[2017-06-27] MEDS: FUROSEMIDE 40 MG INJ IV ×3 (05:29→21:58)
[2017-06-27 06:01] LABS: ERYTHROCYTE SEDIMENTATION RATE 95 mm/Hr (0-30)
[2017-06-27] MEDS: METOPROLOL 50 MG TAB PO ×2 (08:52→20:22)
[2017-06-27] MEDS: CHOLECALCIFEROL 2,000 UNIT CAP PO (08:52)
[2017-06-27] MEDS: ENOXAPARIN 30 MG/0.3 ML SYG SC (08:53)
[2017-06-27] MEDS ORDERED: POTASSIUM CHLORIDE 100 ML IVPB (15:00)
[2017-06-27] MEDS ORDERED: MAGNESIUM SULFATE 2 GM/50 ML 50 ML IVPB (16:00)
[2017-06-27] MEDS: KETOCONAZOLE 2% 15 GM CR TOP ×2 (16:50→21:59)
[2017-06-27] MEDS: HYDROCORTISONE 1% 28 GM CR TOP ×2 (16:50→21:58)
[2017-06-27] MEDS: MAGNESIUM SULFATE 2 GM/50 ML 50 ML IVPB (16:51)
[2017-06-27] MEDS: POTASSIUM PHOSPHATE 40 MEQ in SOD CHLORIDE 0.9% 250 ML IVPB (18:59)
[2017-06-27] MEDS: ACETAMINOPHEN 500 MG TAB PO (20:21)
[2017-06-28] MEDS: MEROPENEM 500MG/50 ML (PMX) 50 ML IVPB ×3 (05:37→22:14)
[2017-06-28] MEDS: FUROSEMIDE 40 MG INJ IV ×3 (05:37→22:15)
[2017-06-28 05:45] LABS: ADD MAN DIFF? NO
[2017-06-28 06:10] LABS: WHITE BLOOD COUNT 9.6 10^3/ul (4.8-10.8)
[2017-06-28 06:10] LABS: BASOPHIL # 0.1 10^3/ul (0.0-0.1); BASOPHILS % 0.5 % (0.0-2.0); EOSINOPHILS # 0.3 10^3/ul (0.0-0.5); EOSINOPHILS % 3.4 % (0.0-7.0); HEMATOCRIT 27.3 % (37.0-47.0); HEMOGLOBIN 8.6 g/dl (12.0-16.0); LYMPHOCYTES # 2.4 10^3/ul (0.8-2.9); LYMPHOCYTES % 25.4 % (15.0-51.0); MEAN CORPUSCULAR HEMOGLOBIN 31.2 pg (29.0-33.0); MEAN CORPUSCULAR HGB CONC 31.5 g/dl (32.0-37.0); MEAN CORPUSCULAR VOLUME 98.9 fl (82.0-101.0); MEAN PLATELET VOLUME 10.2 fl (7.4-10.4); MONOCYTE # 0.7 10^3/ul (0.3-0.9); MONOCYTES % 6.8 % (0.0-11.0); NEUTROPHILS % 62.7 % (39.0-77.0); PLATELET COUNT 268 10^3/UL (140-415); RED BLOOD COUNT 2.76 10^6/ul (4.20-5.40); RED CELL DISTRIBUTION WIDTH 18.3 % (11.5-14.5)
[2017-06-28 06:41] LABS: ALANINE AMINOTRANSFERASE 65 IU/L (13-69); ALBUMIN 2.1 g/dl (3.3-4.9); ALBUMIN/GLOBULIN RATIO 0.56; ALKALINE PHOSPHATASE 401 IU/L (42-121); ANION GAP 9 (8-16); ASPARTATE AMINO TRANSFERASE 73 IU/L (15-46); BILIRUBIN,INDIRECT 0.3 mg/dl (0-1.1); BILIRUBIN,TOTAL 0.3 mg/dl (0.2-1.3); BLOOD UREA NITROGEN 32 mg/dl (7-20); CALCIUM 7.6 mg/dl (8.4-10.2); CARBON DIOXIDE 34 mmol/L (21-31); CHLORIDE 103 mmol/L (97-110); CREATININE 0.89 mg/dl (0.44-1.00); GLUCOSE 93 mg/dl (70-220); POTASSIUM 4.7 mmol/L (3.5-5.1); SODIUM 141 mmol/L (135-144); TOTAL PROTEIN 5.8 g/dl (6.1-8.1)
[2017-06-28] MEDS: METOPROLOL 50 MG TAB PO ×2 (08:29→22:15)
[2017-06-28] MEDS: HYDROCORTISONE 1% 28 GM CR TOP ×2 (08:29→21:00)
[2017-06-28] MEDS: CHOLECALCIFEROL 2,000 UNIT CAP PO (08:29)
[2017-06-28] MEDS: KETOCONAZOLE 2% 15 GM CR TOP ×2 (08:30→21:00)
[2017-06-28] MEDS: ENOXAPARIN 30 MG/0.3 ML SYG SC (08:31)
[2017-06-28] MEDS: ACETAMINOPHEN 500 MG TAB PO (08:38)
[2017-06-28] MEDS: IOHEXOL 14.3 MG(I)/ML (ADULT) BTL PO (12:37)
[2017-06-28] MEDS: SOD CHLORIDE 0.9% 100 ML (18:23)
[2017-06-28] MEDS: IOHEXOL 300MG/ML 150 ML BTL (18:25)
[2017-06-29] MEDS: MEROPENEM 500MG/50 ML (PMX) 50 ML IVPB ×3 (05:28→22:00)
[2017-06-29] MEDS: FUROSEMIDE 40 MG INJ IV ×3 (06:03→22:02)
[2017-06-29 06:11] LABS: ADD MAN DIFF? NO
[2017-06-29 06:22] LABS: BASOPHILS % 0.3 % (0.0-2.0); EOSINOPHILS # 0.2 10^3/ul (0.0-0.5); HEMATOCRIT 29.5 % (37.0-47.0); HEMOGLOBIN 9.3 g/dl (12.0-16.0); LYMPHOCYTES # 2.6 10^3/ul (0.8-2.9); LYMPHOCYTES % 22.5 % (15.0-51.0); MEAN CORPUSCULAR HGB CONC 31.5 g/dl (32.0-37.0); MEAN CORPUSCULAR VOLUME 98.3 fl (82.0-101.0); MONOCYTE # 0.8 10^3/ul (0.3-0.9); MONOCYTES % 6.5 % (0.0-11.0); NEUTROPHILS % 67.8 % (39.0-77.0); PLATELET COUNT 305 10^3/UL (140-415)
[2017-06-29 06:22] LABS: WHITE BLOOD COUNT 11.7 10^3/ul (4.8-10.8)
[2017-06-29 06:50] LABS: ALANINE AMINOTRANSFERASE 68 IU/L (13-69); ALBUMIN 2.4 g/dl (3.3-4.9); ALBUMIN/GLOBULIN RATIO 0.63; ALKALINE PHOSPHATASE 463 IU/L (42-121); ANION GAP 8 (8-16); ASPARTATE AMINO TRANSFERASE 53 IU/L (15-46); BILIRUBIN,INDIRECT 0.3 mg/dl (0-1.1); BILIRUBIN,TOTAL 0.3 mg/dl (0.2-1.3); BLOOD UREA NITROGEN 31 mg/dl (7-20); CALCIUM 7.7 mg/dl (8.4-10.2); CARBON DIOXIDE 35 mmol/L (21-31); CHLORIDE 100 mmol/L (97-110); CREATININE 1.13 mg/dl (0.44-1.00); GLUCOSE 131 mg/dl (70-220); POTASSIUM 3.8 mmol/L (3.5-5.1); SODIUM 139 mmol/L (135-144); TOTAL PROTEIN 6.2 g/dl (6.1-8.1)
[2017-06-29] MEDS: HYDROCORTISONE 1% 28 GM CR TOP ×2 (09:00→22:00)
[2017-06-29] MEDS: KETOCONAZOLE 2% 15 GM CR TOP ×2 (09:00→22:00)
[2017-06-29] MEDS: CHOLECALCIFEROL 2,000 UNIT CAP PO (09:55)
[2017-06-29] MEDS: METOPROLOL 50 MG TAB PO ×2 (09:55→22:01)
[2017-06-29] MEDS: ENOXAPARIN 30 MG/0.3 ML SYG SC (09:56)
[2017-06-30 06:06] LABS: ADD MAN DIFF? NO
[2017-06-30 06:07] LABS: WHITE BLOOD COUNT 11.2 10^3/ul (4.8-10.8)
[2017-06-30 06:07] LABS: BASOPHILS % 0.4 % (0.0-2.0); EOSINOPHILS # 0.3 10^3/ul (0.0-0.5); EOSINOPHILS % 2.8 % (0.0-7.0); HEMATOCRIT 26.9 % (37.0-47.0); HEMOGLOBIN 8.5 g/dl (12.0-16.0); LYMPHOCYTES # 2.5 10^3/ul (0.8-2.9); LYMPHOCYTES % 22.3 % (15.0-51.0); MEAN CORPUSCULAR HEMOGLOBIN 30.9 pg (29.0-33.0); MEAN CORPUSCULAR HGB CONC 31.6 g/dl (32.0-37.0); MEAN CORPUSCULAR VOLUME 97.8 fl (82.0-101.0); MEAN PLATELET VOLUME 9.5 fl (7.4-10.4); MONOCYTE # 0.8 10^3/ul (0.3-0.9); MONOCYTES % 7.5 % (0.0-11.0); NEUTROPHIL # 7.3 10^3/ul (1.6-7.5); NEUTROPHILS % 65.6 % (39.0-77.0); PLATELET COUNT 293 10^3/UL (140-415); RED BLOOD COUNT 2.75 10^6/ul (4.20-5.40); RED CELL DISTRIBUTION WIDTH 17.7 % (11.5-14.5)
[2017-06-30 06:32] LABS: INR 1.12; PROTIME 14.6 Sec (11.9-14.9); PT RATIO 1.1
[2017-06-30 06:33] LABS: ANION GAP 8 (8-16); BLOOD UREA NITROGEN 32 mg/dl (7-20); CALCIUM 7.7 mg/dl (8.4-10.2); CARBON DIOXIDE 37 mmol/L (21-31); CHLORIDE 99 mmol/L (97-110); CREATININE 1.02 mg/dl (0.44-1.00); GLUCOSE 107 mg/dl (70-220); PARTIAL THROMBOPLASTIN TIME 34.4 Sec (25.0-35.0); POTASSIUM 3.5 mmol/L (3.5-5.1); SODIUM 140 mmol/L (135-144)
[2017-06-30] MEDS: MEROPENEM 500MG/50 ML (PMX) 50 ML IVPB ×3 (07:00→21:19)
[2017-06-30] MEDS: FUROSEMIDE 40 MG INJ IV ×3 (07:04→21:20)
[2017-06-30] MEDS: ENOXAPARIN 30 MG/0.3 ML SYG SC (07:47)
[2017-06-30] MEDS: LIDOCAINE 1% (MDV) 10 ML INJ (09:38)
[2017-06-30] MEDS: CHOLECALCIFEROL 2,000 UNIT CAP PO (10:37)
[2017-06-30] MEDS: KETOCONAZOLE 2% 15 GM CR TOP ×2 (10:37→21:20)
[2017-06-30] MEDS: HYDROCORTISONE 1% 28 GM CR TOP ×2 (10:37→21:20)
[2017-06-30] MEDS: METOPROLOL 50 MG TAB PO ×2 (10:38→21:21)
[2017-06-30 16:24] LABS: FLD RBC 5000 /uL; FLD WBC 1204 /cmm
[2017-06-30 17:04] LABS: FLD TYPE THORACENTHESIS
[2017-06-30 17:05] LABS: FLD CLARITY HAZY; FLD COLOR YELLOW
[2017-07-01] MEDS: FUROSEMIDE 40 MG INJ IV ×3 (06:10→22:08)
[2017-07-01] MEDS: MEROPENEM 500MG/50 ML (PMX) 50 ML IVPB (06:10)
[2017-07-01 07:15] LABS: ADD MAN DIFF? NO
[2017-07-01 07:22] LABS: WHITE BLOOD COUNT 11.9 10^3/ul (4.8-10.8)
[2017-07-01 07:22] LABS: BASOPHILS % 0.3 % (0.0-2.0); EOSINOPHILS # 0.3 10^3/ul (0.0-0.5); EOSINOPHILS % 2.5 % (0.0-7.0); HEMATOCRIT 27.6 % (37.0-47.0); HEMOGLOBIN 8.7 g/dl (12.0-16.0); LYMPHOCYTES # 2.7 10^3/ul (0.8-2.9); LYMPHOCYTES % 22.7 % (15.0-51.0); MEAN CORPUSCULAR HEMOGLOBIN 30.5 pg (29.0-33.0); MEAN CORPUSCULAR HGB CONC 31.5 g/dl (32.0-37.0); MEAN CORPUSCULAR VOLUME 96.8 fl (82.0-101.0); MEAN PLATELET VOLUME 9.9 fl (7.4-10.4); MONOCYTE # 0.7 10^3/ul (0.3-0.9); MONOCYTES % 6.2 % (0.0-11.0); NEUTROPHILS % 67.5 % (39.0-77.0); PLATELET COUNT 298 10^3/UL (140-415); RED BLOOD COUNT 2.85 10^6/ul (4.20-5.40); RED CELL DISTRIBUTION WIDTH 17.3 % (11.5-14.5)
[2017-07-01 07:51] LABS: C-REACTIVE PROTEIN 6.2 mg/dl (0.0-0.9)
[2017-07-01 08:32] LABS: ERYTHROCYTE SEDIMENTATION RATE 68 mm/Hr (0-30)
[2017-07-01] MEDS: METOPROLOL 50 MG TAB PO ×2 (09:00→20:30)
[2017-07-01] MEDS: CHOLECALCIFEROL 2,000 UNIT CAP PO (09:01)
[2017-07-01] MEDS: HYDROCORTISONE 1% 28 GM CR TOP ×2 (09:01→22:07)
[2017-07-01] MEDS: KETOCONAZOLE 2% 15 GM CR TOP (09:02)
[2017-07-01] MEDS: ENOXAPARIN 30 MG/0.3 ML SYG SC (09:05)
[2017-07-01] MEDS: ALBUMIN HUMAN 25% 100 ML IV ×2 (09:50→18:02)
[2017-07-01] MEDS: DIPHENHYDRAMINE 50 MG INJ IV ×2 (09:55→22:08)
[2017-07-01] MEDS: LORATADINE 10 MG TAB PO (14:32)
[2017-07-01] MEDS: CLINDAMYCIN 600 MG/D5W (PMX) 50 ML IVPB (22:08)
[2017-07-02] MEDS: ALBUMIN HUMAN 25% 100 ML IV (01:43)
[2017-07-02] MEDS: FUROSEMIDE 40 MG INJ IV ×3 (05:37→21:47)
[2017-07-02] MEDS: CLINDAMYCIN 600 MG/D5W (PMX) 50 ML IVPB ×3 (05:38→21:51)
[2017-07-02] MEDS: DIPHENHYDRAMINE 50 MG INJ IV (05:38)
[2017-07-02] MEDS: LORATADINE 10 MG TAB PO (09:10)
[2017-07-02] MEDS: HYDROCORTISONE 1% 28 GM CR TOP ×2 (09:11→21:26)
[2017-07-02] MEDS: CHOLECALCIFEROL 2,000 UNIT CAP PO (09:11)
[2017-07-02] MEDS: METOPROLOL 50 MG TAB PO ×2 (09:11→21:22)
[2017-07-02] MEDS: ENOXAPARIN 30 MG/0.3 ML SYG SC (09:14)
[2017-07-02] MEDS: SPIRONOLACTONE 25 MG TAB PO ×2 (11:21→18:02)
[2017-07-03 06:04] LABS: ADD MAN DIFF? NO
[2017-07-03] MEDS: SPIRONOLACTONE 25 MG TAB PO ×2 (06:21→17:09)
[2017-07-03] MEDS: CLINDAMYCIN 600 MG/D5W (PMX) 50 ML IVPB ×3 (06:21→21:26)
[2017-07-03 06:23] LABS: BASOPHILS % 0.3 % (0.0-2.0); EOSINOPHILS # 0.4 10^3/ul (0.0-0.5); EOSINOPHILS % 3.4 % (0.0-7.0); HEMATOCRIT 27.5 % (37.0-47.0); HEMOGLOBIN 8.8 g/dl (12.0-16.0); LYMPHOCYTES # 2.7 10^3/ul (0.8-2.9); LYMPHOCYTES % 22.8 % (15.0-51.0); MEAN CORPUSCULAR HEMOGLOBIN 31.5 pg (29.0-33.0); MEAN CORPUSCULAR VOLUME 98.6 fl (82.0-101.0); MEAN PLATELET VOLUME 9.8 fl (7.4-10.4); MONOCYTE # 0.7 10^3/ul (0.3-0.9); MONOCYTES % 6.3 % (0.0-11.0); NEUTROPHIL # 7.7 10^3/ul (1.6-7.5); NEUTROPHILS % 65.7 % (39.0-77.0); PLATELET COUNT 267 10^3/UL (140-415); RED BLOOD COUNT 2.79 10^6/ul (4.20-5.40); RED CELL DISTRIBUTION WIDTH 16.7 % (11.5-14.5)
[2017-07-03 06:23] LABS: WHITE BLOOD COUNT 11.7 10^3/ul (4.8-10.8)
[2017-07-03] MEDS: FUROSEMIDE 40 MG INJ IV ×3 (06:25→21:29)
[2017-07-03 07:00] LABS: ALANINE AMINOTRANSFERASE 58 IU/L (13-69); ALBUMIN 2.4 g/dl (3.3-4.9); ALBUMIN/GLOBULIN RATIO 0.82; ALKALINE PHOSPHATASE 280 IU/L (42-121); ASPARTATE AMINO TRANSFERASE 52 IU/L (15-46); BILIRUBIN,INDIRECT 0.4 mg/dl (0-1.1); BILIRUBIN,TOTAL 0.4 mg/dl (0.2-1.3); BLOOD UREA NITROGEN 29 mg/dl (7-20); CALCIUM 7.7 mg/dl (8.4-10.2); CHLORIDE 98 mmol/L (97-110); GLUCOSE 110 mg/dl (70-220); SODIUM 145 mmol/L (135-144); TOTAL PROTEIN 5.3 g/dl (6.1-8.1)
[2017-07-03 07:23] LABS: ANION GAP 10 (8-16); CARBON DIOXIDE 40 mmol/L (21-31)
[2017-07-03 07:57] LABS: POTASSIUM 2.8 mmol/L (3.5-5.1)
[2017-07-03] MEDS: POTASSIUM CHLORIDE 100 ML IVPB ×2 (09:16→11:17)
[2017-07-03] MEDS: CHOLECALCIFEROL 2,000 UNIT CAP PO (09:17)
[2017-07-03] MEDS: METOPROLOL 50 MG TAB PO ×2 (09:17→21:30)
[2017-07-03] MEDS: LORATADINE 10 MG TAB PO (09:17)
[2017-07-03] MEDS: ENOXAPARIN 30 MG/0.3 ML SYG SC (09:19)
[2017-07-03] MEDS: HYDROCORTISONE 1% 28 GM CR TOP ×2 (09:20→21:24)
[2017-07-04] MEDS: CLINDAMYCIN 600 MG/D5W (PMX) 50 ML IVPB ×3 (05:38→21:15)
[2017-07-04] MEDS: FUROSEMIDE 40 MG INJ IV ×3 (05:39→21:15)
[2017-07-04] MEDS: SPIRONOLACTONE 25 MG TAB PO ×2 (05:40→17:59)
[2017-07-04 05:49] LABS: ADD MAN DIFF? NO
[2017-07-04 05:54] LABS: WHITE BLOOD COUNT 10.9 10^3/ul (4.8-10.8)
[2017-07-04 05:54] LABS: BASOPHILS % 0.3 % (0.0-2.0); EOSINOPHILS # 0.4 10^3/ul (0.0-0.5); EOSINOPHILS % 3.8 % (0.0-7.0); HEMATOCRIT 27.6 % (37.0-47.0); HEMOGLOBIN 8.7 g/dl (12.0-16.0); LYMPHOCYTES # 2.8 10^3/ul (0.8-2.9); LYMPHOCYTES % 25.4 % (15.0-51.0); MEAN CORPUSCULAR HEMOGLOBIN 30.7 pg (29.0-33.0); MEAN CORPUSCULAR HGB CONC 31.5 g/dl (32.0-37.0); MEAN CORPUSCULAR VOLUME 97.5 fl (82.0-101.0); MONOCYTE # 0.7 10^3/ul (0.3-0.9); MONOCYTES % 6.3 % (0.0-11.0); NEUTROPHIL # 6.9 10^3/ul (1.6-7.5); PLATELET COUNT 270 10^3/UL (140-415); RED BLOOD COUNT 2.83 10^6/ul (4.20-5.40); RED CELL DISTRIBUTION WIDTH 16.9 % (11.5-14.5)
[2017-07-04] MEDS: LORATADINE 10 MG TAB PO (08:36)
[2017-07-04] MEDS: CHOLECALCIFEROL 2,000 UNIT CAP PO (08:36)
[2017-07-04] MEDS: METOPROLOL 50 MG TAB PO ×2 (08:36→21:15)
[2017-07-04] MEDS: ENOXAPARIN 30 MG/0.3 ML SYG SC (08:38)
[2017-07-04] MEDS: HYDROCORTISONE 1% 28 GM CR TOP ×2 (08:39→21:16)
[2017-07-04] MEDS: POTASSIUM CHLORIDE 100 ML IVPB (14:21)
[2017-07-04] MEDS: DIPHENHYDRAMINE 25 MG CAP PO ×2 (14:28→21:15)
[2017-07-04] MEDS: MAGNESIUM SULFATE 2 GM/50 ML 50 ML IVPB (17:36)
[2017-07-05] MEDS: DIPHENHYDRAMINE 25 MG CAP PO ×3 (05:19→22:04)
[2017-07-05] MEDS: CLINDAMYCIN 600 MG/D5W (PMX) 50 ML IVPB ×3 (05:19→22:04)
[2017-07-05] MEDS: SPIRONOLACTONE 25 MG TAB PO ×2 (05:19→18:33)
[2017-07-05] MEDS: FUROSEMIDE 40 MG INJ IV ×2 (05:20→18:34)
[2017-07-05 05:47] LABS: ADD MAN DIFF? NO
[2017-07-05 06:02] LABS: BASOPHIL # 0.1 10^3/ul (0.0-0.1); BASOPHILS % 0.4 % (0.0-2.0); EOSINOPHILS # 0.5 10^3/ul (0.0-0.5); EOSINOPHILS % 3.9 % (0.0-7.0); HEMATOCRIT 31.4 % (37.0-47.0); HEMOGLOBIN 9.9 g/dl (12.0-16.0); LYMPHOCYTES # 3.5 10^3/ul (0.8-2.9); LYMPHOCYTES % 28.8 % (15.0-51.0); MEAN CORPUSCULAR HEMOGLOBIN 30.4 pg (29.0-33.0); MEAN CORPUSCULAR HGB CONC 31.5 g/dl (32.0-37.0); MEAN CORPUSCULAR VOLUME 96.3 fl (82.0-101.0); MEAN PLATELET VOLUME 9.9 fl (7.4-10.4); MONOCYTE # 0.6 10^3/ul (0.3-0.9); MONOCYTES % 4.8 % (0.0-11.0); NEUTROPHIL # 7.2 10^3/ul (1.6-7.5); NEUTROPHILS % 60.3 % (39.0-77.0); PLATELET COUNT 281 10^3/UL (140-415); RED BLOOD COUNT 3.26 10^6/ul (4.20-5.40)
[2017-07-05 06:26] LABS: IRON 39 ug/dl (35-150)
[2017-07-05 06:30] LABS: ALANINE AMINOTRANSFERASE 60 IU/L (13-69); ALBUMIN 2.4 g/dl (3.3-4.9); ALBUMIN/GLOBULIN RATIO 0.75; ALKALINE PHOSPHATASE 291 IU/L (42-121); ASPARTATE AMINO TRANSFERASE 56 IU/L (15-46); BILIRUBIN,INDIRECT 0.3 mg/dl (0-1.1); BILIRUBIN,TOTAL 0.3 mg/dl (0.2-1.3); BLOOD UREA NITROGEN 30 mg/dl (7-20); CHLORIDE 98 mmol/L (97-110); CREATININE 1.09 mg/dl (0.44-1.00); GLUCOSE 106 mg/dl (70-220); MAGNESIUM 2.1 mg/dl (1.7-2.5); SODIUM 143 mmol/L (135-144); TOTAL PROTEIN 5.6 g/dl (6.1-8.1)
[2017-07-05 06:35] LABS: % IRON SATURATION 22 % SAT (22-52); TOTAL IRON BINDING CAPACITY 177 ug/dl (241-421)
[2017-07-05 06:47] LABS: ANION GAP 7 (8-16)
[2017-07-05 06:50] LABS: CARBON DIOXIDE 42 mmol/L (21-31)
[2017-07-05] MEDS: LORATADINE 10 MG TAB PO (09:42)
[2017-07-05] MEDS: CHOLECALCIFEROL 2,000 UNIT CAP PO (09:42)
[2017-07-05] MEDS: POTASSIUM CHLORIDE 100 ML IVPB (09:42)
[2017-07-05] MEDS: METOPROLOL 50 MG TAB PO ×2 (09:42→20:43)
[2017-07-05] MEDS: ENOXAPARIN 30 MG/0.3 ML SYG SC (09:46)
[2017-07-05] MEDS: HYDROCORTISONE 1% 28 GM CR TOP ×2 (09:47→20:44)
[2017-07-05] MEDS: SOD FERRIC GLUC COMPLX 125 MG in SOD CHLORIDE 0.9% 100 ML IVPB (16:27)
[2017-07-05] MEDS: ACETAZOLAMIDE 250 MG TAB PO ×2 (16:29→20:42)
[2017-07-06] MEDS: SPIRONOLACTONE 25 MG TAB PO ×2 (05:45→17:31)
[2017-07-06] MEDS: DIPHENHYDRAMINE 25 MG CAP PO ×3 (05:45→21:15)
[2017-07-06] MEDS: FUROSEMIDE 40 MG INJ IV ×2 (06:54→17:32)
[2017-07-06] MEDS: CLINDAMYCIN 600 MG/D5W (PMX) 50 ML IVPB ×3 (06:54→21:10)
[2017-07-06] MEDS: CHOLECALCIFEROL 2,000 UNIT CAP PO (08:18)
[2017-07-06] MEDS: METOPROLOL 50 MG TAB PO ×2 (08:18→21:10)
[2017-07-06] MEDS: ACETAZOLAMIDE 250 MG TAB PO ×2 (08:19→21:10)
[2017-07-06] MEDS: HYDROCORTISONE 1% 28 GM CR TOP ×2 (08:19→21:10)
[2017-07-06] MEDS: LORATADINE 10 MG TAB PO (08:19)
[2017-07-06] MEDS: ENOXAPARIN 30 MG/0.3 ML SYG SC (08:22)
[2017-07-06] MEDS: POTASSIUM CHLORIDE 100 ML IVPB (08:22)
[2017-07-06] MEDS ORDERED: LIDOCAINE 2% (SDV) 5 ML INJ (11:56)
[2017-07-06] MEDS ORDERED: PROPOFOL 40 ML (11:56)
[2017-07-06] MEDS: SOD FERRIC GLUC COMPLX 125 MG in SOD CHLORIDE 0.9% 100 ML IVPB (17:30)
[2017-07-07] MEDS: DIPHENHYDRAMINE 25 MG CAP PO ×3 (05:24→22:20)
[2017-07-07] MEDS: CLINDAMYCIN 600 MG/D5W (PMX) 50 ML IVPB ×3 (05:24→21:37)
[2017-07-07] MEDS: SPIRONOLACTONE 25 MG TAB PO ×2 (05:24→18:06)
[2017-07-07] MEDS: FUROSEMIDE 40 MG INJ IV (05:28)
[2017-07-07 05:37] LABS: ADD MAN DIFF? NO
[2017-07-07 05:46] LABS: WHITE BLOOD COUNT 16.7 10^3/ul (4.8-10.8)
[2017-07-07 05:46] LABS: BASOPHIL # 0.1 10^3/ul (0.0-0.1); BASOPHILS % 0.4 % (0.0-2.0); EOSINOPHILS # 0.7 10^3/ul (0.0-0.5); EOSINOPHILS % 4.1 % (0.0-7.0); HEMATOCRIT 25.5 % (37.0-47.0); HEMOGLOBIN 8.1 g/dl (12.0-16.0); LYMPHOCYTES # 3.9 10^3/ul (0.8-2.9); LYMPHOCYTES % 23.4 % (15.0-51.0); MEAN CORPUSCULAR HEMOGLOBIN 30.7 pg (29.0-33.0); MEAN CORPUSCULAR HGB CONC 31.8 g/dl (32.0-37.0); MEAN CORPUSCULAR VOLUME 96.6 fl (82.0-101.0); MEAN PLATELET VOLUME 10.3 fl (7.4-10.4); MONOCYTES % 6.1 % (0.0-11.0); NEUTROPHIL # 10.6 10^3/ul (1.6-7.5); NEUTROPHILS % 63.4 % (39.0-77.0); NUCLEATED RED BLOOD CELLS% 0.2 /100WBC (0.0-0.0); PLATELET COUNT 262 10^3/UL (140-415); RED BLOOD COUNT 2.64 10^6/ul (4.20-5.40); RED CELL DISTRIBUTION WIDTH 17.2 % (11.5-14.5)
[2017-07-07 06:14] LABS: ALANINE AMINOTRANSFERASE 42 IU/L (13-69); ALBUMIN/GLOBULIN RATIO 0.66; ALKALINE PHOSPHATASE 220 IU/L (42-121); ANION GAP 9 (8-16); ASPARTATE AMINO TRANSFERASE 38 IU/L (15-46); BILIRUBIN,INDIRECT 0.4 mg/dl (0-1.1); BILIRUBIN,TOTAL 0.4 mg/dl (0.2-1.3); BLOOD UREA NITROGEN 30 mg/dl (7-20); CALCIUM 7.5 mg/dl (8.4-10.2); CARBON DIOXIDE 33 mmol/L (21-31); CHLORIDE 102 mmol/L (97-110); CREATININE 1.37 mg/dl (0.44-1.00); GLUCOSE 112 mg/dl (70-220); POTASSIUM 4.1 mmol/L (3.5-5.1); SODIUM 140 mmol/L (135-144)
[2017-07-07] MEDS: LORATADINE 10 MG TAB PO (08:22)
[2017-07-07] MEDS: CHOLECALCIFEROL 2,000 UNIT CAP PO (08:22)
[2017-07-07] MEDS: METOPROLOL 50 MG TAB PO ×2 (08:23→22:21)
[2017-07-07] MEDS: HYDROCORTISONE 1% 28 GM CR TOP ×2 (08:24→22:22)
[2017-07-07] MEDS: POTASSIUM CHLORIDE 100 ML IVPB (08:26)
[2017-07-07] MEDS: ACETAZOLAMIDE 250 MG TAB PO ×2 (08:27→22:20)
[2017-07-07] MEDS: ENOXAPARIN 30 MG/0.3 ML SYG SC (08:32)
[2017-07-07] MEDS: ALBUMIN HUMAN 25% 100 ML IV ×2 (13:13→20:05)
[2017-07-07] MEDS: SOD FERRIC GLUC COMPLX 125 MG in SOD CHLORIDE 0.9% 100 ML IVPB (18:06)
[2017-07-07] MEDS: FUROSEMIDE 20 MG INJ IV (18:09)
[2017-07-08] MEDS: ALBUMIN HUMAN 25% 100 ML IV (04:04)
[2017-07-08] MEDS: SPIRONOLACTONE 25 MG TAB PO ×2 (06:00→08:58)
[2017-07-08] MEDS: DIPHENHYDRAMINE 25 MG CAP PO ×3 (06:00→21:38)
[2017-07-08] MEDS: CLINDAMYCIN 600 MG/D5W (PMX) 50 ML IVPB ×3 (06:09→21:39)
[2017-07-08] MEDS: FUROSEMIDE 20 MG INJ IV ×2 (06:13→09:49)
[2017-07-08 06:42] LABS: ADD MAN DIFF? NO
[2017-07-08 06:47] LABS: BASOPHIL # 0.1 10^3/ul (0.0-0.1); BASOPHILS % 0.7 % (0.0-2.0); EOSINOPHILS # 0.9 10^3/ul (0.0-0.5); EOSINOPHILS % 6.1 % (0.0-7.0); HEMATOCRIT 24.2 % (37.0-47.0); HEMOGLOBIN 7.6 g/dl (12.0-16.0); LYMPHOCYTES # 3.6 10^3/ul (0.8-2.9); LYMPHOCYTES % 24.1 % (15.0-51.0); MEAN CORPUSCULAR HEMOGLOBIN 30.9 pg (29.0-33.0); MEAN CORPUSCULAR HGB CONC 31.4 g/dl (32.0-37.0); MEAN CORPUSCULAR VOLUME 98.4 fl (82.0-101.0); MEAN PLATELET VOLUME 10.1 fl (7.4-10.4); MONOCYTES % 6.5 % (0.0-11.0); NEUTROPHIL # 8.7 10^3/ul (1.6-7.5); NEUTROPHILS % 58.3 % (39.0-77.0); NUCLEATED RED BLOOD CELLS% 0.3 /100WBC (0.0-0.0); PLATELET COUNT 265 10^3/UL (140-415); RED BLOOD COUNT 2.46 10^6/ul (4.20-5.40); RED CELL DISTRIBUTION WIDTH 17.3 % (11.5-14.5)
[2017-07-08 07:26] LABS: ALANINE AMINOTRANSFERASE 37 IU/L (13-69); ALKALINE PHOSPHATASE 193 IU/L (42-121); ANION GAP 12 (8-16); ASPARTATE AMINO TRANSFERASE 25 IU/L (15-46); BILIRUBIN,INDIRECT 0.5 mg/dl (0-1.1); BILIRUBIN,TOTAL 0.5 mg/dl (0.2-1.3); BLOOD UREA NITROGEN 25 mg/dl (7-20); CALCIUM 8.4 mg/dl (8.4-10.2); CARBON DIOXIDE 32 mmol/L (21-31); CHLORIDE 106 mmol/L (97-110); CREATININE 1.41 mg/dl (0.44-1.00); GLUCOSE 91 mg/dl (70-220); MAGNESIUM 2.2 mg/dl (1.7-2.5); POTASSIUM 3.5 mmol/L (3.5-5.1); SODIUM 146 mmol/L (135-144)
[2017-07-08] MEDS: METOPROLOL 50 MG TAB PO ×2 (08:58→20:34)
[2017-07-08] MEDS: POTASSIUM CHLORIDE 100 ML IVPB (08:58)
[2017-07-08] MEDS: CHOLECALCIFEROL 2,000 UNIT CAP PO (08:58)
[2017-07-08] MEDS: LORATADINE 10 MG TAB PO (08:58)
[2017-07-08] MEDS: HYDROCORTISONE 1% 28 GM CR TOP ×2 (08:59→21:39)
[2017-07-08] MEDS: ENOXAPARIN 30 MG/0.3 ML SYG SC (09:04)
[2017-07-08] MEDS: FUROSEMIDE 40 MG INJ IV (17:09)
[2017-07-09] MEDS: SPIRONOLACTONE 25 MG TAB PO ×2 (05:43→17:30)
[2017-07-09] MEDS: CLINDAMYCIN 600 MG/D5W (PMX) 50 ML IVPB ×3 (05:43→21:21)
[2017-07-09] MEDS: DIPHENHYDRAMINE 25 MG CAP PO ×3 (05:43→21:16)
[2017-07-09] MEDS: FUROSEMIDE 40 MG INJ IV ×2 (05:43→17:39)
[2017-07-09 05:48] LABS: WHITE BLOOD COUNT 19.1 10^3/ul (4.8-10.8)
[2017-07-09 05:48] LABS: HEMATOCRIT 25.6 % (37.0-47.0); MEAN CORPUSCULAR HEMOGLOBIN 30.8 pg (29.0-33.0); MEAN CORPUSCULAR HGB CONC 31.3 g/dl (32.0-37.0); MEAN CORPUSCULAR VOLUME 98.5 fl (82.0-101.0); MEAN PLATELET VOLUME 10.4 fl (7.4-10.4); NUCLEATED RED BLOOD CELLS% 0.1 /100WBC (0.0-0.0); PLATELET COUNT 293 10^3/UL (140-415); RED CELL DISTRIBUTION WIDTH 17.8 % (11.5-14.5)
[2017-07-09 05:49] LABS: ADD MAN DIFF? YES; POSITIVE DIFF @See below
[2017-07-09 07:27] LABS: ANISOCYTOSIS 1+ (0-0); BAND NEUTROPHILS #M 0.5 10^3/ul (0.0-0.6); BAND NEUTROPHILS % (M) 3 % (0-4); EOSINOPHILS % (M) 10 % (0-7); GIANT THROMBO% (M) 3 % (0-0); LYMPHOCYTES #M 3.6 10^3/ul (0.8-2.9); LYMPHOCYTES % (M) 19 % (15-51); MONOCYTE #M 1.3 10^3/ul (0.3-0.9); MONOCYTES % (M) 7 % (0-11); MYELOCYTES #M 0.1 10^3/ul (0.0-0.0); MYELOCYTES % (M) 1 % (0-0); PLATELET ESTIMATE NORMAL; POLYCHROMASIA 1+ (0-0); PROMYELOCYTES #M 0.1 10^3/ul (0-0); PROMYELOCYTES % (M) 1 % (0-0); SEG NEUT #M 11.4 10^3/ul (1.6-7.5); SEGMENTED NEUTROPHILS (M) % 59 % (39-77); SMUDGE%M 6 % (0-0)
[2017-07-09 07:43] LABS: ALANINE AMINOTRANSFERASE 34 IU/L (13-69); ALBUMIN 2.8 g/dl (3.3-4.9); ALBUMIN/GLOBULIN RATIO 0.84; ALKALINE PHOSPHATASE 217 IU/L (42-121); ANION GAP 13 (8-16); ASPARTATE AMINO TRANSFERASE 31 IU/L (15-46); BILIRUBIN,INDIRECT 0.3 mg/dl (0-1.1); BILIRUBIN,TOTAL 0.3 mg/dl (0.2-1.3); BLOOD UREA NITROGEN 25 mg/dl (7-20); CALCIUM 8.3 mg/dl (8.4-10.2); CARBON DIOXIDE 30 mmol/L (21-31); CHLORIDE 105 mmol/L (97-110); CREATININE 1.42 mg/dl (0.44-1.00); GLUCOSE 102 mg/dl (70-220); MAGNESIUM 2.2 mg/dl (1.7-2.5); POTASSIUM 3.6 mmol/L (3.5-5.1); SODIUM 144 mmol/L (135-144); TOTAL PROTEIN 6.1 g/dl (6.1-8.1)
[2017-07-09] MEDS: POTASSIUM CHLORIDE 100 ML IVPB (09:09)
[2017-07-09] MEDS: LORATADINE 10 MG TAB PO (09:09)
[2017-07-09] MEDS: CHOLECALCIFEROL 2,000 UNIT CAP PO (09:09)
[2017-07-09] MEDS: METOPROLOL 50 MG TAB PO ×2 (09:10→21:17)
[2017-07-09] MEDS: HYDROCORTISONE 1% 28 GM CR TOP ×2 (09:11→21:18)
[2017-07-09] MEDS: ENOXAPARIN 30 MG/0.3 ML SYG SC (09:14)
[2017-07-09] MEDS: GUAIFENESIN/CODEINE 5ML CUP PO (16:04)
[2017-07-09] MEDS: IOHEXOL 14.3 MG(I)/ML (ADULT) BTL PO (23:56)
[2017-07-09] MEDS: SOD CHLORIDE 0.9% 1,000 ML IV (23:56)
[2017-07-10] MEDS: IODIXANOL LOCM 100 ML BTL (02:44)
[2017-07-10] MEDS: SOD CHLORIDE 0.9% 100 ML (02:44)
[2017-07-10] MEDS: SOD CHLORIDE 0.9% 1,000 ML IV (03:04)
[2017-07-10] MEDS: SPIRONOLACTONE 25 MG TAB PO ×2 (05:56→18:06)
[2017-07-10] MEDS: DIPHENHYDRAMINE 25 MG CAP PO ×3 (05:56→20:58)
[2017-07-10] MEDS: CLINDAMYCIN 600 MG/D5W (PMX) 50 ML IVPB ×3 (05:56→20:58)
[2017-07-10] MEDS: FUROSEMIDE 40 MG INJ IV ×2 (06:11→18:06)
[2017-07-10 06:14] LABS: HEMATOCRIT 25.6 % (37.0-47.0); HEMOGLOBIN 8.3 g/dl (12.0-16.0); MEAN CORPUSCULAR HEMOGLOBIN 31.8 pg (29.0-33.0); MEAN CORPUSCULAR HGB CONC 32.4 g/dl (32.0-37.0); MEAN CORPUSCULAR VOLUME 98.1 fl (82.0-101.0); MEAN PLATELET VOLUME 10.3 fl (7.4-10.4); NUCLEATED RED BLOOD CELLS% 0.1 /100WBC (0.0-0.0); PLATELET COUNT 300 10^3/UL (140-415); RED BLOOD COUNT 2.61 10^6/ul (4.20-5.40)
[2017-07-10 06:14] LABS: WHITE BLOOD COUNT 16.1 10^3/ul (4.8-10.8)
[2017-07-10 06:25] LABS: ADD MAN DIFF? YES; POSITIVE DIFF @See below
[2017-07-10 06:36] LABS: ALANINE AMINOTRANSFERASE 34 IU/L (13-69); ALBUMIN 2.7 g/dl (3.3-4.9); ALBUMIN/GLOBULIN RATIO 0.79; ALKALINE PHOSPHATASE 207 IU/L (42-121); ANION GAP 12 (8-16); ASPARTATE AMINO TRANSFERASE 25 IU/L (15-46); BILIRUBIN,INDIRECT 0.4 mg/dl (0-1.1); BILIRUBIN,TOTAL 0.4 mg/dl (0.2-1.3); BLOOD UREA NITROGEN 23 mg/dl (7-20); CALCIUM 7.9 mg/dl (8.4-10.2); CARBON DIOXIDE 30 mmol/L (21-31); CHLORIDE 105 mmol/L (97-110); GLUCOSE 86 mg/dl (70-220); MAGNESIUM 1.9 mg/dl (1.7-2.5); POTASSIUM 3.6 mmol/L (3.5-5.1); SODIUM 143 mmol/L (135-144); TOTAL PROTEIN 6.1 g/dl (6.1-8.1)
[2017-07-10 07:09] LABS: ANISOCYTOSIS 1+ (0-0); BAND NEUTROPHILS #M 0.6 10^3/ul (0.0-0.6); BAND NEUTROPHILS % (M) 4 % (0-4); BASOPHIL #M 0.3 10^3/ul (0.0-0.0); BASOPHILS % (M) 2 % (0-2); EOSINOPHILS % (M) 6 % (0-7); LYMPHOCYTES #M 4.5 10^3/ul (0.8-2.9); LYMPHOCYTES % (M) 28 % (15-51); METAMYELOCYTES #M 0.3 10^3/ul (0.0-0.0); METAMYELOCYTES %M 2 % (0-0); MONOCYTE #M 0.4 10^3/ul (0.3-0.9); MONOCYTES % (M) 3 % (0-11); MYELOCYTES #M 0.3 10^3/ul (0.0-0.0); MYELOCYTES % (M) 2 % (0-0); PLATELET ESTIMATE NORMAL; POLYCHROMASIA 3+ (0-0); SEG NEUT #M 8.6 10^3/ul (1.6-7.5); SEGMENTED NEUTROPHILS (M) % 53 % (39-77); SMUDGE%M 17 % (0-0)
[2017-07-10] MEDS: ENOXAPARIN 30 MG/0.3 ML SYG SC (09:24)
[2017-07-10] MEDS: METOPROLOL 50 MG TAB PO ×2 (09:25→20:58)
[2017-07-10] MEDS: CHOLECALCIFEROL 2,000 UNIT CAP PO (09:25)
[2017-07-10] MEDS: LORATADINE 10 MG TAB PO (09:25)
[2017-07-10] MEDS: HYDROCORTISONE 1% 28 GM CR TOP ×2 (09:26→20:59)
[2017-07-10] MEDS: POTASSIUM CHLORIDE 100 ML IVPB (09:30)
[2017-07-11] MEDS: CLINDAMYCIN 600 MG/D5W (PMX) 50 ML IVPB ×3 (05:16→22:03)
[2017-07-11] MEDS: DIPHENHYDRAMINE 25 MG CAP PO ×3 (05:18→22:08)
[2017-07-11] MEDS: FUROSEMIDE 40 MG INJ IV ×2 (05:18→17:52)
[2017-07-11] MEDS: SPIRONOLACTONE 25 MG TAB PO ×2 (05:18→17:51)
[2017-07-11 05:55] LABS: ADD MAN DIFF? NO
[2017-07-11 05:58] LABS: ABNORMAL IP MESSAGE 1; BASOPHIL # 0.1 10^3/ul (0.0-0.1); BASOPHILS % 0.5 % (0.0-2.0); EOSINOPHILS # 1.6 10^3/ul (0.0-0.5); EOSINOPHILS % 9.7 % (0.0-7.0); HEMATOCRIT 26.8 % (37.0-47.0); HEMOGLOBIN 8.5 g/dl (12.0-16.0); LYMPHOCYTES # 5.1 10^3/ul (0.8-2.9); LYMPHOCYTES % 30.6 % (15.0-51.0); MEAN CORPUSCULAR HEMOGLOBIN 30.8 pg (29.0-33.0); MEAN CORPUSCULAR HGB CONC 31.7 g/dl (32.0-37.0); MEAN CORPUSCULAR VOLUME 97.1 fl (82.0-101.0); MEAN PLATELET VOLUME 9.9 fl (7.4-10.4); MONOCYTE # 0.9 10^3/ul (0.3-0.9); MONOCYTES % 5.2 % (0.0-11.0); NEUTROPHIL # 8.5 10^3/ul (1.6-7.5); NEUTROPHILS % 51.5 % (39.0-77.0); PLATELET COUNT 309 10^3/UL (140-415); POSITIVE DIFF @See below; RED BLOOD COUNT 2.76 10^6/ul (4.20-5.40); RED CELL DISTRIBUTION WIDTH 18.1 % (11.5-14.5)
[2017-07-11 05:58] LABS: WHITE BLOOD COUNT 16.5 10^3/ul (4.8-10.8)
[2017-07-11 06:29] LABS: ALANINE AMINOTRANSFERASE 31 IU/L (13-69); ALBUMIN 2.8 g/dl (3.3-4.9); ALBUMIN/GLOBULIN RATIO 0.75; ALKALINE PHOSPHATASE 222 IU/L (42-121); ANION GAP 13 (8-16); ASPARTATE AMINO TRANSFERASE 25 IU/L (15-46); BILIRUBIN,INDIRECT 0.4 mg/dl (0-1.1); BILIRUBIN,TOTAL 0.4 mg/dl (0.2-1.3); BLOOD UREA NITROGEN 24 mg/dl (7-20); CALCIUM 8.2 mg/dl (8.4-10.2); CARBON DIOXIDE 29 mmol/L (21-31); CHLORIDE 105 mmol/L (97-110); CREATININE 1.38 mg/dl (0.44-1.00); GLUCOSE 91 mg/dl (70-220); POTASSIUM 3.9 mmol/L (3.5-5.1); SODIUM 143 mmol/L (135-144); TOTAL PROTEIN 6.5 g/dl (6.1-8.1)
[2017-07-11] MEDS: METOPROLOL 50 MG TAB PO ×2 (09:00→20:53)
[2017-07-11] MEDS: CHOLECALCIFEROL 2,000 UNIT CAP PO (09:00)
[2017-07-11] MEDS: ENOXAPARIN 30 MG/0.3 ML SYG SC ×2 (09:00→17:59)
[2017-07-11] MEDS: LORATADINE 10 MG TAB PO (09:00)
[2017-07-11] MEDS: HYDROCORTISONE 1% 28 GM CR TOP ×2 (10:05→20:54)
[2017-07-11] MEDS: POTASSIUM CHLORIDE 100 ML IVPB (10:05)
[2017-07-12] MEDS: DIPHENHYDRAMINE 25 MG CAP PO ×3 (06:02→21:59)
[2017-07-12] MEDS: SPIRONOLACTONE 25 MG TAB PO ×2 (06:02→17:49)
[2017-07-12] MEDS: FUROSEMIDE 40 MG INJ IV (06:02)
[2017-07-12] MEDS: CLINDAMYCIN 600 MG/D5W (PMX) 50 ML IVPB ×3 (06:04→21:59)
[2017-07-12] MEDS: POTASSIUM CHLORIDE 100 ML IVPB (08:45)
[2017-07-12] MEDS: CHOLECALCIFEROL 2,000 UNIT CAP PO (08:45)
[2017-07-12] MEDS: LORATADINE 10 MG TAB PO (08:45)
[2017-07-12] MEDS: HYDROCORTISONE 1% 28 GM CR TOP ×2 (08:46→20:46)
[2017-07-12] MEDS: METOPROLOL 50 MG TAB PO ×2 (08:46→20:45)
[2017-07-12] MEDS: ENOXAPARIN 30 MG/0.3 ML SYG SC (08:53)
[2017-07-12 13:48] LABS: ADD MAN DIFF? NO
[2017-07-12 13:50] LABS: WHITE BLOOD COUNT 16.9 10^3/ul (4.8-10.8)
[2017-07-12 13:50] LABS: ABNORMAL IP MESSAGE 1; BASOPHIL # 0.1 10^3/ul (0.0-0.1); BASOPHILS % 0.4 % (0.0-2.0); EOSINOPHILS # 1.6 10^3/ul (0.0-0.5); EOSINOPHILS % 9.5 % (0.0-7.0); HEMATOCRIT 26.5 % (37.0-47.0); HEMOGLOBIN 8.4 g/dl (12.0-16.0); LYMPHOCYTES # 5.8 10^3/ul (0.8-2.9); MEAN CORPUSCULAR HEMOGLOBIN 30.7 pg (29.0-33.0); MEAN CORPUSCULAR HGB CONC 31.7 g/dl (32.0-37.0); MEAN CORPUSCULAR VOLUME 96.7 fl (82.0-101.0); MEAN PLATELET VOLUME 10.2 fl (7.4-10.4); NEUTROPHIL # 8.1 10^3/ul (1.6-7.5); NEUTROPHILS % 47.7 % (39.0-77.0); PLATELET COUNT 308 10^3/UL (140-415); RED BLOOD COUNT 2.74 10^6/ul (4.20-5.40); RED CELL DISTRIBUTION WIDTH 18.3 % (11.5-14.5)
[2017-07-12 13:51] LABS: POSITIVE DIFF @See below
[2017-07-12 14:14] LABS: ALANINE AMINOTRANSFERASE 34 IU/L (13-69); ALBUMIN/GLOBULIN RATIO 0.73; ALKALINE PHOSPHATASE 216 IU/L (42-121); ANION GAP 12 (8-16); ASPARTATE AMINO TRANSFERASE 33 IU/L (15-46); BILIRUBIN,INDIRECT 0.4 mg/dl (0-1.1); BILIRUBIN,TOTAL 0.4 mg/dl (0.2-1.3); BLOOD UREA NITROGEN 28 mg/dl (7-20); CALCIUM 7.9 mg/dl (8.4-10.2); CARBON DIOXIDE 29 mmol/L (21-31); CHLORIDE 105 mmol/L (97-110); CREATININE 1.32 mg/dl (0.44-1.00); GLUCOSE 92 mg/dl (70-220); SODIUM 142 mmol/L (135-144); TOTAL PROTEIN 7.1 g/dl (6.1-8.1)
[2017-07-12 14:58] LABS: ANISOCYTOSIS 1+ (0-0); BAND NEUTROPHILS #M 1.8 10^3/ul (0.0-0.6); BAND NEUTROPHILS % (M) 11 % (0-4); EOSINOPHILS % (M) 7 % (0-7); HYPOCHROMASIA 1+ (0-0); LYMPHOCYTES % (M) 30 % (15-51); MONOCYTE #M 0.3 10^3/ul (0.3-0.9); MONOCYTES % (M) 2 % (0-11); PLATELET ESTIMATE NORMAL; POLYCHROMASIA 2+ (0-0); REACTIVE LYMPHOCYTES #M 0.1 10^3/ul (0.0-0.0); REACTIVE LYMPHOCYTES% (M) 1 % (0-0); SEG NEUT #M 8.6 10^3/ul (1.6-7.5); SEGMENTED NEUTROPHILS (M) % 49 % (39-77); SMUDGE%M 35 % (0-0)
[2017-07-13] MEDS: CLINDAMYCIN 600 MG/D5W (PMX) 50 ML IVPB ×3 (05:46→21:58)
[2017-07-13] MEDS: SPIRONOLACTONE 25 MG TAB PO ×2 (05:46→18:23)
[2017-07-13] MEDS: DIPHENHYDRAMINE 25 MG CAP PO ×3 (05:46→21:58)
[2017-07-13] MEDS: CHOLECALCIFEROL 2,000 UNIT CAP PO (09:23)
[2017-07-13] MEDS: BUMETANIDE 1 MG TAB PO (09:24)
[2017-07-13] MEDS: POTASSIUM CHLORIDE 100 ML IVPB (09:26)
[2017-07-13] MEDS: LORATADINE 10 MG TAB PO (09:27)
[2017-07-13] MEDS: HYDROCORTISONE 1% 28 GM CR TOP ×2 (09:28→22:06)
[2017-07-13] MEDS: ENOXAPARIN 30 MG/0.3 ML SYG SC (09:34)
[2017-07-13] MEDS: METOPROLOL 50 MG TAB PO ×2 (09:35→21:09)
[2017-07-13 10:19] LABS: ADD MAN DIFF? NO
[2017-07-13 10:22] LABS: ABNORMAL IP MESSAGE 1; BASOPHIL # 0.1 10^3/ul (0.0-0.1); BASOPHILS % 0.7 % (0.0-2.0); EOSINOPHILS # 1.9 10^3/ul (0.0-0.5); EOSINOPHILS % 12.8 % (0.0-7.0); HEMOGLOBIN 9.2 g/dl (12.0-16.0); LYMPHOCYTES # 5.3 10^3/ul (0.8-2.9); LYMPHOCYTES % 35.6 % (15.0-51.0); MEAN CORPUSCULAR HGB CONC 31.7 g/dl (32.0-37.0); MEAN CORPUSCULAR VOLUME 97.6 fl (82.0-101.0); MEAN PLATELET VOLUME 10.1 fl (7.4-10.4); MONOCYTES % 6.8 % (0.0-11.0); NEUTROPHIL # 6.3 10^3/ul (1.6-7.5); NEUTROPHILS % 42.5 % (39.0-77.0); PLATELET COUNT 346 10^3/UL (140-415); RED BLOOD COUNT 2.97 10^6/ul (4.20-5.40); RED CELL DISTRIBUTION WIDTH 18.4 % (11.5-14.5)
[2017-07-13 10:22] LABS: WHITE BLOOD COUNT 14.8 10^3/ul (4.8-10.8)
[2017-07-13 10:27] LABS: POSITIVE DIFF @See below
[2017-07-13 10:45] LABS: ALANINE AMINOTRANSFERASE 29 IU/L (13-69); ALBUMIN 2.9 g/dl (3.3-4.9); ALKALINE PHOSPHATASE 202 IU/L (42-121); ANION GAP 9 (8-16); ASPARTATE AMINO TRANSFERASE 25 IU/L (15-46); BILIRUBIN,INDIRECT 0.4 mg/dl (0-1.1); BILIRUBIN,TOTAL 0.4 mg/dl (0.2-1.3); BLOOD UREA NITROGEN 23 mg/dl (7-20); CALCIUM 8.2 mg/dl (8.4-10.2); CARBON DIOXIDE 32 mmol/L (21-31); CHLORIDE 109 mmol/L (97-110); GLUCOSE 97 mg/dl (70-220); POTASSIUM 4.2 mmol/L (3.5-5.1); SODIUM 146 mmol/L (135-144)
[2017-07-14] MEDS: CLINDAMYCIN 600 MG/D5W (PMX) 50 ML IVPB ×3 (05:09→20:45)
[2017-07-14] MEDS: DIPHENHYDRAMINE 25 MG CAP PO ×3 (05:47→20:45)
[2017-07-14] MEDS: SPIRONOLACTONE 25 MG TAB PO ×2 (05:47→18:06)
[2017-07-14] MEDS: METOPROLOL 50 MG TAB PO ×2 (08:22→20:46)
[2017-07-14] MEDS: CHOLECALCIFEROL 2,000 UNIT CAP PO (08:22)
[2017-07-14] MEDS: BUMETANIDE 1 MG TAB PO (08:22)
[2017-07-14] MEDS: LORATADINE 10 MG TAB PO (08:22)
[2017-07-14] MEDS: HYDROCORTISONE 1% 28 GM CR TOP ×2 (08:22→20:45)
[2017-07-14] MEDS: ENOXAPARIN 30 MG/0.3 ML SYG SC (08:24)
[2017-07-14] MEDS: POTASSIUM CHLORIDE 100 ML IVPB (08:48)
[2017-07-15] MEDS: SPIRONOLACTONE 25 MG TAB PO ×2 (06:44→17:54)
[2017-07-15] MEDS: DIPHENHYDRAMINE 25 MG CAP PO ×3 (06:44→21:39)
[2017-07-15] MEDS: CLINDAMYCIN 600 MG/D5W (PMX) 50 ML IVPB ×3 (06:44→21:38)
[2017-07-15] MEDS: BUMETANIDE 1 MG TAB PO (09:37)
[2017-07-15] MEDS: POTASSIUM CHLORIDE 100 ML IVPB (10:00)
[2017-07-15] MEDS: LORATADINE 10 MG TAB PO (10:01)
[2017-07-15] MEDS: CHOLECALCIFEROL 2,000 UNIT CAP PO (10:01)
[2017-07-15] MEDS: METOPROLOL 50 MG TAB PO ×2 (10:01→21:39)
[2017-07-15] MEDS: ENOXAPARIN 30 MG/0.3 ML SYG SC (10:02)
[2017-07-15] MEDS: HYDROCORTISONE 1% 28 GM CR TOP ×2 (10:02→21:39)
[2017-07-16] MEDS: CLINDAMYCIN 600 MG/D5W (PMX) 50 ML IVPB ×3 (06:01→21:29)
[2017-07-16] MEDS: BUMETANIDE 1 MG TAB PO ×2 (06:02→18:51)
[2017-07-16] MEDS: SPIRONOLACTONE 25 MG TAB PO ×2 (06:02→18:51)
[2017-07-16] MEDS: DIPHENHYDRAMINE 25 MG CAP PO ×3 (06:02→21:29)
[2017-07-16] MEDS: CHOLECALCIFEROL 2,000 UNIT CAP PO (09:05)
[2017-07-16] MEDS: METOPROLOL 50 MG TAB PO ×2 (09:06→21:30)
[2017-07-16] MEDS: LORATADINE 10 MG TAB PO (09:06)
[2017-07-16] MEDS: POTASSIUM CHLORIDE 100 ML IVPB (09:07)
[2017-07-16] MEDS: ENOXAPARIN 30 MG/0.3 ML SYG SC (09:11)
[2017-07-16] MEDS: HYDROCORTISONE 1% 28 GM CR TOP ×2 (09:12→21:30)
[2017-07-17] MEDS: SPIRONOLACTONE 25 MG TAB PO ×2 (05:29→17:36)
[2017-07-17] MEDS: BUMETANIDE 1 MG TAB PO ×2 (05:29→17:36)
[2017-07-17] MEDS: DIPHENHYDRAMINE 25 MG CAP PO ×2 (05:29→13:37)
[2017-07-17] MEDS: CLINDAMYCIN 600 MG/D5W (PMX) 50 ML IVPB ×3 (05:30→23:25)
[2017-07-17 05:49] LABS: ADD MAN DIFF? NO
[2017-07-17 05:53] LABS: ABNORMAL IP MESSAGE 1; BASOPHIL # 0.1 10^3/ul (0.0-0.1); BASOPHILS % 0.8 % (0.0-2.0); EOSINOPHILS # 1.5 10^3/ul (0.0-0.5); EOSINOPHILS % 10.8 % (0.0-7.0); HEMOGLOBIN 9.3 g/dl (12.0-16.0); LYMPHOCYTES # 5.6 10^3/ul (0.8-2.9); LYMPHOCYTES % 40.3 % (15.0-51.0); MEAN CORPUSCULAR HEMOGLOBIN 31.1 pg (29.0-33.0); MEAN CORPUSCULAR HGB CONC 32.1 g/dl (32.0-37.0); MONOCYTE # 1.2 10^3/ul (0.3-0.9); MONOCYTES % 8.4 % (0.0-11.0); NEUTROPHIL # 5.4 10^3/ul (1.6-7.5); NEUTROPHILS % 39.1 % (39.0-77.0); PLATELET COUNT 319 10^3/UL (140-415); RED BLOOD COUNT 2.99 10^6/ul (4.20-5.40); RED CELL DISTRIBUTION WIDTH 18.1 % (11.5-14.5)
[2017-07-17 05:53] LABS: WHITE BLOOD COUNT 13.9 10^3/ul (4.8-10.8)
[2017-07-17 06:01] LABS: POSITIVE DIFF @See below
[2017-07-17] MEDS: POTASSIUM CHLORIDE 100 ML IVPB (08:09)
[2017-07-17] MEDS: LORATADINE 10 MG TAB PO (08:10)
[2017-07-17] MEDS: HYDROCORTISONE 1% 28 GM CR TOP ×2 (08:10→20:08)
[2017-07-17] MEDS: METOPROLOL 50 MG TAB PO ×2 (08:10→20:08)
[2017-07-17] MEDS: CHOLECALCIFEROL 2,000 UNIT CAP PO (08:10)
[2017-07-17] MEDS: ENOXAPARIN 30 MG/0.3 ML SYG SC (08:14)
[2017-07-18] MEDS: BUMETANIDE 1 MG TAB PO ×2 (05:20→17:58)
[2017-07-18] MEDS: SPIRONOLACTONE 25 MG TAB PO ×2 (05:20→17:58)
[2017-07-18] MEDS: CLINDAMYCIN 600 MG/D5W (PMX) 50 ML IVPB ×3 (05:20→21:31)
[2017-07-18] MEDS: LORATADINE 10 MG TAB PO (09:26)
[2017-07-18] MEDS: METOPROLOL 50 MG TAB PO ×2 (09:26→21:32)
[2017-07-18] MEDS: CHOLECALCIFEROL 2,000 UNIT CAP PO (09:26)
[2017-07-18] MEDS: HYDROCORTISONE 1% 28 GM CR TOP ×2 (09:27→21:32)
[2017-07-18] MEDS: ENOXAPARIN 30 MG/0.3 ML SYG SC (09:31)
[2017-07-18] MEDS: POTASSIUM CHLORIDE 100 ML IVPB (09:32)
[2017-07-19 06:12] LABS: ADD MAN DIFF? NO
[2017-07-19] MEDS: CLINDAMYCIN 600 MG/D5W (PMX) 50 ML IVPB ×3 (06:18→21:17)
[2017-07-19] MEDS: SPIRONOLACTONE 25 MG TAB PO ×2 (06:18→17:41)
[2017-07-19] MEDS: BUMETANIDE 1 MG TAB PO ×2 (06:19→17:40)
[2017-07-19 06:22] LABS: WHITE BLOOD COUNT 13.1 10^3/ul (4.8-10.8)
[2017-07-19 06:22] LABS: ABNORMAL IP MESSAGE 1; BASOPHIL # 0.1 10^3/ul (0.0-0.1); BASOPHILS % 0.8 % (0.0-2.0); EOSINOPHILS % 7.4 % (0.0-7.0); HEMATOCRIT 29.7 % (37.0-47.0); HEMOGLOBIN 9.4 g/dl (12.0-16.0); LYMPHOCYTES # 5.5 10^3/ul (0.8-2.9); LYMPHOCYTES % 42.1 % (15.0-51.0); MEAN CORPUSCULAR HGB CONC 31.6 g/dl (32.0-37.0); MEAN PLATELET VOLUME 10.2 fl (7.4-10.4); MONOCYTES % 7.6 % (0.0-11.0); NEUTROPHIL # 5.4 10^3/ul (1.6-7.5); NEUTROPHILS % 41.6 % (39.0-77.0); PLATELET COUNT 339 10^3/UL (140-415); RED BLOOD COUNT 3.03 10^6/ul (4.20-5.40); RED CELL DISTRIBUTION WIDTH 17.8 % (11.5-14.5)
[2017-07-19 06:30] LABS: POSITIVE DIFF @See below
[2017-07-19 08:35] LABS: ERYTHROCYTE SEDIMENTATION RATE 126 mm/Hr (0-30)
[2017-07-19 08:52] LABS: C-REACTIVE PROTEIN 3.5 mg/dl (0.0-0.9)
[2017-07-19] MEDS: CHOLECALCIFEROL 2,000 UNIT CAP PO (09:01)
[2017-07-19] MEDS: METOPROLOL 50 MG TAB PO ×2 (09:01→21:17)
[2017-07-19] MEDS: HYDROCORTISONE 1% 28 GM CR TOP ×2 (09:02→21:18)
[2017-07-19] MEDS: ENOXAPARIN 30 MG/0.3 ML SYG SC (09:03)
[2017-07-19] MEDS: LORATADINE 10 MG TAB PO (09:05)
[2017-07-19] MEDS: POTASSIUM CHLORIDE 100 ML IVPB (09:06)
[2017-07-19 19:40] LABS: IRON 61 ug/dl (35-150)
[2017-07-19 19:49] LABS: % IRON SATURATION 30 % SAT (22-52); TOTAL IRON BINDING CAPACITY 203 ug/dl (241-421)
[2017-07-20] MEDS: SPIRONOLACTONE 25 MG TAB PO ×2 (05:14→17:57)
[2017-07-20] MEDS: CLINDAMYCIN 600 MG/D5W (PMX) 50 ML IVPB ×3 (05:14→21:30)
[2017-07-20] MEDS: BUMETANIDE 1 MG TAB PO ×2 (05:14→17:57)
[2017-07-20] MEDS: METOPROLOL 50 MG TAB PO ×2 (08:41→20:33)
[2017-07-20] MEDS: CHOLECALCIFEROL 2,000 UNIT CAP PO (08:41)
[2017-07-20] MEDS: LORATADINE 10 MG TAB PO (08:41)
[2017-07-20] MEDS: HYDROCORTISONE 1% 28 GM CR TOP ×2 (08:42→20:32)
[2017-07-20] MEDS: ENOXAPARIN 30 MG/0.3 ML SYG SC (08:44)
[2017-07-20] MEDS: POTASSIUM CHLORIDE 100 ML IVPB (08:51)
[2017-07-21] MEDS: GUAIFENESIN/CODEINE 5ML CUP PO (00:19)
[2017-07-21] MEDS: BUMETANIDE 1 MG TAB PO ×2 (05:26→17:54)
[2017-07-21] MEDS: CLINDAMYCIN 600 MG/D5W (PMX) 50 ML IVPB ×3 (05:26→21:26)
[2017-07-21] MEDS: SPIRONOLACTONE 25 MG TAB PO ×2 (05:26→17:54)
[2017-07-21 06:58] LABS: ANION GAP 19 (8-16); BLOOD UREA NITROGEN 49 mg/dl (7-20); CALCIUM 9.3 mg/dl (8.4-10.2); CARBON DIOXIDE 25 mmol/L (21-31); CHLORIDE 102 mmol/L (97-110); GLUCOSE 109 mg/dl (70-220); POTASSIUM 5.1 mmol/L (3.5-5.1); SODIUM 141 mmol/L (135-144)
[2017-07-21] MEDS: POTASSIUM CHLORIDE 100 ML IVPB (08:58)
[2017-07-21] MEDS: ENOXAPARIN 30 MG/0.3 ML SYG SC (08:58)
[2017-07-21] MEDS: LORATADINE 10 MG TAB PO (08:59)
[2017-07-21] MEDS: CHOLECALCIFEROL 2,000 UNIT CAP PO (08:59)
[2017-07-21] MEDS: METOPROLOL 50 MG TAB PO ×2 (08:59→20:35)
[2017-07-21] MEDS: HYDROCORTISONE 1% 28 GM CR TOP ×2 (09:00→20:35)
[2017-07-21] MEDS: SOD FERRIC GLUC COMPLX 125 MG in SOD CHLORIDE 0.9% 100 ML IVPB (17:52)
[2017-07-22] MEDS: BUMETANIDE 1 MG TAB PO ×2 (05:24→18:26)
[2017-07-22] MEDS: CLINDAMYCIN 600 MG/D5W (PMX) 50 ML IVPB ×3 (05:25→22:50)
[2017-07-22] MEDS: SPIRONOLACTONE 25 MG TAB PO ×2 (05:25→18:26)
[2017-07-22] MEDS: ACETAMINOPHEN 500 MG TAB PO (07:58)
[2017-07-22] MEDS: POTASSIUM CHLORIDE 100 ML IVPB (09:00)
[2017-07-22] MEDS: CHOLECALCIFEROL 2,000 UNIT CAP PO (09:45)
[2017-07-22] MEDS: HYDROCORTISONE 1% 28 GM CR TOP ×2 (09:45→20:08)
[2017-07-22] MEDS: METOPROLOL 50 MG TAB PO ×2 (09:46→20:08)
[2017-07-22] MEDS: LORATADINE 10 MG TAB PO (09:46)
[2017-07-22] MEDS: ENOXAPARIN 30 MG/0.3 ML SYG SC (09:50)
[2017-07-22 11:07] LABS: ADD MAN DIFF? NO
[2017-07-22 11:10] LABS: BASOPHIL # 0.1 10^3/ul (0.0-0.1); BASOPHILS % 0.7 % (0.0-2.0); EOSINOPHILS # 0.1 10^3/ul (0.0-0.5); EOSINOPHILS % 0.4 % (0.0-7.0); HEMATOCRIT 32.8 % (37.0-47.0); HEMOGLOBIN 10.5 g/dl (12.0-16.0); LYMPHOCYTES # 0.6 10^3/ul (0.8-2.9); MEAN CORPUSCULAR HEMOGLOBIN 31.7 pg (29.0-33.0); MEAN CORPUSCULAR VOLUME 99.1 fl (82.0-101.0); MEAN PLATELET VOLUME 9.6 fl (7.4-10.4); MONOCYTE # 0.6 10^3/ul (0.3-0.9); NEUTROPHIL # 13.9 10^3/ul (1.6-7.5); NEUTROPHILS % 90.1 % (39.0-77.0); PLATELET COUNT 347 10^3/UL (140-415); RED BLOOD COUNT 3.31 10^6/ul (4.20-5.40); RED CELL DISTRIBUTION WIDTH 17.5 % (11.5-14.5)
[2017-07-22 11:10] LABS: WHITE BLOOD COUNT 15.4 10^3/ul (4.8-10.8)
[2017-07-22] MEDS: DEXTROSE 5%-0.9% NACL 1,000 ML IV (13:12)
[2017-07-22] MEDS: SOD FERRIC GLUC COMPLX 125 MG in SOD CHLORIDE 0.9% 100 ML IVPB (18:26)
[2017-07-23 01:28] LABS: ADD UMIC YES; UR ASCORBIC ACID NEGATIVE (NEGATIVE); UR BACTERIA FEW /HPF (NONE SEEN); UR BILIRUBIN (Dip) NEGATIVE (NEGATIVE); UR BLOOD (Dip) 1+ mg/dL (NEGATIVE); UR CLARITY SLIGHTLY CLOUDY (CLEAR); UR COLOR YELLOW (YELLOW); UR GLUCOSE (Dip) NEGATIVE (NEGATIVE); UR KETONES (Dip) NEGATIVE (NEGATIVE); UR LEUKOCYTE ESTERASE (Dip) 2+ Leu/ul (NEGATIVE); UR NITRITE (Dip) NEGATIVE (NEGATIVE); UR RBC 22 /HPF (0-5); UR SPECIFIC GRAVITY (Dip) 1.026 (1.003-1.030); UR SQUAMOUS EPITHELIAL CELL FEW /HPF (FEW); UR TOTAL PROTEIN (Dip) NEGATIVE (NEGATIVE); UR UROBILINOGEN (Dip) NEGATIVE (NEGATIVE); UR WBC 55 /HPF (0-5)
[2017-07-23] MEDS: SPIRONOLACTONE 25 MG TAB PO ×2 (05:31→18:32)
[2017-07-23] MEDS: CLINDAMYCIN 600 MG/D5W (PMX) 50 ML IVPB ×3 (05:31→21:51)
[2017-07-23] MEDS: BUMETANIDE 1 MG TAB PO ×2 (05:31→18:32)
[2017-07-23] MEDS: CHOLECALCIFEROL 2,000 UNIT CAP PO (08:57)
[2017-07-23] MEDS: ACETAMINOPHEN 500 MG TAB PO ×2 (08:57→20:50)
[2017-07-23] MEDS: POTASSIUM CHLORIDE 100 ML IVPB (08:57)
[2017-07-23] MEDS: LORATADINE 10 MG TAB PO (08:57)
[2017-07-23] MEDS: HYDROCORTISONE 1% 28 GM CR TOP ×2 (08:58→20:51)
[2017-07-23] MEDS: SOD CHLORIDE 0.9% 250 ML IV (08:58)
[2017-07-23] MEDS: METOPROLOL 50 MG TAB PO ×2 (08:58→20:50)
[2017-07-23] MEDS: ENOXAPARIN 30 MG/0.3 ML SYG SC (09:07)
[2017-07-23 10:27] LABS: LACTIC ACID 2.8 mmol/L (0.5-2.0)
[2017-07-23] MEDS ORDERED: VANCOMYCIN 1.25 GM in SOD CHLORIDE 0.9% 250 ML IVPB (11:00)
[2017-07-23] MEDS ORDERED: VANCOMYCIN 1 GM (PMX) 250 ML IVPB (11:30)
[2017-07-23] MEDS ORDERED: AMIKACIN IV PER PHARMACY XX (11:30)
[2017-07-23] MEDS: AZTREONAM 1 GM/NS (PMX) 50 ML IVPB ×2 (15:56→20:51)
[2017-07-23] MEDS: AMIKACIN 350 MG in DEXTROSE 5% 100 ML IVPB (16:45)
[2017-07-23] MEDS ORDERED: PIPER-TAZO 3.375 GM IV (PMX) 100 ML IVPB (18:00)
[2017-07-23] MEDS: SOD FERRIC GLUC COMPLX 125 MG in SOD CHLORIDE 0.9% 100 ML IVPB (18:30)
[2017-07-23] MEDS: LIDOCAINE 1% (MPF) 5 ML VIAL SC (21:30)
[2017-07-23] MEDS: DIPHENHYDRAMINE 25 MG CAP PO (21:51)
[2017-07-24] MEDS: BUMETANIDE 1 MG TAB PO ×2 (06:00→17:39)
[2017-07-24] MEDS: CLINDAMYCIN 600 MG/D5W (PMX) 50 ML IVPB ×2 (06:00→14:02)
[2017-07-24] MEDS: SPIRONOLACTONE 25 MG TAB PO ×2 (06:01→17:39)
[2017-07-24] MEDS: POTASSIUM CHLORIDE 100 ML IVPB (08:36)
[2017-07-24] MEDS: AZTREONAM 1 GM/NS (PMX) 50 ML IVPB ×2 (08:36→20:51)
[2017-07-24] MEDS: CHOLECALCIFEROL 2,000 UNIT CAP PO (08:36)
[2017-07-24] MEDS: LORATADINE 10 MG TAB PO (08:36)
[2017-07-24] MEDS: ENOXAPARIN 30 MG/0.3 ML SYG SC (08:49)
[2017-07-24] MEDS: HYDROCORTISONE 1% 28 GM CR TOP ×2 (09:49→21:01)
[2017-07-24 14:22] LABS: CREATININE 2.41 mg/dl (0.44-1.00)
[2017-07-24 14:22] LABS: BLOOD UREA NITROGEN 63 mg/dl (7-20)
[2017-07-24] MEDS: SOD FERRIC GLUC COMPLX 125 MG in SOD CHLORIDE 0.9% 100 ML IVPB (17:40)
[2017-07-24 17:59] LABS: ABNORMAL IP MESSAGE 1; HEMATOCRIT 28.1 % (37.0-47.0); HEMOGLOBIN 9.2 g/dl (12.0-16.0); MEAN CORPUSCULAR HEMOGLOBIN 31.3 pg (29.0-33.0); MEAN CORPUSCULAR HGB CONC 32.7 g/dl (32.0-37.0); MEAN CORPUSCULAR VOLUME 95.6 fl (82.0-101.0); MEAN PLATELET VOLUME 11.2 fl (7.4-10.4); NUCLEATED RED BLOOD CELLS% 0.1 /100WBC (0.0-0.0); PLATELET COUNT 107 10^3/UL (140-415); RED BLOOD COUNT 2.94 10^6/ul (4.20-5.40); RED CELL DISTRIBUTION WIDTH 18.2 % (11.5-14.5)
[2017-07-24 18:01] LABS: ADD MAN DIFF? YES; POSITIVE DIFF @See below
[2017-07-24 19:32] LABS: ANISOCYTOSIS 1+ (0-0); BAND NEUTROPHILS #M 4.6 10^3/ul (0.0-0.6); BAND NEUTROPHILS % (M) 15 % (0-4); ERYTHROBLAST% (NRBC) (M) 3 % (0-0); LYMPHOCYTES % (M) 13 % (15-51); MONOCYTE #M 1.5 10^3/ul (0.3-0.9); MONOCYTES % (M) 5 % (0-11); POLYCHROMASIA 1+ (0-0); SEG NEUT #M 22.2 10^3/ul (1.6-7.5); SEGMENTED NEUTROPHILS (M) % 67 % (39-77); SMUDGE%M 12 % (0-0)
[2017-07-24] MEDS: SOD CHLORIDE 0.9% 1,000 ML IV (22:12)
[2017-07-24 23:02] LABS: LACTIC ACID 2.2 mmol/L (0.5-2.0)
[2017-07-25] MEDS: CLINDAMYCIN 600 MG/D5W (PMX) 50 ML IVPB ×4 (02:49→22:24)
[2017-07-25] MEDS: SOD CHLORIDE 0.9% 1,000 ML IV ×5 (02:56→23:12)
[2017-07-25] MEDS: AMIKACIN 350 MG in DEXTROSE 5% 100 ML IVPB (05:31)
[2017-07-25 06:11] LABS: ABNORMAL IP MESSAGE 1; HEMATOCRIT 24.6 % (37.0-47.0); HEMOGLOBIN 8.1 g/dl (12.0-16.0); MEAN CORPUSCULAR HEMOGLOBIN 31.3 pg (29.0-33.0); MEAN CORPUSCULAR HGB CONC 32.9 g/dl (32.0-37.0); NUCLEATED RED BLOOD CELLS% 0.1 /100WBC (0.0-0.0); PLATELET COUNT 91 10^3/UL (140-415); RED BLOOD COUNT 2.59 10^6/ul (4.20-5.40); RED CELL DISTRIBUTION WIDTH 18.4 % (11.5-14.5)
[2017-07-25 06:11] LABS: WHITE BLOOD COUNT 32.1 10^3/ul (4.8-10.8)
[2017-07-25 06:32] LABS: LACTIC ACID 1.5 mmol/L (0.5-2.0)
[2017-07-25 06:41] LABS: ALANINE AMINOTRANSFERASE 27 IU/L (13-69); ALBUMIN 2.6 g/dl (3.3-4.9); ALBUMIN/GLOBULIN RATIO 0.65; ALKALINE PHOSPHATASE 220 IU/L (42-121); ANION GAP 15 (8-16); ASPARTATE AMINO TRANSFERASE 20 IU/L (15-46); BILIRUBIN,INDIRECT 0.2 mg/dl (0-1.1); BILIRUBIN,TOTAL 0.2 mg/dl (0.2-1.3); BLOOD UREA NITROGEN 78 mg/dl (7-20); CALCIUM 8.2 mg/dl (8.4-10.2); CARBON DIOXIDE 20 mmol/L (21-31); CHLORIDE 112 mmol/L (97-110); CREATININE 2.49 mg/dl (0.44-1.00); GLUCOSE 91 mg/dl (70-220); MAGNESIUM 2.1 mg/dl (1.7-2.5); POTASSIUM 4.5 mmol/L (3.5-5.1); SODIUM 142 mmol/L (135-144); TOTAL PROTEIN 6.6 g/dl (6.1-8.1)
[2017-07-25 06:50] LABS: ADD MAN DIFF? YES; POSITIVE DIFF @See below
[2017-07-25] MEDS: LORATADINE 10 MG TAB PO (08:39)
[2017-07-25] MEDS: CHOLECALCIFEROL 2,000 UNIT CAP PO (08:39)
[2017-07-25] MEDS: POTASSIUM CHLORIDE 100 ML IVPB (08:39)
[2017-07-25] MEDS: AZTREONAM 1 GM/NS (PMX) 50 ML IVPB (08:39)
[2017-07-25] MEDS: HYDROCORTISONE 1% 28 GM CR TOP ×2 (08:42→22:25)
[2017-07-25] MEDS: ENOXAPARIN 30 MG/0.3 ML SYG SC ×2 (09:00→14:27)
[2017-07-25 10:23] LABS: ANISOCYTOSIS 1+ (0-0); BAND NEUTROPHILS #M 2.2 10^3/ul (0.0-0.6); BAND NEUTROPHILS % (M) 7 % (0-4); BURR CELLS 1+ (0-0); EOSINOPHILS % (M) 2 % (0-7); LYMPHOCYTES #M 3.8 10^3/ul (0.8-2.9); LYMPHOCYTES % (M) 12 % (15-51); MONOCYTE #M 1.2 10^3/ul (0.3-0.9); MONOCYTES % (M) 4 % (0-11); MYELOCYTES #M 0.3 10^3/ul (0.0-0.0); MYELOCYTES % (M) 1 % (0-0); PLATELET ESTIMATE DECREASED; POIKILOCYTOSIS 1+ (0-0); POLYCHROMASIA 2+ (0-0); REACTIVE LYMPHOCYTES #M 0.3 10^3/ul (0.0-0.0); REACTIVE LYMPHOCYTES% (M) 1 % (0-0); SEG NEUT #M 24.1 10^3/ul (1.6-7.5); SEGMENTED NEUTROPHILS (M) % 73 % (39-77); SMUDGE%M 5 % (0-0); TOXIC GRANULATION 1+ (0-0)
[2017-07-25] MEDS: CIPROFLOXACIN 500 MG TAB PO (11:50)
[2017-07-25] MEDS ORDERED: IPRATROPIUM (NEB) 0.5 MG/2.5 ML AMP HHN (14:00)
[2017-07-25] MEDS: metroNIDAZOLE 500 MG TAB PO ×2 (14:25→22:25)
[2017-07-25] MEDS ORDERED: *AMIKACIN TROUGH & PEAK XX (15:00)
[2017-07-25 15:33] LABS: ABNORMAL IP MESSAGE 1; HEMATOCRIT 28.3 % (37.0-47.0); HEMOGLOBIN 9.3 g/dl (12.0-16.0); MEAN CORPUSCULAR HEMOGLOBIN 32.2 pg (29.0-33.0); MEAN CORPUSCULAR HGB CONC 32.9 g/dl (32.0-37.0); MEAN CORPUSCULAR VOLUME 97.9 fl (82.0-101.0); NUCLEATED RED BLOOD CELLS% 0.1 /100WBC (0.0-0.0); PLATELET COUNT 95 10^3/UL (140-415); RED BLOOD COUNT 2.89 10^6/ul (4.20-5.40); RED CELL DISTRIBUTION WIDTH 18.1 % (11.5-14.5)
[2017-07-25 15:33] LABS: WHITE BLOOD COUNT 33.4 10^3/ul (4.8-10.8)
[2017-07-25 15:55] LABS: LACTIC ACID 3.7 mmol/L (0.5-2.0)
[2017-07-25 15:57] LABS: ADD MAN DIFF? YES; POSITIVE DIFF @See below
[2017-07-25 16:07] LABS: ANION GAP 17 (8-16); BLOOD UREA NITROGEN 80 mg/dl (7-20); CALCIUM 8.4 mg/dl (8.4-10.2); CARBON DIOXIDE 15 mmol/L (21-31); CHLORIDE 112 mmol/L (97-110); CREATININE 2.09 mg/dl (0.44-1.00); GLUCOSE 160 mg/dl (70-220); SODIUM 139 mmol/L (135-144)
[2017-07-25] MEDS: SOD FERRIC GLUC COMPLX 125 MG in SOD CHLORIDE 0.9% 100 ML IVPB (17:26)
[2017-07-25] MEDS: CIPROFLOXACIN 250 MG TAB PO (17:26)
[2017-07-25 17:30] LABS: BAND NEUTROPHILS #M 2.3 10^3/ul (0.0-0.6); BAND NEUTROPHILS % (M) 7 % (0-4); EOSINOPHILS % (M) 1 % (0-7); GIANT THROMBO% (M) 1 % (0-0); LYMPHOCYTES #M 5.3 10^3/ul (0.8-2.9); LYMPHOCYTES % (M) 16 % (15-51); METAMYELOCYTES #M 0.3 10^3/ul (0.0-0.0); METAMYELOCYTES %M 1 % (0-0); MONOCYTE #M 2.3 10^3/ul (0.3-0.9); MONOCYTES % (M) 7 % (0-11); PLATELET MORPHOLOGY COMMENT @See below; POLYCHROMASIA 1+ (0-0); SEG NEUT #M 23.5 10^3/ul (1.6-7.5); SEGMENTED NEUTROPHILS (M) % 68 % (39-77); SMUDGE%M 6 % (0-0)
[2017-07-25] MEDS ORDERED: AZTREONAM 0.5 GM in SOD CHLORIDE 0.9% 50 ML IV (21:00)
[2017-07-25] MEDS: FUROSEMIDE 20 MG INJ IV (22:54)
[2017-07-26] MEDS: CLINDAMYCIN 600 MG/D5W (PMX) 50 ML IVPB ×3 (05:46→21:17)
[2017-07-26] MEDS: metroNIDAZOLE 500 MG TAB PO ×3 (06:16→21:17)
[2017-07-26] MEDS: CIPROFLOXACIN 250 MG TAB PO ×2 (06:16→18:56)
[2017-07-26] MEDS: SOD CHLORIDE 0.9% 1,000 ML IV (06:18)
[2017-07-26] MEDS: CHOLECALCIFEROL 2,000 UNIT CAP PO (08:54)
[2017-07-26] MEDS: POTASSIUM CHLORIDE 100 ML IVPB (08:54)
[2017-07-26] MEDS: LORATADINE 10 MG TAB PO (08:54)
[2017-07-26] MEDS: HYDROCORTISONE 1% 28 GM CR TOP ×2 (09:01→21:17)
[2017-07-26] MEDS: FLUCONAZOLE 100 MG TAB PO (13:51)
[2017-07-26] MEDS: ENOXAPARIN 30 MG/0.3 ML SYG SC (13:53)
[2017-07-26 14:58] LABS: WHITE BLOOD COUNT 24.3 10^3/ul (4.8-10.8)
[2017-07-26 14:58] LABS: ABNORMAL IP MESSAGE 1; HEMOGLOBIN 9.3 g/dl (12.0-16.0); MEAN CORPUSCULAR HEMOGLOBIN 31.6 pg (29.0-33.0); MEAN CORPUSCULAR HGB CONC 33.2 g/dl (32.0-37.0); MEAN CORPUSCULAR VOLUME 95.2 fl (82.0-101.0); MEAN PLATELET VOLUME 11.6 fl (7.4-10.4); NUCLEATED RED BLOOD CELLS% 0.2 /100WBC (0.0-0.0); PLATELET COUNT 117 10^3/UL (140-415); RED BLOOD COUNT 2.94 10^6/ul (4.20-5.40); RED CELL DISTRIBUTION WIDTH 18.4 % (11.5-14.5)
[2017-07-26 15:02] LABS: ADD MAN DIFF? YES; IRON 144 ug/dl (35-150); POSITIVE DIFF @See below
[2017-07-26 15:05] LABS: ALANINE AMINOTRANSFERASE 49 IU/L (13-69); ALBUMIN 2.9 g/dl (3.3-4.9); ALBUMIN/GLOBULIN RATIO 0.67; ALKALINE PHOSPHATASE 304 IU/L (42-121); ANION GAP 17 (8-16); ASPARTATE AMINO TRANSFERASE 29 IU/L (15-46); BILIRUBIN,INDIRECT 0.2 mg/dl (0-1.1); BILIRUBIN,TOTAL 0.2 mg/dl (0.2-1.3); BLOOD UREA NITROGEN 63 mg/dl (7-20); CALCIUM 8.6 mg/dl (8.4-10.2); CARBON DIOXIDE 18 mmol/L (21-31); CHLORIDE 115 mmol/L (97-110); CREATININE 1.66 mg/dl (0.44-1.00); GLUCOSE 107 mg/dl (70-220); MAGNESIUM 1.7 mg/dl (1.7-2.5); POTASSIUM 4.4 mmol/L (3.5-5.1); SODIUM 146 mmol/L (135-144); TOTAL PROTEIN 7.2 g/dl (6.1-8.1)
[2017-07-26 15:12] LABS: % IRON SATURATION 69 % SAT (22-52); TOTAL IRON BINDING CAPACITY 208 ug/dl (241-421)
[2017-07-26 15:16] LABS: LACTIC ACID 3.5 mmol/L (0.5-2.0)
[2017-07-26] MEDS ORDERED: *AMIKACIN TROUGH & PEAK XX (16:00)
[2017-07-26 19:30] LABS: BAND NEUTROPHILS #M 1.2 10^3/ul (0.0-0.6); BAND NEUTROPHILS % (M) 5 % (0-4); BASOPHIL #M 0.2 10^3/ul (0.0-0.0); BASOPHILS % (M) 1 % (0-2); LYMPHOCYTES #M 3.6 10^3/ul (0.8-2.9); LYMPHOCYTES % (M) 15 % (15-51); METAMYELOCYTES #M 0.2 10^3/ul (0.0-0.0); METAMYELOCYTES %M 1 % (0-0); MONOCYTE #M 2.9 10^3/ul (0.3-0.9); MONOCYTES % (M) 12 % (0-11); MYELOCYTES #M 0.2 10^3/ul (0.0-0.0); MYELOCYTES % (M) 1 % (0-0); PLATELET ESTIMATE DECREASED; SEG NEUT #M 16.1 10^3/ul (1.6-7.5); SEGMENTED NEUTROPHILS (M) % 65 % (39-77); SMUDGE%M 3 % (0-0)
[2017-07-26] MEDS: DIPHENHYDRAMINE 25 MG CAP PO (21:29)
[2017-07-27] MEDS: MAGNESIUM SULFATE 2 GM/50 ML 50 ML IVPB (00:42)
[2017-07-27] MEDS: metroNIDAZOLE 500 MG TAB PO (05:37)
[2017-07-27] MEDS: CIPROFLOXACIN 250 MG TAB PO ×2 (05:37→17:27)
[2017-07-27] MEDS: CLINDAMYCIN 600 MG/D5W (PMX) 50 ML IVPB ×3 (05:37→23:14)
[2017-07-27] MEDS: SOD CHLORIDE 0.9% 1,000 ML IV (05:38)
[2017-07-27 07:58] LABS: WHITE BLOOD COUNT 20.5 10^3/ul (4.8-10.8)
[2017-07-27 07:58] LABS: ABNORMAL IP MESSAGE 1; HEMATOCRIT 25.8 % (37.0-47.0); HEMOGLOBIN 8.5 g/dl (12.0-16.0); MEAN CORPUSCULAR HEMOGLOBIN 31.4 pg (29.0-33.0); MEAN CORPUSCULAR HGB CONC 32.9 g/dl (32.0-37.0); MEAN CORPUSCULAR VOLUME 95.2 fl (82.0-101.0); MEAN PLATELET VOLUME 12.2 fl (7.4-10.4); NUCLEATED RED BLOOD CELLS% 0.5 /100WBC (0.0-0.0); PLATELET COUNT 120 10^3/UL (140-415); RED BLOOD COUNT 2.71 10^6/ul (4.20-5.40); RED CELL DISTRIBUTION WIDTH 18.6 % (11.5-14.5)
[2017-07-27 08:03] LABS: LACTIC ACID 1.4 mmol/L (0.5-2.0)
[2017-07-27 08:04] LABS: POSITIVE DIFF @See below
[2017-07-27 08:05] LABS: ADD MAN DIFF? YES
[2017-07-27] MEDS: POTASSIUM CHLORIDE 100 ML IVPB (08:22)
[2017-07-27] MEDS: FLUCONAZOLE 100 MG TAB PO (08:22)
[2017-07-27] MEDS: CHOLECALCIFEROL 2,000 UNIT CAP PO (08:22)
[2017-07-27] MEDS: LORATADINE 10 MG TAB PO (08:22)
[2017-07-27 08:36] LABS: ALANINE AMINOTRANSFERASE 34 IU/L (13-69); ALBUMIN 2.7 g/dl (3.3-4.9); ALBUMIN/GLOBULIN RATIO 0.64; ALKALINE PHOSPHATASE 293 IU/L (42-121); ANION GAP 17 (8-16); ASPARTATE AMINO TRANSFERASE 24 IU/L (15-46); BILIRUBIN,INDIRECT 0.4 mg/dl (0-1.1); BILIRUBIN,TOTAL 0.4 mg/dl (0.2-1.3); BLOOD UREA NITROGEN 44 mg/dl (7-20); CALCIUM 8.3 mg/dl (8.4-10.2); CARBON DIOXIDE 21 mmol/L (21-31); CHLORIDE 116 mmol/L (97-110); CREATININE 1.31 mg/dl (0.44-1.00); GLUCOSE 109 mg/dl (70-220); POTASSIUM 4.9 mmol/L (3.5-5.1); SODIUM 149 mmol/L (135-144); TOTAL PROTEIN 6.9 g/dl (6.1-8.1)
[2017-07-27] MEDS: HYDROCORTISONE 1% 28 GM CR TOP ×2 (09:00→20:33)
[2017-07-27 10:28] LABS: ANISOCYTOSIS 1+ (0-0); BAND NEUTROPHILS #M 0.4 10^3/ul (0.0-0.6); BAND NEUTROPHILS % (M) 2 % (0-4); EOSINOPHILS % (M) 1 % (0-7); GIANT THROMBO% (M) 2 % (0-0); LYMPHOCYTES #M 3.6 10^3/ul (0.8-2.9); LYMPHOCYTES % (M) 18 % (15-51); METAMYELOCYTES #M 0.2 10^3/ul (0.0-0.0); METAMYELOCYTES %M 1 % (0-0); MONOCYTE #M 2.4 10^3/ul (0.3-0.9); MONOCYTES % (M) 12 % (0-11); MYELOCYTES #M 0.4 10^3/ul (0.0-0.0); MYELOCYTES % (M) 2 % (0-0); PLATELET ESTIMATE DECREASED; POLYCHROMASIA 1+ (0-0); PROMYELOCYTES #M 0.6 10^3/ul (0-0); PROMYELOCYTES % (M) 3 % (0-0); SEG NEUT #M 12.6 10^3/ul (1.6-7.5); SEGMENTED NEUTROPHILS (M) % 61 % (39-77); SMUDGE%M 8 % (0-0)
[2017-07-27] MEDS: DIPHENHYDRAMINE 50 MG INJ IV (13:58)
[2017-07-27] MEDS: ENOXAPARIN 30 MG/0.3 ML SYG SC (14:05)
[2017-07-27] MEDS: METOPROLOL 25 MG TAB PO (20:31)
[2017-07-27] MEDS: DIPHENHYDRAMINE 25 MG CAP PO (20:31)
[2017-07-28] MEDS: CLINDAMYCIN 600 MG/D5W (PMX) 50 ML IVPB ×3 (05:44→21:58)
[2017-07-28] MEDS: CIPROFLOXACIN 250 MG TAB PO ×2 (05:44→17:47)
[2017-07-28] MEDS: METOPROLOL 25 MG TAB PO ×2 (08:31→21:59)
[2017-07-28] MEDS: FLUCONAZOLE 100 MG TAB PO (08:31)
[2017-07-28] MEDS: LORATADINE 10 MG TAB PO (08:31)
[2017-07-28] MEDS: POTASSIUM CHLORIDE 100 ML IVPB (08:31)
[2017-07-28] MEDS: HYDROCORTISONE 1% 28 GM CR TOP ×2 (08:32→21:59)
[2017-07-28] MEDS: CHOLECALCIFEROL 2,000 UNIT CAP PO (08:32)
[2017-07-28] MEDS: FUROSEMIDE 20 MG INJ IV (15:44)
[2017-07-28] MEDS: ENOXAPARIN 30 MG/0.3 ML SYG SC (15:48)
[2017-07-28] MEDS: POLYETHYLENE GLYCOL 17 GM PACKET PO (21:00)
[2017-07-28] MEDS: DIPHENHYDRAMINE 25 MG CAP PO (21:59)
[2017-07-29] MEDS: CIPROFLOXACIN 250 MG TAB PO ×2 (05:06→17:52)
[2017-07-29] MEDS: CLINDAMYCIN 600 MG/D5W (PMX) 50 ML IVPB ×3 (05:09→21:06)
[2017-07-29] MEDS: POLYETHYLENE GLYCOL 17 GM PACKET PO ×2 (09:00→21:00)
[2017-07-29] MEDS: CHOLECALCIFEROL 2,000 UNIT CAP PO (09:33)
[2017-07-29] MEDS: POTASSIUM CHLORIDE 100 ML IVPB (09:33)
[2017-07-29] MEDS: LORATADINE 10 MG TAB PO (09:34)
[2017-07-29] MEDS: FLUCONAZOLE 100 MG TAB PO (09:34)
[2017-07-29] MEDS: METOPROLOL 25 MG TAB PO ×2 (09:34→21:05)
[2017-07-29] MEDS: HYDROCORTISONE 1% 28 GM CR TOP ×2 (09:35→21:06)
[2017-07-29] MEDS: ENOXAPARIN 30 MG/0.3 ML SYG SC (14:29)
[2017-07-29 14:37] LABS: IRON 43 ug/dl (35-150)
[2017-07-29 14:46] LABS: % IRON SATURATION 23 % SAT (22-52); TOTAL IRON BINDING CAPACITY 188 ug/dl (241-421)
[2017-07-29] MEDS: FUROSEMIDE 20 MG TAB PO (17:55)
[2017-07-29] MEDS: NA PHOSPHATE/BIPHOS 133 ML ENEMA PR (18:00)
[2017-07-29] MEDS: DIPHENHYDRAMINE 25 MG CAP PO (21:05)
[2017-07-30] MEDS: CIPROFLOXACIN 250 MG TAB PO ×2 (05:13→17:18)
[2017-07-30] MEDS: CLINDAMYCIN 600 MG/D5W (PMX) 50 ML IVPB ×3 (05:13→23:36)
[2017-07-30 06:07] LABS: ABNORMAL IP MESSAGE 1; HEMATOCRIT 27.1 % (37.0-47.0); HEMOGLOBIN 8.6 g/dl (12.0-16.0); MEAN CORPUSCULAR HGB CONC 31.7 g/dl (32.0-37.0); MEAN CORPUSCULAR VOLUME 97.8 fl (82.0-101.0); MEAN PLATELET VOLUME 11.2 fl (7.4-10.4); NUCLEATED RED BLOOD CELLS% 0.2 /100WBC (0.0-0.0); PLATELET COUNT 228 10^3/UL (140-415); RED BLOOD COUNT 2.77 10^6/ul (4.20-5.40); RED CELL DISTRIBUTION WIDTH 18.8 % (11.5-14.5)
[2017-07-30 06:07] LABS: WHITE BLOOD COUNT 17.1 10^3/ul (4.8-10.8)
[2017-07-30 06:09] LABS: ADD MAN DIFF? YES; POSITIVE DIFF @See below
[2017-07-30 06:51] LABS: ALANINE AMINOTRANSFERASE 34 IU/L (13-69); ALBUMIN 2.6 g/dl (3.3-4.9); ALBUMIN/GLOBULIN RATIO 0.61; ALKALINE PHOSPHATASE 247 IU/L (42-121); ANION GAP 9 (8-16); ASPARTATE AMINO TRANSFERASE 27 IU/L (15-46); BILIRUBIN,INDIRECT 0.5 mg/dl (0-1.1); BILIRUBIN,TOTAL 0.5 mg/dl (0.2-1.3); BLOOD UREA NITROGEN 22 mg/dl (7-20); CALCIUM 8.2 mg/dl (8.4-10.2); CARBON DIOXIDE 27 mmol/L (21-31); CHLORIDE 111 mmol/L (97-110); CREATININE 1.04 mg/dl (0.44-1.00); GLUCOSE 91 mg/dl (70-220); MAGNESIUM 1.5 mg/dl (1.7-2.5); POTASSIUM 4.9 mmol/L (3.5-5.1); SODIUM 142 mmol/L (135-144); TOTAL PROTEIN 6.8 g/dl (6.1-8.1)
[2017-07-30 06:57] LABS: ANISOCYTOSIS 1+ (0-0); BAND NEUTROPHILS #M 1.5 10^3/ul (0.0-0.6); BAND NEUTROPHILS % (M) 9 % (0-4); EOSINOPHILS % (M) 3 % (0-7); ERYTHROBLAST% (NRBC) (M) 1 % (0-0); LYMPHOCYTES % (M) 18 % (15-51); METAMYELOCYTES #M 1.1 10^3/ul (0.0-0.0); METAMYELOCYTES %M 7 % (0-0); MONOCYTE #M 0.6 10^3/ul (0.3-0.9); MONOCYTES % (M) 4 % (0-11); MYELOCYTES #M 0.5 10^3/ul (0.0-0.0); MYELOCYTES % (M) 3 % (0-0); PLATELET ESTIMATE SIG DECREASED; POLYCHROMASIA 2+ (0-0); PROMYELOCYTES #M 0.1 10^3/ul (0-0); PROMYELOCYTES % (M) 1 % (0-0); REACTIVE LYMPHOCYTES #M 0.1 10^3/ul (0.0-0.0); REACTIVE LYMPHOCYTES% (M) 1 % (0-0); SEG NEUT #M 9.5 10^3/ul (1.6-7.5); SEGMENTED NEUTROPHILS (M) % 54 % (39-77); SMUDGE%M 9 % (0-0)
[2017-07-30] MEDS: POLYETHYLENE GLYCOL 17 GM PACKET PO ×2 (09:00→20:30)
[2017-07-30] MEDS: LORATADINE 10 MG TAB PO (09:23)
[2017-07-30] MEDS: CHOLECALCIFEROL 2,000 UNIT CAP PO (09:23)
[2017-07-30] MEDS: POTASSIUM CHLORIDE 100 ML IVPB (09:24)
[2017-07-30] MEDS: FLUCONAZOLE 100 MG TAB PO (09:24)
[2017-07-30] MEDS: FUROSEMIDE 20 MG TAB PO (09:24)
[2017-07-30] MEDS: METOPROLOL 25 MG TAB PO ×2 (09:24→20:30)
[2017-07-30] MEDS: HYDROCORTISONE 1% 28 GM CR TOP ×2 (09:25→20:32)
[2017-07-30] MEDS: MAGNESIUM SULFATE 4 GM/100 ML 100 ML IVPB (12:33)
[2017-07-30] MEDS: ENOXAPARIN 30 MG/0.3 ML SYG SC (14:30)
[2017-07-30] MEDS ORDERED: DIPHENHYDRAMINE 50 MG INJ IV (15:30)
[2017-07-31] MEDS: CIPROFLOXACIN 250 MG TAB PO ×2 (06:59→17:42)
[2017-07-31] MEDS: CLINDAMYCIN 600 MG/D5W (PMX) 50 ML IVPB ×3 (06:59→21:32)
[2017-07-31] MEDS: POLYETHYLENE GLYCOL 17 GM PACKET PO ×3 (08:20→21:00)
[2017-07-31] MEDS: LORATADINE 10 MG TAB PO (08:21)
[2017-07-31] MEDS: POTASSIUM CHLORIDE 100 ML IVPB (08:21)
[2017-07-31] MEDS: METOPROLOL 25 MG TAB PO ×2 (08:22→21:33)
[2017-07-31] MEDS: FUROSEMIDE 20 MG TAB PO (08:22)
[2017-07-31] MEDS: FLUCONAZOLE 100 MG TAB PO (08:23)
[2017-07-31] MEDS: HYDROCORTISONE 1% 28 GM CR TOP ×2 (08:23→21:32)
[2017-07-31] MEDS: CHOLECALCIFEROL 2,000 UNIT CAP PO (08:23)
[2017-07-31] MEDS: ENOXAPARIN 30 MG/0.3 ML SYG SC (14:00)
[2017-08-01] MEDS: CLINDAMYCIN 600 MG/D5W (PMX) 50 ML IVPB ×3 (06:05→22:29)
[2017-08-01] MEDS: CIPROFLOXACIN 250 MG TAB PO ×2 (06:06→17:05)
[2017-08-01] MEDS: FLUCONAZOLE 100 MG TAB PO (08:58)
[2017-08-01] MEDS: CHOLECALCIFEROL 2,000 UNIT CAP PO (08:58)
[2017-08-01] MEDS: LORATADINE 10 MG TAB PO (08:58)
[2017-08-01] MEDS: POLYETHYLENE GLYCOL 17 GM PACKET PO ×2 (09:00→21:00)
[2017-08-01] MEDS: METOPROLOL 25 MG TAB PO ×2 (09:03→22:29)
[2017-08-01] MEDS: HYDROCORTISONE 1% 28 GM CR TOP ×2 (09:04→21:00)
[2017-08-01] MEDS: FUROSEMIDE 20 MG TAB PO (09:04)
[2017-08-01] MEDS: POTASSIUM CHLORIDE 100 ML IVPB (09:04)
[2017-08-01] MEDS: ENOXAPARIN 30 MG/0.3 ML SYG SC (13:22)
[2017-08-02] MEDS: GUAIFENESIN/CODEINE 5ML CUP PO (00:12)
[2017-08-02] MEDS: CLINDAMYCIN 600 MG/D5W (PMX) 50 ML IVPB ×3 (05:30→21:00)
[2017-08-02] MEDS: CIPROFLOXACIN 250 MG TAB PO ×2 (05:30→18:34)
[2017-08-02 07:02] LABS: ALANINE AMINOTRANSFERASE 39 IU/L (13-69); ALBUMIN/GLOBULIN RATIO 0.61; ALKALINE PHOSPHATASE 228 IU/L (42-121); ANION GAP 10 (8-16); ASPARTATE AMINO TRANSFERASE 30 IU/L (15-46); BILIRUBIN,INDIRECT 0.6 mg/dl (0-1.1); BILIRUBIN,TOTAL 0.6 mg/dl (0.2-1.3); BLOOD UREA NITROGEN 20 mg/dl (7-20); CALCIUM 8.3 mg/dl (8.4-10.2); CARBON DIOXIDE 27 mmol/L (21-31); CHLORIDE 106 mmol/L (97-110); CREATININE 1.17 mg/dl (0.44-1.00); GLUCOSE 99 mg/dl (70-220); MAGNESIUM 1.7 mg/dl (1.7-2.5); POTASSIUM 4.8 mmol/L (3.5-5.1); SODIUM 138 mmol/L (135-144); TOTAL PROTEIN 7.9 g/dl (6.1-8.1)
[2017-08-02 07:12] LABS: IRON 98 ug/dl (35-150)
[2017-08-02 07:22] LABS: % IRON SATURATION 48 % SAT (22-52); TOTAL IRON BINDING CAPACITY 206 ug/dl (241-421)
[2017-08-02 08:03] LABS: C-REACTIVE PROTEIN 2.4 mg/dl (0.0-0.9)
[2017-08-02 08:06] LABS: ERYTHROCYTE SEDIMENTATION RATE 133 mm/Hr (0-30)
[2017-08-02] MEDS: POLYETHYLENE GLYCOL 17 GM PACKET PO ×2 (09:00→20:59)
[2017-08-02] MEDS: LORATADINE 10 MG TAB PO (09:49)
[2017-08-02] MEDS: FUROSEMIDE 20 MG TAB PO (09:49)
[2017-08-02] MEDS: CHOLECALCIFEROL 2,000 UNIT CAP PO (09:50)
[2017-08-02] MEDS: FLUCONAZOLE 100 MG TAB PO (09:50)
[2017-08-02] MEDS: HYDROCORTISONE 1% 28 GM CR TOP ×2 (09:50→20:58)
[2017-08-02] MEDS: METOPROLOL 25 MG TAB PO ×2 (09:50→20:58)
[2017-08-02] MEDS: MAGNESIUM SULFATE 2 GM/50 ML 50 ML IVPB ×2 (10:41→19:30)
[2017-08-02 11:00] LABS: ADD UMIC NO; UR ASCORBIC ACID NEGATIVE (NEGATIVE); UR BILIRUBIN (Dip) NEGATIVE (NEGATIVE); UR BLOOD (Dip) NEGATIVE (NEGATIVE); UR CLARITY CLEAR (CLEAR); UR COLOR YELLOW (YELLOW); UR GLUCOSE (Dip) NEGATIVE (NEGATIVE); UR KETONES (Dip) NEGATIVE (NEGATIVE); UR LEUKOCYTE ESTERASE (Dip) NEGATIVE Leu/ul (NEGATIVE); UR NITRITE (Dip) NEGATIVE (NEGATIVE); UR SPECIFIC GRAVITY (Dip) 1.009 (1.003-1.030); UR TOTAL PROTEIN (Dip) NEGATIVE (NEGATIVE); UR UROBILINOGEN (Dip) NEGATIVE (NEGATIVE)
[2017-08-02] MEDS: ENOXAPARIN 30 MG/0.3 ML SYG SC (14:24)
[2017-08-03] MEDS: CLINDAMYCIN 600 MG/D5W (PMX) 50 ML IVPB ×3 (05:35→21:16)
[2017-08-03] MEDS: CIPROFLOXACIN 250 MG TAB PO ×2 (05:38→17:47)
[2017-08-03] MEDS: FLUCONAZOLE 100 MG TAB PO (08:51)
[2017-08-03] MEDS: FUROSEMIDE 20 MG TAB PO (08:51)
[2017-08-03] MEDS: LORATADINE 10 MG TAB PO (08:51)
[2017-08-03] MEDS: CHOLECALCIFEROL 2,000 UNIT CAP PO (08:52)
[2017-08-03] MEDS: HYDROCORTISONE 1% 28 GM CR TOP ×2 (08:52→21:15)
[2017-08-03] MEDS: METOPROLOL 25 MG TAB PO ×2 (08:52→21:15)
[2017-08-03] MEDS: POLYETHYLENE GLYCOL 17 GM PACKET PO ×2 (08:54→21:00)
[2017-08-03] MEDS: MAGNESIUM SULFATE 2 GM/50 ML 50 ML IVPB (08:56)
[2017-08-03] MEDS: ENOXAPARIN 30 MG/0.3 ML SYG SC (14:10)
[2017-08-04] MEDS: CLINDAMYCIN 600 MG/D5W (PMX) 50 ML IVPB ×3 (05:51→21:08)
[2017-08-04] MEDS: CIPROFLOXACIN 250 MG TAB PO ×2 (05:51→17:24)
[2017-08-04] MEDS: SOD CHLORIDE 0.9% 100 ML (08:37)
[2017-08-04] MEDS: METOPROLOL 25 MG TAB PO ×2 (08:38→21:03)
[2017-08-04] MEDS: LORATADINE 10 MG TAB PO (08:38)
[2017-08-04] MEDS: IOHEXOL 300MG/ML 150 ML BTL (08:38)
[2017-08-04] MEDS: CHOLECALCIFEROL 2,000 UNIT CAP PO (08:38)
[2017-08-04] MEDS: FLUCONAZOLE 100 MG TAB PO (08:38)
[2017-08-04] MEDS: FUROSEMIDE 20 MG TAB PO (08:38)
[2017-08-04] MEDS: HYDROCORTISONE 1% 28 GM CR TOP ×2 (08:39→21:03)
[2017-08-04] MEDS: POLYETHYLENE GLYCOL 17 GM PACKET PO ×3 (08:39→21:00)
[2017-08-04 12:22] LABS: ADD MAN DIFF? NO
[2017-08-04 12:28] LABS: WHITE BLOOD COUNT 8.1 10^3/ul (4.8-10.8)
[2017-08-04 12:28] LABS: BASOPHIL # 0.1 10^3/ul (0.0-0.1); BASOPHILS % 1.1 % (0.0-2.0); EOSINOPHILS # 0.2 10^3/ul (0.0-0.5); EOSINOPHILS % 1.9 % (0.0-7.0); HEMOGLOBIN 8.8 g/dl (12.0-16.0); LYMPHOCYTES # 2.5 10^3/ul (0.8-2.9); LYMPHOCYTES % 31.2 % (15.0-51.0); MEAN CORPUSCULAR HEMOGLOBIN 31.8 pg (29.0-33.0); MEAN CORPUSCULAR HGB CONC 31.4 g/dl (32.0-37.0); MEAN CORPUSCULAR VOLUME 101.1 fl (82.0-101.0); MEAN PLATELET VOLUME 10.6 fl (7.4-10.4); MONOCYTES % 12.1 % (0.0-11.0); NEUTROPHIL # 4.3 10^3/ul (1.6-7.5); NEUTROPHILS % 53.1 % (39.0-77.0); PLATELET COUNT 379 10^3/UL (140-415); RED BLOOD COUNT 2.77 10^6/ul (4.20-5.40); RED CELL DISTRIBUTION WIDTH 17.4 % (11.5-14.5)
[2017-08-04] MEDS: ENOXAPARIN 30 MG/0.3 ML SYG SC (13:37)
[2017-08-05] MEDS: CIPROFLOXACIN 250 MG TAB PO ×2 (05:34→18:02)
[2017-08-05] MEDS: CLINDAMYCIN 600 MG/D5W (PMX) 50 ML IVPB ×2 (05:34→13:50)
[2017-08-05] MEDS: FLUCONAZOLE 100 MG TAB PO (08:24)
[2017-08-05] MEDS: FUROSEMIDE 20 MG TAB PO (08:24)
[2017-08-05] MEDS: LORATADINE 10 MG TAB PO (08:24)
[2017-08-05] MEDS: CHOLECALCIFEROL 2,000 UNIT CAP PO (08:25)
[2017-08-05] MEDS: METOPROLOL 25 MG TAB PO ×2 (08:25→20:23)
[2017-08-05] MEDS: POLYETHYLENE GLYCOL 17 GM PACKET PO (08:25)
[2017-08-05] MEDS: HYDROCORTISONE 1% 28 GM CR TOP ×2 (08:27→20:23)
[2017-08-05] MEDS: ENOXAPARIN 30 MG/0.3 ML SYG SC (14:00)
[2017-08-05] MEDS: CLINDAMYCIN 150 MG CAP PO ×2 (15:54→22:27)
[2017-08-06] MEDS: FLUCONAZOLE 100 MG TAB PO (08:36)
[2017-08-06] MEDS: CIPROFLOXACIN 250 MG TAB PO ×2 (08:36→17:56)
[2017-08-06] MEDS: CHOLECALCIFEROL 2,000 UNIT CAP PO (08:36)
[2017-08-06] MEDS: CLINDAMYCIN 150 MG CAP PO ×3 (08:36→22:21)
[2017-08-06] MEDS: FUROSEMIDE 20 MG TAB PO (08:36)
[2017-08-06] MEDS: HYDROCORTISONE 1% 28 GM CR TOP ×2 (08:36→20:09)
[2017-08-06] MEDS: LORATADINE 10 MG TAB PO (08:36)
[2017-08-06] MEDS: METOPROLOL 25 MG TAB PO ×2 (08:36→20:08)
[2017-08-06] MEDS: ENOXAPARIN 30 MG/0.3 ML SYG SC (13:21)
[2017-08-07 06:05] LABS: ADD MAN DIFF? NO
[2017-08-07 06:15] LABS: BASOPHIL # 0.1 10^3/ul (0.0-0.1); BASOPHILS % 1.4 % (0.0-2.0); EOSINOPHILS # 0.2 10^3/ul (0.0-0.5); EOSINOPHILS % 2.7 % (0.0-7.0); HEMATOCRIT 28.2 % (37.0-47.0); HEMOGLOBIN 9.1 g/dl (12.0-16.0); LYMPHOCYTES % 47.3 % (15.0-51.0); MEAN CORPUSCULAR HEMOGLOBIN 32.5 pg (29.0-33.0); MEAN CORPUSCULAR HGB CONC 32.3 g/dl (32.0-37.0); MEAN CORPUSCULAR VOLUME 100.7 fl (82.0-101.0); MEAN PLATELET VOLUME 10.2 fl (7.4-10.4); MONOCYTES % 16.3 % (0.0-11.0); NEUTROPHILS % 31.7 % (39.0-77.0); PLATELET COUNT 404 10^3/UL (140-415); RED CELL DISTRIBUTION WIDTH 16.9 % (11.5-14.5)
[2017-08-07 06:15] LABS: WHITE BLOOD COUNT 6.4 10^3/ul (4.8-10.8)
[2017-08-07] MEDS: CLINDAMYCIN 150 MG CAP PO (06:16)
[2017-08-07] MEDS: CIPROFLOXACIN 250 MG TAB PO (06:16)
[2017-08-07 06:54] LABS: IRON 72 ug/dl (35-150)
[2017-08-07 07:03] LABS: % IRON SATURATION 33 % SAT (22-52); TOTAL IRON BINDING CAPACITY 221 ug/dl (241-421)
[2017-08-07 07:07] LABS: ALANINE AMINOTRANSFERASE 39 IU/L (13-69); ALBUMIN 2.9 g/dl (3.3-4.9); ALBUMIN/GLOBULIN RATIO 0.64; ALKALINE PHOSPHATASE 182 IU/L (42-121); ANION GAP 9 (8-16); ASPARTATE AMINO TRANSFERASE 27 IU/L (15-46); BILIRUBIN,INDIRECT 0.2 mg/dl (0-1.1); BILIRUBIN,TOTAL 0.2 mg/dl (0.2-1.3); BLOOD UREA NITROGEN 25 mg/dl (7-20); CALCIUM 8.6 mg/dl (8.4-10.2); CARBON DIOXIDE 24 mmol/L (21-31); CHLORIDE 110 mmol/L (97-110); CREATININE 1.16 mg/dl (0.44-1.00); GLUCOSE 88 mg/dl (70-220); MAGNESIUM 1.9 mg/dl (1.7-2.5); POTASSIUM 4.7 mmol/L (3.5-5.1); SODIUM 138 mmol/L (135-144); TOTAL PROTEIN 7.4 g/dl (6.1-8.1)
[2017-08-07] MEDS: FLUCONAZOLE 100 MG TAB PO (08:36)
[2017-08-07] MEDS: LORATADINE 10 MG TAB PO (08:36)
[2017-08-07] MEDS: CHOLECALCIFEROL 2,000 UNIT CAP PO (08:37)
[2017-08-07] MEDS: METOPROLOL 25 MG TAB PO (08:37)
[2017-08-07] MEDS: FUROSEMIDE 20 MG TAB PO (08:37)
[2017-08-07] MEDS: HYDROCORTISONE 1% 28 GM CR TOP (08:39)
[2017-08-07 09:17] LABS: C-REACTIVE PROTEIN 2.7 mg/dl (0.0-0.9)
[2017-08-07 10:10] LABS: ERYTHROCYTE SEDIMENTATION RATE 125 mm/Hr (0-30)
== END 2017-08-07 14:50 | disposition home or self-care (01) | DRG 871 ==
LOC: TEL 06-11 19:58 → MS2 08-01 20:40 → E/R 17:13 → MS2 06-20 15:11 → TEL 20:44
PROC: 0FB23ZX Excision of Left Lobe Liver, Percutaneous Approach, Diagnostic (ICD-10-PCS; principal; 2017-07-06 11:40)
PROC: 0F9130Z Drainage of Right Lobe Liver with Drainage Device, Percutaneous Approach (ICD-10-PCS; 2017-07-06 11:40)
PROC: 0F9230Z Drainage of Left Lobe Liver with Drainage Device, Percutaneous Approach (ICD-10-PCS; 2017-07-06 11:40)
PROC: 0F9130Z Drainage of Right Lobe Liver with Drainage Device, Percutaneous Approach (ICD-10-PCS; 2017-07-06 11:40)
PROC: 0W993ZX Drainage of Right Pleural Cavity, Percutaneous Approach, Diagnostic (ICD-10-PCS; 2017-07-06 11:40)
DX: A40.8 Other streptococcal sepsis (principal); N17.0 Acute kidney failure with tubular necrosis; T80.211A Bloodstream infection due to central venous catheter, initial encounter; I50.31 Acute diastolic (congestive) heart failure; K75.0 Abscess of liver; J18.9 Pneumonia, unspecified organism; E87.2 Acidosis; E87.0 Hyperosmolality and hypernatremia; J90 Pleural effusion, not elsewhere classified; K61.1 Rectal abscess; N39.0 Urinary tract infection, site not specified; B37.49 Other urogenital candidiasis; R65.20 Severe sepsis without septic shock; E66.9 Obesity, unspecified; Z68.35 Body mass index [BMI] 35.0-35.9, adult; K57.90 Diverticulosis of intestine, part unspecified, without perforation or abscess without bleeding; D64.9 Anemia, unspecified; K21.9 Gastro-esophageal reflux disease without esophagitis; G47.30 Sleep apnea, unspecified; K59.00 Constipation, unspecified; E87.6 Hypokalemia; L50.9 Urticaria, unspecified; E86.0 Dehydration; D73.3 Abscess of spleen; J32.0 Chronic maxillary sinusitis; I11.0 Hypertensive heart disease with heart failure; E55.9 Vitamin D deficiency, unspecified; E23.6 Other disorders of pituitary gland; I48.0 Paroxysmal atrial fibrillation; S90.01XA Contusion of right ankle, initial encounter; S40.012A Contusion of left shoulder, initial encounter; W19.XXXA Unspecified fall, initial encounter; Y92.012 Bathroom of single-family (private) house as the place of occurrence of the external cause; A41.59 Other Gram-negative sepsis; L27.0 Generalized skin eruption due to drugs and medicaments taken internally; S00.521A Blister (nonthermal) of lip, initial encounter; T36.1X5A Adverse effect of cephalosporins and other beta-lactam antibiotics, initial encounter; I25.10 Atherosclerotic heart disease of native coronary artery without angina pectoris; E83.51 Hypocalcemia
CPT/HCPCS: 36415; 36589; 70450; 70551; 71045; 71260; 72170; 73030; 73030-RT; 73600; 73620; 74176; 74177; 74181; 75989; 76705; 76942; 77012; 78306; 80048; 80053; 80202; 81001; 81003; 82042; 82105; 82150; 82247; 82248; 82270; 82306; 82378; 82533; 82565; 82570; 82607; 82668; 82728; 82746; 83036; 83540; 83605; 83615; 83690; 83735; 83970; 84100; 84132; 84146; 84155; 84165; 84300; 84439; 84443; 84484; 84520; 84560; 85025; 85045; 85610; 85651; 85730; 86140; 86300; 86301; 86304; 86704; 86709; 86803; 86850; 86900; 86901; 86920; 87040; 87045; 87070; 87075; 87086; 87102; 87116; 87340; 88104; 88307; 88313; 89051; 92526; 92610; 93005; 93306; 93308; 93312; 93970; 96374; 96375; 96376; 97110; 97116; 97162; 97530; 99291-25; A9503